=== PATIENT | female | born 1985 | race Caucasian/White ===

== ENCOUNTER 2019-10-02 11:47 | Emergency (ER) | payer OTHER, SELFPAY ==
--- NOTE | 2019-10-02 11:52 | ED.GENADULT ---
HPI - General Adult General Chief complaint: Urogenital-Female Stated complaint: bladder infection Time Seen by Provider: 10/02/19 11:53 Source: patient Mode of arrival: ambulatory Limitations: no limitations History of Present Illness HPI narrative: 33-year-old female patient presents to the [facility] with complaints of urinary symptoms that started yesterday. Patient states she tried to call her doctor's office but they were gone for the day already. Patient states she has had burning with urination, and increase in frequency. Patient states she did have a little bit of pelvic pain as well. Denies any low back pain, fevers, nausea, vomiting or diarrhea. Patient denies any due to a partial hysterectomy. Patient does admit that she has not been drinking much water and typically drinks sweet tea during the day. Related Data Home Medications Medication Instructions Recorded Confirmed Depakote 10/02/19 Zyprexa 10/02/19 10/02/19 atenolol 10/02/19 diazepam 10/02/19 methotrexate 10/02/19 olanzapine 10/02/19 oxcarbazepine 10/02/19 Allergies Allergy/AdvReac Type Severity Reaction Status Date / Time No Known Allergies Allergy Verified 10/02/19 12:03 Review of Systems Review of Systems: Narrative: CONSTITUTIONAL: Denies fever, chills, or sweats. EYES: Denies visual changes, redness, or discharge. ENT: Denies rhinorrhea, congestion, sore throat, or otalgia. CARDIOVASCULAR: Denies chest pain, palpitations, or edema. RESPIRATORY: Denies cough or dyspnea. GASTROINTESTINAL: Denies abdominal pain, nausea, vomiting, or diarrhea. GENITOURINARY: Denies dysuria or hematuria. Positive pain with urination and increase in frequency since yesterday SKIN: Denies rash or itching. MUSCULOSKELETAL: Denies back pain, joint pain, or myalgia. NEUROLOGIC: Denies headache, numbness, or weakness. PSYCHIATRIC: Denies anxiety or depression. [facility] Family History Family History Mother Family history of diabetes mellitus in first degree relative Grandparent Family history of malignant neoplasm of bone Social History Social History Alcohol intake: never Comments At the time of my signature I agree with nursing past medical history, surgical, social, and family history. There is no relevant family history pertinent to the presenting complaint. Exam Narrative: Exam Narrative: GENERAL: Well-appearing, well-nourished, and in no acute distress. HEAD: Normocephalic, atraumatic. EYES: PERRLA and EOMI. ENT: Nares clear, no rhinorrhea or epistaxis. Mucous membranes moist. NECK: Supple. No lymphadenopathy CHEST: Clear to auscultation. No respiratory distress. HEART: Regular rate and rhythm. No murmur heard. Normal peripheral pulses. ABDOMEN: Soft, nontender, nondistended, normal active bowel sounds. No CVA tenderness on percussion. EXTREMITIES: Normal range of motion. No edema. SKIN: Warm, dry, no rash. NEURO: No focal deficits. Alert and oriented x3. Course Vital Signs Vital signs: Vital Signs Temperature 36.1 C L 10/02/19 11:53 Pulse Rate 106 H 10/02/19 11:53 Respiratory Rate 18 10/02/19 11:53 Blood Pressure 125/65 10/02/19 11:53 Pulse Oximetry 100 10/02/19 11:53 Temperature 36.1 C L 10/02/19 11:53 Pulse Rate 106 H 10/02/19 11:53 Respiratory Rate 18 10/02/19 11:53 Blood Pressure 125/65 10/02/19 11:53 Pulse Oximetry 100 10/02/19 11:53 Vital signs reviewed. Medical Decision Making Differential Diagnosis Differential Diagnosis: Differential diagnosis: Uncomplicated lower UTI, uncomplicated UTI, pyelonephritis Discussed with patient that her urine dip did not show any nitrates or leukocytes however it is suggestive that she could be a little dehydrated. Discussed with her that since she is having symptoms we will go ahead and start her on some antibiotics today and send h
[2019-10-02 11:53] VITALS: BP 125/65; PULSE 106; RESP 18; TEMP 36.1; O2SAT 100
== END 2019-10-02 12:15 | disposition home or self-care (01) ==
PROVIDERS: Emergency Provider Nurse Practitioner Family
DX: N30.01 Acute cystitis with hematuria (principal)
CPT/HCPCS: 81003; 87086; 99213; G0463

== ENCOUNTER 2019-11-19 00:47 | Outpatient (CLI) | payer OTHER, SELFPAY ==
[2019-11-19 17:52] LABS: SARS-CoV-2 RNA PCR Negative
== END 2019-11-19 00:48 | disposition home or self-care (01) ==
LOC: ANHCOVIDDT 00:48
PROVIDERS: Visit Provider Obstetrics & Gynecology
DX: Z01.818 Encounter for other preprocedural examination (principal); Z11.59 Encounter for screening for other viral diseases
CPT/HCPCS: 87635; C9803; U0003

== ENCOUNTER 2019-11-19 13:53 | Outpatient (CLI) | payer OTHER, SELFPAY ==
[2019-11-19 15:14] LABS: Valproic Acid < 10.0 ug/mL (50-120)
== END 2019-11-19 13:54 | disposition home or self-care (01) ==
PROVIDERS: Anesthesiology; PCP Internal Medicine; Visit Provider Obstetrics & Gynecology
DX: Z01.818 Encounter for other preprocedural examination (principal); F31.9 Bipolar disorder, unspecified; R10.2 Pelvic and perineal pain
CPT/HCPCS: 36415; 80164; 86850; 86900; 86901

== ENCOUNTER 2019-11-22 02:42 | Day surgery (SDC) | payer OTHER, SELFPAY ==
--- NOTE | 2019-11-17 10:22 | P.HP_ITS ---
H&P: HPI History of Present Illness Chief complaint: Pain Narrative: Cherrie Delgado is a 33 year old female Status post this who is admitted for diagnostic laparoscopy. She has had several ER visits with severe pelvic pain. CT and ultrasound were helpful. She is finding the pain unrelenting fast for laparoscopy. risks and benefits reviewed including but not exclusive of , aspiration pneumonia, bleeding, transfusion, perforation injury to bowel, bladder, ureters or other internal organs with need for laparotomy. She voiced understanding. She had all questions answered. She asked to proceed Review of Systems Review of Systems: All systems reviewed & are unremarkable except as noted in HPI and below [facility] Social History Social History Alcohol intake: never Gender identity (if verbalized by the patient): Female Meds Home Medications and Allergies Home Medications Medication Instructions Recorded Confirmed Type nitrofurantoin monohyd/m-cryst 100 mg PO Q12H 5 Days #10 cap 10/02/19 Rx [Macrobid] ondansetron 4 mg PO Q6H PRN #10 tablet 10/02/19 Rx methotrexate sodium 15 mg PO WEEKLY 11/17/19 11/17/19 History Allergies Allergy/AdvReac Type Severity Reaction Status Date / Time No Known Allergies Allergy Verified 11/17/19 09:54 Exam Const: General: no acute distress Eyes: General: appearance normal, both eyes and all related structures Neck: Neck: supple and no JVD Thyroid: thyroid normal Resp: Effort & Inspection: normal respiratory effort Auscultation: clear to auscultation bilaterally Cardio: Rate: regular rate Rhythm: regular rhythm GI: Inspection: non-distended GI Palp: Yes Soft to palpation, No Tenderness to palpation present (GI) and No Guarding due to palpation present (GI) Auscultation: normal bowel sounds : General: Yes bladder normal to inspection External Female Exam: normal external appearance Speculum Exam - Vagina: normal appearance of the vagina and tenderness Speculum Exam - Cervix: Cervix absent Bimanual exam- vagina & uterus: uterus absent Bimanual Exam- Adnexa, other: tender bilaterally Skin: General skin exam: no rashes or lesions noted Extrem: General: normal to inspection and no edema Psych: Mental Status: mental status grossly normal Affect: normal affect Assessment and Plan Additional Plan impression: Severe pelvic pain Plan: Diagnostic laparoscopy
[2019-11-17 10:44] VITALS: BMI 20.7
[2019-11-22] VITALS (10 sets, daily range): BP systolic 93–129; BP diastolic 62–75; PULSE 77–113; RESP 10–16; TEMP 36.1–36.2; O2SAT 98–100
--- NOTE | 2019-11-22 06:39 | WPDHPUPDATE1 ---
History and Physical Update Update Date/Time: 11/22/19 06:39 History and Physical has been reviewed, including an updated exam of the patient. There are NO changes in the patient's condition. Risks, benefits, and alternatives have been discussed and questions answered. Patient agrees to proceed with procedure.
[2019-11-22] MEDS: LACTATED RINGERS 1,000 ML 30 ML IV CONT ×2 (08:30→10:32)
[2019-11-22] MEDS: MIDAZOLAM HCL 2 MG/2 ML VIAL IV PUSH (09:10)
--- NOTE | 2019-11-22 09:22 | WPDANESEPPF ---
Anes - Initial Pre Proc Eval Procedure: Operation Date: 11/22/19 10:00 Proposed Procedures p Diagnostic Laparoscopy - Addy Betancourt MD Date/Time: 11/22/19 09:22 Surgeon: Addy Betancourt MD Pre Op Diagnosis: Pain Patient Data Age: 33 Gender: F Height: 1.65 m Weight: 55.4 kg Last Vital Signs Temp 36.2 C L 11/22/19 09:14 Pulse 113 H 11/22/19 09:14 BP 129/75 11/22/19 09:14 Pulse Ox 100 11/22/19 09:14 Allergies Allergy/AdvReac Type Severity Reaction Status Date / Time No Known Allergies Allergy Verified 11/17/19 09:54 Home Medications Medication Instructions Recorded Confirmed Type atenolol 25 mg PO BID 11/17/19 11/22/19 History divalproex 500 mg PO HS 11/17/19 11/22/19 History lisdexamfetamine [Vyvanse] 30 mg PO DAILY 11/17/19 11/22/19 History methotrexate sodium 15 mg PO WEEKLY 11/17/19 11/22/19 History olanzapine 15 mg PO EVERY OTHER DAY 11/17/19 11/22/19 History zolpidem 10 mg PO HS 11/17/19 11/22/19 History Patient hx anesthesia problems: none Family hx anesthesia problems: none PMFSH Past Medical History Medical History (Updated 11/19/19 @ 13:21 by Alessandro Pinto DO) ADD (attention deficit disorder) Anxiety Bipolar disorder Depression Psoriasis Surgical History Surgical History (Updated 11/19/19 @ 13:21 by Alessandro Pinto DO) History of hysterectomy Social History Social History Alcohol intake: never Gender identity (if verbalized by the patient): Female Anes - Eval Final PreProcedure Day of Procedure 11/22/19 09:22 Patient weight: normal Heart: regular rate and rhythm Lungs: clear to auscultation and normal air movement Airway: Mallampati scale class II Neurological: alert and oriented Last oral intake: >/= 8 hours ASA classification: II Emergent: no Anesthetic plan: proceed Anesthesia type and monitoring: general ETT and standard monitoring Informed Consent: The patient's anesthetic plan and its attendant risks and benefits were discussed with the patient/family/POA. Questions were solicited and answers provided to the satisfaction of the patient/family/POA.
[2019-11-22] MEDS: KETOROLAC 30 MG/ML VIAL (*BKC) IV PUSH (10:03)
--- NOTE | 2019-11-22 10:10 | PM.PROC ---
Procedure Note - Detailed Date of procedure: 11/22/19 Pre-op diagnosis: Pain Surgeon: Addy Betancourt MD Postop diagnosis: Pelvic pain/endometriosis/adhesions Procedure: Laparoscopic destruction of endometriosis. Lysis of adhesions Anesthesia: General endotracheal EBL: 5cc Complications: None Findings: Absent uterus and tubes. Normal-appearing ovaries. Pelvic adhesions in the left lateral sidewall from the to the colon. Endometrial implants along the right uterus sacral ligaments Description of procedure: The patient was prepped and draped in the normal sterile fashion placed in dorsal lithotomy position. Under excellent general trach anesthesia weighted speculum placed in the posterior fornix of vagina. Sponge stick was placed in the bladder was drained of about 500cc of clear urine. Weighted speculum was removed and gloves were changed. A supraumbilical incision made patient passed in the abdomen. Abdomen was filled with CO2 gas [id number]. The 5mm trocar was placed in the abdomen under direct visualization assuring no injury. The patient placed in Trendelenburg and a suprapubic incision made. The 5mm trocar advanced in the abdomen under direct visualization assuring no injury. The above findings were seen the areas of endometriosis along the right uterosacral ligament were cauterized at 35 w per 2nd with monopolar cautery. The ovaries appeared within normal limits the adhesions on left were sharply dissected and cleared. The remainder of the pelvis a normal limits. The appendix and gallbladder appeared within normal limits. The patient patient was awakened after removal of the trocars and the gas. The incisions were closed with 4 Monocryl and glue patient went recovery in satisfactory condition. All sponge instrument counts were correct. There were no complications
[2019-11-22] MEDS: ONDANSETRON INJ 4 MG/2 ML VIAL IV PUSH (12:15)
--- NOTE | 2019-11-22 13:28 | SUR.PHASEII ---
1305 A WRITTEN PRESCRIPTION FOR NORCO 5/325MG SENT HOME WITH PT.
== END 2019-11-22 13:07 | disposition home or self-care (01) ==
PROVIDERS: PCP Internal Medicine; Visit Provider Obstetrics & Gynecology
PROC: (CPT 49320; principal; 2019-11-22 10:00)
DX: R10.2 Pelvic and perineal pain (principal); N80.3 Endometriosis of pelvic peritoneum; N73.6 Female pelvic peritoneal adhesions (postinfective); F98.8 Other specified behavioral and emotional disorders with onset usually occurring in childhood and adolescence; F31.9 Bipolar disorder, unspecified; F41.9 Anxiety disorder, unspecified
CPT/HCPCS: 58662; A9270; J0330; J1100; J1885; J2250; J2405; J2704; J3010; J7030; J7120

== ENCOUNTER 2020-12-13 11:47 | Outpatient (CLI) | payer OTHER, SELFPAY ==
--- NOTE | ~2020-12-13 | MMUS_ITS ---
EXAMINATION: MM diagnostic jhonathan BI w lucrecia, US breast RT limited HISTORY: Palpable lump in the upper outer quadrant of the right breast TECHNIQUE: Craniocaudal, mediolateral, and mediolateral oblique 3-D tomosynthesis images of the honorio ts were performed and synthetic 2-D images were generated. CAD analysis was submitted and interpreted . High resolution limited right breast ultrasound was performed. COMPARISON: None, baseline BREAST PARENCHYMAL COMPOSITION: The breasts are extremely dense, which lowers the sensitivity of mamm ography. FINDINGS: MAMMOGRAPHIC FINDINGS: There is a 1.7 x 1.2 cm oval, obscured, equal density mass in the anterior third of the upper outer q uadrant of the right breast at the 10:00 location 1.7 cm from the nipple corresponding to the palpabl e abnormality of concern. There is no evidence of suspicious mass, calcification, or architectural di stortion to suggest malignancy in the left breast. ULTRASOUND: There is a 1.7 x 1.1 cm oval, circumscribed, parallel, hypoechoic mass with posterior acoustic enhanc ement and internal vascularity at the 10:00 location 3 cm from the nipple responding to the palpable abnormality of concern. IMPRESSION: 1. Right breast mass corresponding to the palpable abnormality of concern which has imaging features suggestive of a fibroadenoma however, patient reports the mass is newly palpable and painful. 2. Ultrasound-guided biopsy is recommended. BI-RADS category 4, suspicious findings. Reviewed, dictated and finalized at location A. IMPRESSION: 1. Right breast mass corresponding to the palpable abnormality of concern which has imaging features suggestive of a fibroadenoma however, patient reports the mass is newly palpable and painful. 2. Ultrasound-guided biopsy is recommended. BI-RADS category 4, suspicious findings.
== END 2020-12-13 11:48 | disposition home or self-care (01) ==
PROVIDERS: PCP Internal Medicine; Visit Provider Obstetrics & Gynecology
DX: N63.10 Unspecified lump in the right breast, unspecified quadrant (principal); R92.8 Other abnormal and inconclusive findings on diagnostic imaging of breast
CPT/HCPCS: 76642; 77062; 77066; G0279

== ENCOUNTER 2021-01-04 11:48 | Emergency (ER) | payer OTHER, SELFPAY ==
[2021-01-04 12:01] VITALS: BP 105/66; PULSE 109; RESP 18; TEMP 36.7; O2SAT 99
[2021-01-04 12:13] VITALS: BP 105/66; PULSE 109; RESP 18; TEMP 36.7; O2SAT 99
--- NOTE | 2021-01-04 13:12 | ED.ABDPAIN ---
HPI - Abdominal Pain General Chief Complaint: Abdominal Pain Stated Complaint: Nausea and constipation Source: patient and RN notes reviewed Limitations: no limitations History of Present Illness HPI narrative: The patient, a smoker/nondrinker on several meds inc for bipolar, presents with epigastric discomfort. Patient states she has about 4-day worsening of ~14-day history of epigastric abdominal discomfort. She reports she has cramping lower epigastric/supraumbilical pain that is worsened in the last half week to involve vomiting x3 to 5/day, the most recent was yesterday. She has a prior history of ovarian cyst, endometriosis and abdominal hysterectomy . No fever, diarrhea, blood, cough, loss of taste/smell, CP, wheezing, S OB,nor frequency/urgency/dysuria like prior UTI. Last bowel movement was about a half a week ago, for which she takes MiraLAX as needed. Patient advised for further testing she needs go to hospital, which she declines. Related Data Home Medications Medication Instructions Recorded Confirmed aripiprazole [Abilify] 15 mg PO HS 01/04/21 01/04/21 lamotrigine [Lamictal] 100 mg PO BID 01/04/21 01/04/21 levetiracetam [Keppra] 500 mg PO BID 01/04/21 01/04/21 trazodone 150 mg PO HS 01/04/21 01/04/21 Allergies Allergy/AdvReac Type Severity Reaction Status Date / Time divalproex sodium AdvReac Other Verified 01/04/21 12:13 [From [facility]] Review of Systems Review of Systems: General/Constitutional: No weight loss,fever Eyes: N0: Redness,discharge Ears/Nose/Throat: No: Epistaxis,ear discharge Respiratory: Denies: Hemoptysis Gastrointestinal:, Bleeding-rectal, reports vomiting Skin: No Lumps, eruption Neurologic: No Focal Weakness,Sz Hematologic: Denies: Petechiae/Purpura Psychiatric: No: Suicida ideationl All Other Systems: Reviewed and Negative PMFSH Comments At time of signature, agree with nursing past medical, surgical, social and family history. There is no relevant family history pertinent to the presenting complaint Exam Narrative: General Appearance: Well appearance points to nausea at lower epigastrium/ supraumbilical EYE: PERRLA, Conjunctiva clear Ears: External ear normal Nose: Normal nose Mouth/Throat: Normal appearing, Normal lips Neck: Supple Respiratory: Airway patent, No respiratory distress Cardiovascular: RRR Abdomen: Soft, Non-tender, No massess, No organomegaly (no rebound/ surgical signs), Hyperactive bowel sounds Musculoskeletal: Full ROM Skin: Warm, Dry Neurological: A&O x3, CN II-X intact Psychiatric: Normal mood, Normal affect Course Vital Signs Vital signs: Vital Signs Temperature 98.1 F 01/04/21 12:01 Pulse Rate 109 H 01/04/21 12:01 Respiratory Rate 18 01/04/21 12:01 Blood Pressure 105/66 01/04/21 12:01 Pulse Oximetry 99 01/04/21 12:01 Temperature 98.1 F 01/04/21 12:13 Pulse Rate 109 H 01/04/21 12:13 Respiratory Rate 18 01/04/21 12:13 Blood Pressure 105/66 01/04/21 12:13 Pulse Oximetry 99 01/04/21 12:13 MDM - Abdominal Pain Lab Data Labs: Lab Results 01/04/21 Range/Units Unknown POC SARS CoV-2 Ag Negative (Negative) Discharge Plan Discharge Clinical Impression: Acute epigastric pain Patient Disposition: Home, Self-Care Condition: Stable Instructions: Epigastric Pain (ED) Additional Instructions: Advised to go to higher-level care facility to higher level testing if not improved , because for early diagnosis of serious problems [cholecystitis, pancreatitis, atypical appendicitis, etc], clear specific symptoms do not develope until later Prescriptions: New famotidine [Pepcid] 20 mg tablet 20 mg PO BID Qty: 30 RF: 3 promethazine 25 mg tablet 25 mg PO TID PRN (Reason: nausea and vomiting) Qty: 20 RF: 2 No Action levetiracetam [Keppra] 500 mg Tablet 500 mg PO BID RF: 0 trazodone 150 mg Tablet 150 mg PO HS RF: 0 lamotrigine [Lamictal] 1
== END 2021-01-04 13:21 | disposition home or self-care (01) ==
PROVIDERS: Emergency Provider Emergency Medicine; PCP Internal Medicine
DX: R10.13 Epigastric pain (principal); Z20.822 Contact with and (suspected) exposure to COVID-19; N80.9 Endometriosis, unspecified; F31.9 Bipolar disorder, unspecified
CPT/HCPCS: 87426; 99213; C9803; G0463

== ENCOUNTER → 2021-04-07 00:23 | Outpatient (CLI) | payer OTHER, SELFPAY ==
[2021-04-07 17:39] LABS: SARS-CoV-2 RNA PCR Negative
== END ==
PROVIDERS: PCP Internal Medicine; Visit Provider Internal Medicine Gastroenterology
DX: Z01.812 Encounter for preprocedural laboratory examination (principal); Z20.822 Contact with and (suspected) exposure to COVID-19
CPT/HCPCS: C9803; U0003; U0005

== ENCOUNTER 2021-04-10 02:42 | Day surgery (SDC) | payer OTHER, SELFPAY ==
[2021-03-22 12:56] VITALS: BMI 22.4
[2021-04-10 07:22] VITALS: BP 116/72; PULSE 89; RESP 18; TEMP 36.1; O2SAT 100
[2021-04-10] MEDS: LACTATED RINGERS 1,000 ML 150 ML IV CONT (07:39)
--- NOTE | 2021-04-10 07:56 | P.PNAN_ITS ---
Anes - Initial Pre Proc Eval Procedure: Operation Date: 04/10/21 08:30 Proposed Procedures p Esophagogastroduodenoscopy - Mehrdad Rosas MD Date/Time: 04/10/21 07:56 Surgeon: Mehrdad Rosas MD Pre Op Diagnosis: nausea, vomiting, GERD Patient Data Age: 35 Gender: F Height: 1.65 m Weight: 60 kg Last Vital Signs Temp 36.1 C L 04/10/21 07:22 Pulse 89 04/10/21 07:22 Resp 18 04/10/21 07:22 BP 116/72 04/10/21 07:22 Pulse Ox 100 04/10/21 07:22 Allergies Allergy/AdvReac Type Severity Reaction Status Date / Time sulfamethoxazole Allergy Itching Verified 04/10/21 07:21 [From Bactrim] trimethoprim [From Bactrim] Allergy Itching Verified 04/10/21 07:21 Home Medications Medication Instructions Recorded Confirmed Type aripiprazole [Abilify] 20 mg PO HS 01/04/21 03/22/21 History promethazine 25 mg PO TID PRN #20 tablet 01/04/21 03/22/21 Rx trazodone 150 mg PO HS 01/04/21 03/22/21 History lamotrigine 100 mg tablet 150 mg PO BID tablet 03/15/21 03/22/21 History Patient hx anesthesia problems: none Family hx anesthesia problems: none Results Review: All pre-operative results and documents have been reviewed as part of the pre-operative evaluation. [facility] Past Medical History Medical History (Updated 03/15/21 @ 15:01 by SHE Sharp) ADD (attention deficit disorder) Anxiety Bipolar disorder Depression Diarrhea Psoriasis Tobacco abuse Surgical History Surgical History History of hysterectomy Family History Family History Mother Family history of diabetes mellitus in first degree relative Grandparent Family history of malignant neoplasm of bone Social History Social History Smoking packs per day: 0.5 Smoking cigarettes per day: 10.0 Years smoked: 12 Smoking pack-years: 6.00 Tobacco type: cigarettes Alcohol intake: never Living arrangements: with family Gender identity (if verbalized by the patient): Female Spiritual care concerns: No Anes - Eval Final PreProcedure Day of Procedure 04/10/21 07:56 Patient weight: normal Heart: regular rate and rhythm Lungs: clear to auscultation and normal air movement Airway: Mallampati scale class II Neurological: alert and oriented Last oral intake: >/= 8 hours ASA classification: II Emergent: no Anesthetic plan: proceed Anesthesia type and monitoring: general GIVS Results Review: All pre-operative results and documents have been reviewed as part of the pre-operative evaluation. Informed Consent: The patient's anesthetic plan and its attendant risks and benefits were discussed with the patient/family/POA. Questions were solicited and answers provided to the satisfaction of the patient/family/POA.
--- NOTE | 2021-04-10 08:48 | WPDHPUPDATE1 ---
History and Physical Update Update Date/Time: 04/10/21 08:48 History and Physical has been reviewed, including an updated exam of the patient. There are NO changes in the patient's condition. Risks, benefits, and alternatives have been discussed and questions answered. Patient agrees to proceed with procedure.
[2021-04-10 09:07] VITALS: BP 95/59; PULSE 82; RESP 17; O2SAT 99
[2021-04-10 09:17] VITALS: BP 110/68; PULSE 98; RESP 22; O2SAT 100
[2021-04-10 09:27] VITALS: BP 113/58; PULSE 84; RESP 23; O2SAT 100
== END 2021-04-10 09:40 | disposition home or self-care (01) ==
PROVIDERS: PCP Internal Medicine; Visit Provider Internal Medicine Gastroenterology
PROC: 0DJ08ZZ Inspection of Upper Intestinal Tract, Via Natural or Artificial Opening Endoscopic (ICD-10-PCS; CPT 43235; principal; 2021-04-10 08:30)
DX: R11.2 Nausea with vomiting, unspecified (principal); R05.9 Cough, unspecified; R09.89 Other specified symptoms and signs involving the circulatory and respiratory systems; F98.8 Other specified behavioral and emotional disorders with onset usually occurring in childhood and adolescence; F31.9 Bipolar disorder, unspecified; L40.9 Psoriasis, unspecified; R19.7 Diarrhea, unspecified; Z87.891 Personal history of nicotine dependence
CPT/HCPCS: 43239; 88305; J2704; J7120

== ENCOUNTER 2021-12-20 15:28 | Emergency (ER) | payer OTHER, SELFPAY ==
[2021-12-20 15:38] VITALS: BP 109/74; PULSE 115; RESP 16; TEMP 37.1; O2SAT 100
--- NOTE | 2021-12-20 15:52 | ED.WOUNDLAC ---
HPI - Wound/Laceration General Chief Complaint: Wound/Laceration Stated Complaint: abscess on inner thigh Time Seen by Provider: 12/20/21 15:52 Source: patient Mode of arrival: ambulatory Limitations: no limitations History of Present Illness HPI narrative: 36-year-old female presented for complaint of 2 abscesses to right groin x3. 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 Endorses significant pain. States the 'bumps' are there all the time but when she shaves over them they increase in size. Has been taking ibuprofen and Tylenol and applying Prid. Related Data Home Medications Medication Instructions Recorded Confirmed aripiprazole 15 mg tablet (Abilify) 20 mg PO HS 01/04/21 11/15/21 lamotrigine 100 mg tablet 150 mg PO BID 03/15/21 11/15/21 (Lamictal) prazosin 5 mg capsule 5 mg PO QPM 07/20/21 11/15/21 Allergies Allergy/AdvReac Type Severity Reaction Status Date / Time sulfamethoxazole Allergy Itching Verified 12/20/21 15:56 [From Bactrim] trimethoprim [From Bactrim] Allergy Itching Verified 12/20/21 15:56 divalproex sodium AdvReac Other Verified 12/20/21 15:56 [From Depakote] Review of Systems Review of Systems: CONSTITUTIONAL: Denies body aches, fever, chills, or sweats. CARDIOVASCULAR: Denies chest pain, palpitations, or edema. RESPIRATORY: Denies dyspnea. GASTROINTESTINAL: Denies abdominal pain, nausea, vomiting, or diarrhea. GENITOURINARY: Denies dysuria or hematuria. SKIN: Reports abscess MUSCULOSKELETAL: Denies back pain, joint pain, or myalgia. NEUROLOGIC: Denies headache PMFSH Past Medical History Medical History ADD (attention deficit disorder) Anxiety Bipolar disorder Cough Depression Diarrhea Psoriasis Tobacco abuse Surgical History Surgical History History of hysterectomy Family History Family History Mother Family history of diabetes mellitus in first degree relative Diabetes mellitus Depression Grandparent Family history of malignant neoplasm of bone Father Alcoholism Depression Sibling Depression Social History Social History Smoking packs per day: 0.5 Smoking cigarettes per day: 10.0 Years smoked: 12 Smoking pack-years: 6.00 Smoking status: Current every day smoker Tobacco type: cigarettes Alcohol intake: never Substance use: never Substance use type: does not use Gender identity (if verbalized by the patient): Female Spiritual care concerns: No Comments At time of signature, I have reviewed and agree with nursing past medical, surgical, social and family history unless otherwise noted. Please see nursing chart for further information. There is no relevant family history pertinent to the presenting complaint Exam Narrative: GENERAL: Appears in pain; in no acute distress. EYES: conjunctivae clear, and EOMI. ENT: Mucous membranes moist. CHEST: Clear to auscultation. No respiratory distress. HEART: Regular rate and rhythm. SKIN: Right groin abscess 2cm diameter indurated with fluctuant center, tender to palpation no active drainage or streaking; plus proximal abscess 0.5cm diameter, tender NEURO: Alert and oriented x3. PSYCH: Normal mood and affect Course Course Emergency Course: Patient is aware of diagnosis, understands and agrees to treatment plan. Anticipatory guidance given. Patient agrees to follow-up as directed and is aware of reasons to seek care at the emergency department. Portions of this record may have been created with voice recognition software Level of Care: Express Care Visit Vital Signs Vital signs: Vital Signs Temperature 98.8 F
== END 2021-12-20 16:20 | disposition home or self-care (01) ==
PROVIDERS: Emergency Provider Nurse Practitioner Family; PCP Internal Medicine
DX: L02.214 Cutaneous abscess of groin (principal); F17.210 Nicotine dependence, cigarettes, uncomplicated; F31.9 Bipolar disorder, unspecified; Z86.14 Personal history of Methicillin resistant Staphylococcus aureus infection
CPT/HCPCS: 87070; 87077; 87205; 99212; G0463

== ENCOUNTER 2021-12-26 10:51 | Outpatient (CLI) | payer OTHER, SELFPAY ==
--- NOTE | ~2021-12-26 | NM_ITS ---
EXAM: NM gastric emptying study DATE: 12/27/2021 07:08 INDICATION: Nausea and vomiting TECHNIQUE: A gastric emptying study was performed using the methodology of Alicia AGUILAR, et al. J Nucl Med 2007; 48:568-572. The patient was given a meal consisting of 2 scrambled eggs labeled with 0.944 mCi Tc-99m sulfur colloid, 2 slices of toast, two packages of jam, and approximately 120 mL of water . Simultaneous anterior and posterior 1-min images of the abdomen were obtained with the patient supi ne at multiple time points over a total period of 4 hours. The geometric mean of anterior and posteri or views was determined, and the percentage retention was calculated for each time point. COMPARISON: None. FINDINGS: Gastric retention of the radiotracer-labeled meal was 42%, 20%, and 6% at the 1-hour, 2-hour, and 4-h our time points, respectively. With this technique, apparent rapid gastric emptying is suggested by < 30% gastric retention at 1 hour. Delayed gastric emptying is defined by gastric retention of >90% at 1 hour, >60% retention at 2 hours, or >10% retention at 4 hours. IMPRESSION: 1. Normal gastric emptying. Reviewed, dictated and finalized at location A. IMPRESSION: 1. Normal gastric emptying.
== END 2021-12-26 10:52 | disposition home or self-care (01) ==
PROVIDERS: PCP Internal Medicine; Visit Provider Nurse Practitioner
DX: R11.2 Nausea with vomiting, unspecified (principal)
CPT/HCPCS: 78264; A9541

== ENCOUNTER 2022-02-06 00:31 | Day surgery (SDC) | payer OTHER, SELFPAY ==
[2022-01-25 11:41] VITALS: BMI 19.8
[2022-02-06 09:28] VITALS: BP 105/59; PULSE 110; RESP 20; TEMP 36.5; O2SAT 98
--- NOTE | 2022-02-06 09:36 | WPDANESEPPF ---
Anes - Initial Pre Proc Eval Procedure: Operation Date: 02/06/22 10:45 Proposed Procedures p Colonoscopy - Mehrdad Rosas MD Date/Time: 02/06/22 09:36 Surgeon: Mehrdad Rosas MD Pre Op Diagnosis: weight loss, change in bowel habits Patient Data Age: 36 Gender: F Height: 1.65 m Weight: 53.1 kg Last Vital Signs Temp 97.7 F 02/06/22 09:28 Pulse 110 H 02/06/22 09:28 Resp 20 02/06/22 09:28 BP 105/59 L 02/06/22 09:28 Pulse Ox 98 02/06/22 09:28 O2 Del Method Room Air 02/06/22 09:28 Allergies Allergy/AdvReac Type Severity Reaction Status Date / Time sulfamethoxazole Allergy Itching Verified 02/06/22 09:27 [From Bactrim] trimethoprim [From Bactrim] Allergy Itching Verified 02/06/22 09:27 divalproex sodium AdvReac Other Verified 02/06/22 09:27 [From Depakote] Home Medications Medication Instructions Recorded Confirmed Type aripiprazole 15 mg tablet (Abilify) 20 mg PO HS 01/04/21 01/25/22 History lamotrigine 100 mg tablet 150 mg PO BID 03/15/21 01/25/22 History (Lamictal) ondansetron 4 mg disintegrating 4 mg PO Q8H PRN nausea and 11/15/21 01/25/22 Rx tablet vomiting #30 tabs amitriptyline 25 mg tablet 25 mg PO QHS #30 tabs 01/09/22 01/25/22 Rx lisdexamfetamine 40 mg capsule 40 mg PO DAILY 01/09/22 01/25/22 History (Vyvanse) valacyclovir 500 mg tablet 500 mg PO DAILY 01/25/22 01/25/22 History Patient hx anesthesia problems: none Family hx anesthesia problems: none Results Review: All pre-operative results and documents have been reviewed as part of the pre-operative evaluation. [facility] Past Medical History Medical History ADD (attention deficit disorder) Anxiety Bipolar disorder Cough Decreased appetite Depression Diarrhea Psoriasis Tobacco abuse Surgical History Surgical History History of hysterectomy Family History Family History Mother Family history of diabetes mellitus in first degree relative Diabetes mellitus Depression Grandparent Family history of malignant neoplasm of bone Father Alcoholism Depression Sibling Depression Social History Social History Smoking packs per day: 0.5 Smoking cigarettes per day: 10.0 Years smoked: 12 Smoking pack-years: 6.00 Smoking status: Current every day smoker Tobacco type: cigarettes Alcohol intake: never Substance use: current Substance use type: marijuana Other substance usage details: daily- uses to help with appetite at bedtime Living arrangements: with family Additional living arrangements comments: boyfriend and children Gender identity (if verbalized by the patient): Female Spiritual care concerns: No Anes - Eval Final PreProcedure Day of Procedure 02/06/22 09:36 Patient weight: normal Heart: regular rate and rhythm Lungs: clear to auscultation Airway: Mallampati scale class II Neurological: alert and oriented Last oral intake: >/= 8 hours ASA classification: II Emergent: no Anesthetic plan: proceed Anesthesia type and monitoring: general GIVS and standard monitoring Results Review: All pre-operative results and documents have been reviewed as part of the pre-operative evaluation. Informed Consent: The patient's anesthetic plan and its attendant risks and benefits were discussed with the patient/family/POA. Questions were solicited and answers provided to the satisfaction of the patient/family/POA.
[2022-02-06] MEDS: LACTATED RINGERS 1,000 ML 150 ML IV CONT (09:37)
--- NOTE | 2022-02-06 10:11 | WPDHPUPDATE1 ---
History and Physical Update Update Date/Time: 02/06/22 10:11 History and Physical has been reviewed, including an updated exam of the patient. There are NO changes in the patient's condition. Risks, benefits, and alternatives have been discussed and questions answered. Patient agrees to proceed with procedure.
[2022-02-06 10:35] VITALS: BP 98/65; PULSE 92; RESP 24; O2SAT 100
[2022-02-06 10:45] VITALS: BP 102/68; PULSE 96; RESP 21; O2SAT 100
[2022-02-06 10:55] VITALS: BP 124/62; PULSE 102; RESP 22; O2SAT 100
== END 2022-02-06 10:58 | disposition home or self-care (01) ==
PROVIDERS: PCP Internal Medicine; Visit Provider Internal Medicine Gastroenterology
PROC: 0DJD8ZZ Inspection of Lower Intestinal Tract, Via Natural or Artificial Opening Endoscopic (ICD-10-PCS; CPT 45378; principal; 2022-02-06 10:45)
DX: R63.4 Abnormal weight loss (principal); K59.00 Constipation, unspecified; R68.81 Early satiety; R63.0 Anorexia; L40.9 Psoriasis, unspecified; R05.3 Chronic cough; F98.8 Other specified behavioral and emotional disorders with onset usually occurring in childhood and adolescence; F41.9 Anxiety disorder, unspecified; F31.9 Bipolar disorder, unspecified; F12.90 Cannabis use, unspecified, uncomplicated; F17.210 Nicotine dependence, cigarettes, uncomplicated
CPT/HCPCS: 45378; J2704; J7120

== ENCOUNTER 2022-02-13 08:12 | Outpatient (CLI) | payer OTHER, SELFPAY ==
--- NOTE | ~2022-02-13 | US_ITS ---
EXAMINATION: US abdomen limited DATE: 02/13/2022 08:50 INDICATION: Anorexia. TECHNIQUE: Multiple grayscale and Doppler ultrasound images of the abdomen were obtained. COMPARISON: CT abdomen and pelvis 05/26/2013 FINDINGS: The visualized portions of the head, body, and tail of the pancreas are normal. The liver i s normal without focal lesion. There is normal flow in main portal vein. The gallbladder is normal in size. No gallstones or gallbladder wall thickening. There was no sonographic [place] sign. The common duct is normal and measures 3 mm. IMPRESSION: 1. Normal right upper quadrant ultrasound. Reviewed, dictated and finalized at location A.
[2022-02-13 09:10] LABS: Hematocrit 40.1 % (37.0-47.0); Hemoglobin 13.7 g/dL (12.0-15.0); Mean Corpuscular HGB Conc 34.2 g/dl (32-36); Mean Corpuscular Hemoglobin 32.3 pg (26-34); Mean Corpuscular Volume 94.6 fl (80-100); Mean Platelet Volume 8.9 fl (7.4-10.4); Platelet Count Result 253 k/mm3 (150-375); Red Blood Count 4.24 M/mm3 (4.2-5.4); Red Cell Distribution Width 12.6 % (11.5-14.5); White Blood Count 10.8 K/mm3 (4.5-10.0)
[2022-02-13 09:48] LABS: Alanine Aminotransferase 16 U/L (6-35); Albumin Level 4.6 g/dL (3.5-5.1); Alkaline Phosphatase 66 U/L (38-126); Anion Gap 10 mmol/L (8-16); Aspartate Amino Transferase 24 U/L (14-36); Bilirubin,Total 0.2 mg/dL (0.2-1.3); Blood Urea Nitrogen 19 mg/dL (7-17); Calcium 9.2 mg/dL (8.4-10.2); Carbon Dioxide 25 mmol/L (22-30); Chloride 103 mmol/L (98-107); Estimated Glomerular Filt Rate > 60; Glucose 54 mg/dL (65-110); Potassium 4.2 mmol/L (3.4-5.0); Sodium 138 mmol/L (137-145)
[2022-02-19 09:06] LABS: Gliadin AB, IgG <1.0; Tissue Transglutaminase IgG Ab <1.0
[2022-02-19 09:07] LABS: TTG IGA AB <1.0
== END 2022-02-13 08:13 | disposition home or self-care (01) ==
PROVIDERS: PCP Internal Medicine; Visit Provider Nurse Practitioner
DX: R63.4 Abnormal weight loss (principal); R11.2 Nausea with vomiting, unspecified; R63.0 Anorexia; R19.4 Change in bowel habit
CPT/HCPCS: 36415; 76705; 80053; 83516; 84443; 85027; 86255

== ENCOUNTER 2022-02-20 06:52 | Outpatient (CLI) | payer OTHER, SELFPAY ==
--- NOTE | ~2022-02-20 | NM_ITS ---
NM hepatobiliary wo pharm DATE: 02/20/2022 11:32 INDICATION: Nausea and vomiting, weight loss, decreased appetite TECHNIQUE: Serial images of the abdomen after intravenous injection of 4.6 mCi 99m technetium Cholete c COMPARISON: None FINDINGS: Normal hepatic extraction of the radiopharmaceutical. Activity is noted in the gallbladder and bile ducts and small bowel within 15 minutes. 60 minute gallbladder ejection fraction measures 28%. IMPRESSION: Negative examination Reviewed, dictated and finalized at Location A. Reviewed, dictated and finalized at location B. IMPRESSION: Negative examination
== END 2022-02-20 06:53 | disposition home or self-care (01) ==
LOC: ANHIMG 06:55
PROVIDERS: PCP Internal Medicine; Visit Provider Nurse Practitioner Family
DX: R11.2 Nausea with vomiting, unspecified (principal); R63.0 Anorexia; R63.4 Abnormal weight loss
CPT/HCPCS: 78226; A9537

== ENCOUNTER 2022-02-22 00:26 | Day surgery (SDC) | payer OTHER, SELFPAY ==
--- NOTE | 2022-02-20 09:16 | SUR.PREOP ---
Report to the Outpatient Waiting Room, entrance under the green pavilion located off [facility], at time 1130 on date 02/22/22. OR Time: 1330. Time changes happen often and if your time is changed the preop area will call you the afternoon before. - You and your visitor will be asked to self-screen and do not enter if you have any COVID symptoms. - Only one visitor and NO children visitors are allowed at this time. - The patient visitor is requested to leave or wait in car when not with patient due to restrictions. - A mask is required within the hospital. Patients may have clear liquids (water, carbonated beverages, clear teas, apple juice) until 3 hours prior to surgery with a maximum of 20 ounces. - No food from midnight until time of surgery - Infants may have breast milk until 4 hours before surgery, infant formula 6 hours prior to surgery. - Children will be allowed to drink immediately following surgery. If applicable, please bring a bottle or sippy cup to assist with drinking. Juice, water, soda, and popsicles are readily available. For infants on formula, please bring formula the day of surgery. Pacifiers are allowed. Take the following medications with a SIP of water the morning of surgery: LAMICTAL, ZOFRAN Please no make-up, nail lithuanian, hairspray, perfume, deodorant, or body powder the day of surgery. No jewelry (including any body piercings) or valuables the day of surgery, leave them at home. Please take a shower or bath the night before, or the morning of, surgery with an antibacterial soap. Wear comfortable, loose fitting clothing. Children are encouraged to wear pajamas. - Jewelry must be removed prior to entering the operating room. Rings and piercings that are not removed may be cut off. - The hospital will not accept responsibility for valuables. - Please leave all valuables, including medications, at home the day of surgery. If you are going home after surgery, a licensed gas truck driver must drive you home. - NO public transportation without another adult. - We recommend that an adult stay with you for 24 hours following discharge. - We also recommend that you do not drive, make important decision, drink alcoholic beverages, or take any drugs that were not prescribed by your health care provider for at least 24 hours after your discharge time. For Pediatric surgeries, we recommend two adults accompany the child home (only one inside the building at this time). Follow any additional instructions given to you from your surgeon. If you or anyone in your household have experienced Covid symptoms in the past week, please notify your surgeon or the nurse liaison at the phone number below for possible testing. Telephone instructions given to CÉSAR HECTOR and asked if any additional questions and then verbalized understanding. Patient advised to call surgeon office or pre surgery nurse liaison [phone] if any additional questions.
[2022-02-20 09:22] VITALS: BMI 19.2
--- NOTE | 2022-02-22 07:51 | WPDANESEPPF ---
Anes - Initial Pre Proc Eval Procedure: Operation Date: 02/22/22 13:30 Proposed Procedures p Excision Right Groin Hidradenitis - Henrique Rust DO Date/Time: 02/22/22 07:51 Surgeon: Henrique Rust DO Pre Op Diagnosis: hydradenitis Patient Data Age: 36 Gender: F Height: 1.65 m Weight: 52.4 kg Allergies Allergy/AdvReac Type Severity Reaction Status Date / Time sulfamethoxazole Allergy Severe Itching Verified 02/21/22 08:20 [From Bactrim] trimethoprim [From Bactrim] Allergy Severe Itching Verified 02/21/22 08:20 divalproex sodium Allergy Unknown Other Verified 02/21/22 08:20 [From Depakote] Home Medications Medication Instructions Recorded Confirmed Type aripiprazole 15 mg tablet (Abilify) 20 mg PO HS 01/04/21 02/20/22 History lamotrigine 100 mg tablet 150 mg PO BID 03/15/21 02/20/22 History (Lamictal) ondansetron 4 mg disintegrating 4 mg PO Q8H PRN nausea and 11/15/21 02/20/22 Rx tablet vomiting #30 tabs lisdexamfetamine 40 mg capsule 40 mg PO DAILY 01/09/22 02/20/22 History (Vyvanse) valacyclovir 500 mg tablet 500 mg PO DAILY 01/25/22 02/20/22 History amitriptyline 25 mg tablet 50 mg PO QHS 1 month #60 tabs 02/21/22 02/21/22 Rx megestrol 400 mg/10 mL (10 mL) 400 mg (10 mL) PO DAILY #1,000 mL 02/21/22 02/21/22 Rx oral suspension Patient hx anesthesia problems: none Family hx anesthesia problems: none Results Review: All pre-operative results and documents have been reviewed as part of the pre-operative evaluation. [facility] Past Medical History Medical History (Updated 02/21/22 @ 08:44 by Mehrdad Rosas MD) ADD (attention deficit disorder) Anxiety Bipolar disorder Cough Decreased appetite Depression Diarrhea Lack of appetite Psoriasis Tobacco abuse Surgical History Surgical History History of hysterectomy Family History Family History Mother Family history of diabetes mellitus in first degree relative Diabetes mellitus Depression Grandparent Family history of malignant neoplasm of bone Father Alcoholism Depression Sibling Depression Social History Social History Smoking packs per day: 0.5 Smoking cigarettes per day: 10.0 Years smoked: 12 Smoking pack-years: 6.00 Smoking status: Current every day smoker Tobacco type: cigarettes Substance use: current Substance use type: marijuana Other substance usage details: daily- uses to help with appetite at bedtime Additional living arrangements comments: boyfriend and children Gender identity (if verbalized by the patient): Female Spiritual care concerns: No Anes - Eval Final PreProcedure Day of Procedure 02/22/22 07:51 Patient weight: normal Heart: regular rate and rhythm Lungs: clear to auscultation Airway: Mallampati scale class II Neurological: alert and oriented Last oral intake: >/= 8 hours ASA classification: II Emergent: no Anesthetic plan: proceed Anesthesia type and monitoring: general GIVS and LMA and standard monitoring Results Review: All pre-operative results and documents have been reviewed as part of the pre-operative evaluation. Informed Consent: The patient's anesthetic plan and its attendant risks and benefits were discussed with the patient/family/POA. Questions were solicited and answers provided to the satisfaction of the patient/family/POA.
[2022-02-22] MEDS: LACTATED RINGERS 1,000 ML 30 ML IV CONT (12:00)
[2022-02-22 12:30] VITALS: BP 110/58; PULSE 99; RESP 16; TEMP 36.6; O2SAT 99
[2022-02-22] MEDS: MIDAZOLAM HCL (*CRX) 2 MG/2 ML VIAL IV PUSH (12:46)
--- NOTE | 2022-02-22 13:28 | PM.IMHP ---
H&P: HPI History of Present Illness Date/Time: 02/22/22 13:28 Chief Complaint: Right groin hidradenitis Narrative: This is a 36-year-old woman who presents for excision of right groin hidradenitis. She reports no significant changes since last seen in the office. Review of Systems Review of Systems: All systems reviewed & are unremarkable except as noted in HPI and below Constitutional: Constitutional: Denies chills, Denies fever(s), Denies headache(s) and Denies weight loss Eyes: Eyes: Denies change in vision ENT: Denies dizziness, Denies headache(s), Denies neck mass and Denies throat swelling Cardiovascular: Cardiovascular: Denies chest pain, Denies lightheadedness and Denies dyspnea Respiratory: Respiratory: Denies cough, Denies dyspnea and Denies wheezing Gastrointestinal: Gastrointestinal: Denies abdominal pain, Denies change in bowel habits, Denies nausea and Denies vomiting Genitourinary: Genitourinary: Denies hematuria and Denies dysuria Musculoskeletal: Musculoskeletal: Reports as per HPI Integumentary/Breasts: Skin/Breast: Reports as per HPI Neurologic: Denies dizziness and Denies headache(s) Allergic/Immunologic: Allergic/Immunologic: Denies throat swelling and Denies wheezing PMFSH Past Medical History Medical History (Updated 02/21/22 @ 08:44 by Mehrdad Rosas MD) ADD (attention deficit disorder) Anxiety Bipolar disorder Cough Decreased appetite Depression Diarrhea Lack of appetite Psoriasis Tobacco abuse Surgical History Surgical History History of hysterectomy Family History Family History Mother Family history of diabetes mellitus in first degree relative Diabetes mellitus Depression Grandparent Family history of malignant neoplasm of bone Father Alcoholism Depression Sibling Depression Social History Social History Smoking packs per day: 0.5 Smoking cigarettes per day: 10.0 Years smoked: 12 Smoking pack-years: 6.00 Smoking status: Current every day smoker Tobacco type: cigarettes Substance use: current Substance use type: marijuana Other substance usage details: daily- uses to help with appetite at bedtime Additional living arrangements comments: boyfriend and children Gender identity (if verbalized by the patient): Female Spiritual care concerns: No Meds Home Medications and Allergies Home Medications Medication Instructions Recorded Confirmed Type aripiprazole 15 mg tablet (Abilify) 20 mg PO HS 01/04/21 02/20/22 History lamotrigine 100 mg tablet 150 mg PO BID 03/15/21 02/20/22 History (Lamictal) ondansetron 4 mg disintegrating 4 mg PO Q8H PRN nausea and 11/15/21 02/20/22 Rx tablet vomiting #30 tabs lisdexamfetamine 40 mg capsule 40 mg PO DAILY 01/09/22 02/20/22 History (Vyvanse) valacyclovir 500 mg tablet 500 mg PO DAILY 01/25/22 02/20/22 History amitriptyline 25 mg tablet 50 mg PO QHS 1 month #60 tabs 02/21/22 02/21/22 Rx megestrol 400 mg/10 mL (10 mL) 400 mg (10 mL) PO DAILY #1,000 mL 02/21/22 02/21/22 Rx oral suspension Allergies Allergy/AdvReac Type Severity Reaction Status Date / Time sulfamethoxazole Allergy Severe Itching Verified 02/21/22 08:20 [From Bactrim] trimethoprim [From Bactrim] Allergy Severe Itching Verified 02/21/22 08:20 divalproex sodium Allergy Unknown Other Verified 02/21/22 08:20 [From Depakote] Exam Const: General: no acute distress and alert Orientation/consciousness: patient oriented x3 HENMT: Head: normocephalic and atraumatic Ears: hearing grossly normal bilaterally General nose exam: Normal nares present Mouth: Yes Normal oral and palatal mucosa present Eyes: Periorbital: periorbital findings normal Sclera: sclerae normal EOM: EOMs intact bilaterally Neck: Neck: no
--- NOTE | 2022-02-22 13:29 | WPDHPUPDATE1 ---
History and Physical Update Update Date/Time: 02/22/22 13:29 History and Physical has been reviewed, including an updated exam of the patient. There are NO changes in the patient's condition. Risks, benefits, and alternatives have been discussed and questions answered. Patient agrees to proceed with procedure.
[2022-02-22] MEDS: ceFAZolin 2 GM/D5W 50 ML 2 GM/50 ML BAG IVPB (14:11)
[2022-02-22] MEDS: KETOROLAC 30 MG/ML VIAL (*BKC) IV PUSH (14:16)
[2022-02-22] MEDS: LIDO 1%/EPINEPHRINE 1:100,000 50 ML VIAL INFILTRATE (14:27)
[2022-02-22 14:55] VITALS: BP 91/46; PULSE 104; RESP 12; O2SAT 100
--- NOTE | 2022-02-22 15:18 | W.PM.PROC2 ---
Procedure Note - Detailed Date of Procedure 02/22/22 Pre-op Diagnosis Right groin hidradenitis Post-op Diagnosis Same Procedure Performed Excision of right groin hidradenitis Surgeon Henrique Rust, DO Anesthesia MAC and Local (1% lidocaine with epi) Indications This is a 36-year-old woman who presents with intermittent infections in her right groin over the past 9 months. She has had 2 small areas that continued to swell and cause pain and intermittent drainage. She has been placed on antibiotics previously for this but continues to have flare-ups. She was found to have evidence of hidradenitis in the right groin. Discussed treatment options with the patient and decision was made to proceed with excision of right groin hidradenitis. Findings Excision of right groin hidradenitis was performed. The patient was found have 2 small wound openings with induration and tracking underneath the skin located about 4 cm apart. Elliptical incision was made to encompass both areas and this was completely excised and sent for pathology. No other surrounding abnormalities were noted. Description of Procedure Procedure as well as risks, benefits, and alternatives were discussed with the patient. Written consent was obtained and placed in chart prior to procedure. Patient was brought back to surgical suite. She was placed supine on operating table. Time-out was done to confirm patient and procedure. IV sedation was then administered by the anesthesia department. She was then placed in dorsal lithotomy position and her groin region was prepped and draped in sterile fashion using Betadine prep. 1% lidocaine with epinephrine was infiltrated locally around the area for excision. A 3 cm x 6 cm elliptical incision was then made around the involved skin using a 15 blade scalpel. Electrocautery was then used for hemostasis and for dissection through the subcutaneous tissue. The involved skin was completely excised and sent to the lab for pathology. The wound bed was then irrigated with sterile saline. Hemostasis appeared adequate and no other abnormalities were noted. The skin edges were then reapproximated using 3-0 nylon vertical mattress interrupted sutures. Bacitracin ointment was then applied followed by Xeroform gauze, 4 x 4 gauze, and tape. The patient was then awakened from anesthesia and transferred to recovery. Estimated Blood Loss -5.0 Pathology Yes ( Right groin hidradenitis) Complications No immediate complications Condition Stable Disposition Same day [facility] Billing Surgery - Charge Forward: Surgery Billing
[2022-02-22] MEDS: oxyCODONE HCL (*CRX) 5 MG TAB IR PO (15:28)
[2022-02-22 15:35] VITALS: BP 115/61; PULSE 91; RESP 20
[2022-02-22 15:45] VITALS: BP 109/67; PULSE 79; RESP 20
== END 2022-02-22 15:50 | disposition home or self-care (01) ==
PROVIDERS: PCP Internal Medicine; Visit Provider Surgery
PROC: (CPT 11462; principal; 2022-02-22 13:30)
DX: L73.2 Hidradenitis suppurativa (principal); Z79.52 Long term (current) use of systemic steroids; F98.8 Other specified behavioral and emotional disorders with onset usually occurring in childhood and adolescence; F31.9 Bipolar disorder, unspecified; F41.9 Anxiety disorder, unspecified; L40.9 Psoriasis, unspecified; F17.210 Nicotine dependence, cigarettes, uncomplicated; F12.90 Cannabis use, unspecified, uncomplicated
CPT/HCPCS: 11462; 88304; A9270; J0690; J1170; J1885; J2250; J2405; J2704; J3010; J7120

== ENCOUNTER 2022-12-19 13:37 | Observation (INO) | payer OTHER, SELFPAY ==
[2022-12-19] VITALS (107 sets, daily range): BP systolic 82–115; BP diastolic 36–76; PULSE 74–117; RESP 16–18; TEMP 37.1; O2SAT 95–100; BMI 21.2
--- NOTE | 2022-12-19 13:44 | OBADM ---
This patient, Cherrie Delgado, admitted to the OB room 112 by stretcher/ambulancefor observation. Patient/family oriented to hospital policies and general routines including ID bracelet, bed and alarms, visiting hours, pain management, procedures, bathroom and other care routines, personal items, smoking policy, room service/diet, and visiting hours. Patient/Family are encouraged to report perceived risks to care and to ask questions if they do not understand what they are told or what they should do.
[2022-12-19] MEDS: LACTATED RINGERS 1,000 ML 125 ML IV CONT ×2 (15:00→23:06)
[2022-12-19 15:23] LABS: Hematocrit 36.1 % (37.0-47.0)
--- NOTE | 2022-12-19 15:48 | PC.NURSE ---
Dr. Montero returned page and informed of H&H and pt's increased pain again. Orders received for pain management. MD will be in to see pt when she is done in the office.
[2022-12-19] MEDS: MORPHINE SULFATE (*CRX) 2 MG/ML INJ IV PUSH (16:13)
[2022-12-19] MEDS: NICOTINE (*PBKC) 7 MG PATCH 1 PATCH TRANSDERM (16:29)
[2022-12-19] MEDS: MORPHINE SULFATE PCA (*CRX) 30 MG/30 ML SYR IV CONT (16:32)
--- NOTE | 2022-12-19 17:03 | PC.NURSE ---
Dr. Montero in to see and assess pt. explained the hemorrhagic ovarian cyst to pt and significant other. Discussed options of diagnostic laparoscopy or continuing to observe pt overnight and repeat H&H in am. Pt states she is just really hungry. Orders received for pt to eat now and then NPO x ice chips sparingly after midnight. Repeat H&H in am. To notify Dr. Montero if pt should start having any shoulder pain.
--- NOTE | 2022-12-19 17:17 | PM.IMHP ---
H&P: HPI History of Present Illness Date/Time: 12/19/22 17:17 Chief Complaint: Pelvic pain- acute onset Narrative: The patient is a 37-year-old patient of Dr. Vipin Garcia with the sudden onset last evening of pelvic pain and pressure. Patient went to the emergency room at [facility] this morning at approximately 8:[address] scan and ultrasound consistent with ruptured ovarian cyst with no residual cyst seen. There are 2 areas of measurable fluid 1 around each ovary of approximately 5cm each. Patient's pain initially was quite high but after fentanyl at the [facility] hospital it reduced to a 1/10. Her pain on arrival at [place] was increasing again therefore a morphine ABLE BODIED TANKERMAN was started. Her current pain level is a 3/10. She denies other complaints. Initially, hemoglobin at 8 this morning was 14 and after 8hours and 2L of fluid, her hemoglobin is 12. Vital signs have remained stable since admission to the emergency room. Her blood pressures run 90-100/50-60 which is her baseline over many years per the computer charting. Patient has no dizziness or shortness of breath. She states she is hungry. Significant other present for interview and exam. 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 (normal spontaneous vaginal delivery) x2 Psoriasis Tobacco abuse smokes 1/2 pack per day plus vaping Surgical History Surgical History (Updated 12/19/22 @ 17:27 by Cherrie Montero MD) H/O laparoscopy at least x4 per patient report history of removal of cysts and endometriosis Hidradenitis R groin hidradenitis excised on 02/22/22 History of hysterectomy per patient total vaginal hysterectomy for fibroids approximately4+ years ago History of tonsillectomy Family History Family History Mother Family history of diabetes mellitus in first degree relative Diabetes mellitus Depression Grandparent Family history of malignant neoplasm of bone Father Alcoholism Depression Sibling Depression Social History Social History Smoking packs per day: 0.5 Smoking cigarettes per day: 10.0 Years smoked: 22 Smoking pack-years: 11.00 Smoking status: Current every day smoker Tobacco type: cigarettes and e-cigarettes/vaping Second hand tobacco smoke exposure: Yes Additional smoking assessment comments: Pt vapes when she doesn't want to smoke an entire cigarette Alcohol intake: current Substance use: current Substance use type: marijuana Other substance usage details: THC gummies from dispensary for sleep; 1 alcohol drink/month Last use: THC last use 12/18/22 pm Lack of Transportation: No Lack of Food: Never True Current Housing: I Have Housing Concerned About Future Housing: No Difficulty Paying Gas/Electric Bills: No Difficulty Paying for Meds: No Currently Unemployed: No Education: High School Diploma/GED Difficulty w/ Childcare or Family Care: No Living arrangements: with family Additional living arrangements comments: boyfriend and children Gender identity (if verbalized by the patient): Female Spiritual care concerns: No Meds Home Medications and Allergies Home Medications Medication Instructions Recorded Confirmed Type valacyclovir 500 mg tablet 500 mg PO DAILY 01/25/22 12/19/22 History amitriptyline 25 mg tablet 50 mg PO QHS 1 month #60 tabs 08/15/22 12/19/22 Rx dexmethylphenidate 20
--- NOTE | 2022-12-19 19:36 | PC.NURSE ---
Dr. Montero on unit and gave orders that if pt's pain remains well controlled and she would like to switch from IV pain meds to oral pain meds during the night she can switch to Traphill 5 mg po q 4 hr PRN pain >3. Pt informed of this.
[2022-12-19] MEDS: AMITRIPTYLINE HCL 25 MG TABLET 50 MG PO (20:42)
[2022-12-19] MEDS: ARIPiprazole 10 MG TABLET 20 MG PO (20:43)
[2022-12-19] MEDS: lamoTRIgine 50 MG TABLET 150 MG PO (20:44)
[2022-12-19] MEDS: traZODone HCL 50 MG TABLET 150 MG PO (20:47)
[2022-12-19] MEDS: metroNIDAZOLE 250 MG TABLET 500 MG PO (20:47)
[2022-12-20] VITALS (111 sets, daily range): BP systolic 87–100; BP diastolic 47–59; PULSE 65–102; RESP 14–17; TEMP 36.5; O2SAT 87–100
[2022-12-20] MEDS: HYDROcodone/acetaminophen (*CRX) 5-325 MG TABLET 1 TAB PO (07:20)
--- NOTE | 2022-12-20 07:46 | PM.GYNPNOP ---
DIRECTOR OF TRAINING - A/P Assessment and plan (1) Ruptured ovarian cyst: Code(s): N83.209 - Unspecified ovarian cyst, unspecified side Status: Acute Assessment and Plan: Clinically improved and stable. Requesting dc home. Due to prior xanax addiction, only wants [address]. Rec. no sexual activity for 1 week, no lifting or exercise. H/H pending due to downtime with computer system. Assuming not sig. lower, will dc home. Time Spent With Patient Time: Total time spent is greater than 50% in coordination of care (as documented) at patient's floor/unit and/or counseling patient: Time with patient: less than 15 minutes DIRECTOR OF TRAINING- PN:Subj Post-Op Subjective Date/time seen: 12/20/22 07:46 Subjective: patient reports feeling better, pain is well controlled (no PIPE BENDER dose since mn) and patient is tolerating oral intake Exam Const: General: other (moving in bed without apparent discomfort) GI: Inspection: normal to inspection GI Palp: Yes abdominal tenderness (very mild lower ) and No Rebound tenderness present DIRECTOR OF TRAINING - PN: Obj Data Vital Signs Vital Signs: Vital Signs - 24 hr 12/19/22 13:43 12/19/22 13:45 12/19/22 13:48 Temperature Pulse Rate 94 92 Respiratory Rate Blood Pressure 115/61 99/61 L Pulse Oximetry 98 99 Oxygen Delivery 12/19/22 16:16 12/19/22 16:17 12/19/22 16:21 Temperature Pulse Rate 102 H Respiratory Rate Blood Pressure 109/68 Pulse Oximetry 100 100 Oxygen Delivery 12/19/22 16:39 12/19/22 16:44 12/19/22 16:49 Temperature Pulse Rate Respiratory Rate Blood Pressure Pulse Oximetry 99 100 99 Oxygen Delivery 12/19/22 16:54 12/19/22 16:59 12/19/22 17:04 Temperature Pulse Rate Respiratory Rate Blood Pressure Pulse Oximetry 99 100 99 Oxygen Delivery 12/19/22 17:09 12/19/22 17:14 12/19/22 17:19 Temperature Pulse Rate Respiratory Rate Blood Pressure Pulse Oximetry 99 99 98 Oxygen Delivery 12/19/22 17:24 12/19/22 17:29 12/19/22 17:34 Temperature Pulse Rate Respiratory Rate Blood Pressure Pulse Oximetry 99 100 100 Oxygen Delivery 12/19/22 17:39 12/19/22 17:44 12/19/22 17:49 Temperature Pulse Rate Respiratory Rate Blood Pressure Pulse Oximetry 100 99 99 Oxygen Delivery 12/19/22 17:54 12/19/22 17:59 12/19/22 18:04 Temperature Pulse Rate Respiratory Rate Blood Pressure Pulse Oximetry 99 100 99 Oxygen Delivery 12/19/22 18:09 12/19/22 18:14 12/19/22 18:19 Temperature Pulse Rate Respiratory Rate Blood Pressure Pulse Oximetry 100 100 100 Oxygen Delivery 12/19/22 18:24 12/19/22 18:29 12/19/22 18:34 Temperature Pulse Rate Respiratory Rate Blood Pressure Pulse Oximetry 100 99 99 Oxygen Delivery 12/19/22 18:37 12/19/22 18:39 12/19/22 18:44 Temperature Pulse Rate 100 Respiratory Rate Blood Pressure 110/69 Pulse Oximetry 97 98 Oxygen Delivery 12/19/22 18:49 12/19/22 18:54 12/19/22 18:59 Temperature Pulse Rate Respiratory Rate Blood Pressure Pulse Oximetry 99 99 99 Oxygen Delivery 12/19/22 19:00 12/19/22 19:04 12/19/22 19:09 Temperature Pulse Rate 97 94 Respiratory Rate Blood Pressure 82/41 L 98/54 L Pulse Oximetry 98 100 Oxygen Delivery 12/19/22 19:14 12/19/22 19:19 12/19/22 19:24 Temperature Pulse Rate Respiratory Rate Blood Pressure Pulse Oximetry 100 100 100 Oxygen Delivery 12/19/22 19:29 12/19/22 19:34 12/19/22 19:39 Temperature Pulse Rate Respiratory Rate Blood Pressure Pulse Oximetry 100 100 100 Oxygen Delivery 12/19/22 19:44 12/19/22 19:49 12/19/22 19:54 Temperature Pulse Rate Respiratory Rate Blood Pressure Pulse Oximetry 100 100 99 Oxygen Delivery 12/19/22 19:59 12/19/22 20:00 12/19/22 20:04 Temperature Pulse Rate 96 Respiratory Rate Blood Pressure
--- NOTE | 2022-12-20 07:49 | PM.DS ---
DS: Admitting Diagnosis Discharge Date 12/20/22 Admitting Diagnosis ruptured ovarian cyst DS: Discharge Diagnosis Discharge Diagnosis (1) Ruptured ovarian cyst: Code(s): N83.209 - Unspecified ovarian cyst, unspecified side Status: Acute DS: Summary Hospital Course Reason for hospitalization: observation and pain control Hospital Course: The Patient admitted via transfer from [facility]. Patient with an apparent ruptured ovarian cyst with bleeding. Pain has improved significantly overnight. Vital signs remained stable and patient clinically is stable. Patient tolerating regular diet. Status at Discharge Functional status at discharge: independent ambulation Overall status at discharge: patient is progressing back to baseline Time Spent with Patient Time attestation: Total time spent providing and/or coordinating discharge services: DS: Data Data Completed and Pending Labs on day of discharge: Labs from last 24 hours 12/19/22 14:59 Hgb 12.0 Hct 36.1 L Discharge Plan Discharge Attending physician on discharge: Addy Ramon Discharging Clinician: Cherrie Montero Anticipated Discharge Date/Time: 12/20/22 07:51 Patient Disposition: Home, Self-Care Activity: pelvic rest and other - see discharge instructions Diet: as tolerated Discharge Instructions: OB ANTEPARTUM DISCHARGE INSTRUCTIONS This information is given to help you properly care for yourself at home after your discharge from the hospital. Follow these instructions until your doctor tells you otherwise. DIET: Eat Three Well Balanced Meals per Day Drink at Least Eight 8-Ounce Glasses of Caffeine-Free Beverages Daily ACTIVITY: As Tolerated . OTHER INSTRUCTIONS: Begin taking 325 mg of Iron (over the counter) daily. FOLLOW-UP CARE: Call Office and Make Appointment To see Dr. Vipin Garcia in one week Valuables released to patient or family? N/A Medications from home returned to patient? N/A I Acknowledge Receipt of and Understand the Above Instructions IF YOU HAVE ANY QUESTIONS REGARDING THESE INSTRUCTIONS, PLEASE CALL [phone]. IF PROBLEMS ARISE, CALL YOUR PROVIDER. IF EMERGENCY CARE IS NEEDED, [facility] IS AVAILABLE 24 HOURS A DAY. No heavy lifting or exercise Stand Alone Forms: General Discharge Information, Work/School Release IP Follow-up/Referrals: Addy Ramon MD [Physician] - Call for Appointment Discharge Medications: New hydrocodone-acetaminophen 5-325 mg tablet 1 tablet PO Q4H PRN (Reason: pain) Qty: 10 0RF Continued dexmethylphenidate [Focalin XR] 20 mg capsule,ER biphasic 50-50 20 mg PO BID amitriptyline 25 mg tablet 50 mg PO QHS 30 Days Qty: 60 11RF valacyclovir 500 mg tablet 500 mg PO DAILY lamotrigine 150 mg tablet 150 mg PO BID metronidazole 500 mg tablet 500 mg PO BID Rx Instructions: Take for 7 days- started 12/13/22 trazodone 150 mg tablet 150 mg PO HS aripiprazole 20 mg tablet 20 mg PO HS Humira(CF) Pen 40 mg/0.4 mL pen injector kit 40 mg SUBCUT Q14D ondansetron 4 mg tablet,disintegrating 4 mg PO Q8H PRN (Reason: Nausea And Vomiting) Date of admission: 12/19/22 13:37 Primary Care Provider: AbdiazizLois Admitting Provider: Cherrie Montero Attending physician on admission: Cherrie Montero Condition: Stable
[2022-12-20 08:46] LABS: Hematocrit 34.9 % (37.0-47.0); Hemoglobin 11.5 g/dL (12.0-15.0)
[2022-12-20] MEDS: lamoTRIgine 50 MG TABLET 150 MG PO (09:01)
[2022-12-20] MEDS: metroNIDAZOLE 250 MG TABLET 500 MG PO (09:01)
[2022-12-20] MEDS: valACYclovir HCL 500 MG TABLET PO (09:01)
--- NOTE | 2022-12-20 09:14 | PC.NURSE ---
MD notified of new H/H results. Verbal orders given for discharge.
== END 2022-12-20 09:32 | disposition home or self-care (01) ==
PROVIDERS: Admitting Provider Obstetrics & Gynecology Gynecology; PCP Internal Medicine; Visit Provider Obstetrics & Gynecology Gynecology
DX: N83.209 Unspecified ovarian cyst, unspecified side (principal); F41.9 Anxiety disorder, unspecified; F31.9 Bipolar disorder, unspecified; F13.21 Sedative, hypnotic or anxiolytic dependence, in remission; L40.9 Psoriasis, unspecified; F17.210 Nicotine dependence, cigarettes, uncomplicated; Z90.710 Acquired absence of both cervix and uterus; Z81.8 Family history of other mental and behavioral disorders; F10.90 Alcohol use, unspecified, uncomplicated; F12.90 Cannabis use, unspecified, uncomplicated; Z79.899 Other long term (current) drug therapy
CPT/HCPCS: 36415; 85014; 85018; 96361; 96365; 96366; A9270; G0378; G0379; J2270; J7120

== ENCOUNTER 2023-01-27 07:41 | Outpatient (CLI) | payer OTHER, SELFPAY | END 2023-01-27 07:42 | disposition home or self-care (01) | PROVIDERS: PCP Internal Medicine; Visit Provider Obstetrics & Gynecology | DX: R10.2 Pelvic and perineal pain (principal); Z01.818 Encounter for other preprocedural examination | CPT/HCPCS: 36415; 86850; 86900; 86901 ==

== ENCOUNTER 2023-01-29 00:26 | Day surgery (SDC) | payer OTHER, SELFPAY ==
--- NOTE | 2023-01-24 14:52 | PC.NURSE ---
Report to the Outpatient Waiting Room, entrance under the green pavilion located off [facility], at time _0600 on date __01/29/23 . Planned Procedure Time: _729 . Time changes happen often and if your time is changed the preop area will call you the afternoon before. - You and your visitor will be asked to self-screen and do not enter if you have any COVID symptoms. - A mask is optional within the hospital at this time. Patients may have clear liquids (water, carbonated beverages, clear teas, apple juice) until 3 hours prior to surgery with a maximum of 20 ounces. - No food from midnight until time of surgery - Infants may have breast milk until 4 hours before surgery, infant formula 6 hours prior to surgery. - Children will be allowed to drink immediately following surgery. If applicable, please bring a bottle or sippy cup to assist with drinking. Juice, water, soda, and popsicles are readily available. For infants on formula, please bring formula the day of surgery. Pacifiers are allowed. Take the following medications with a SIP of water the morning of surgery: ___NONE DO NOT STOP ANY OF YOUR OTHER PRESCRIPTION MEDICATIONS PRIOR TO SURGERY ?EXCEPT THE FOLLOWING Medications to discontinue per physician NONE Date to take last dose Please no make-up, nail danish, hairspray, perfume, deodorant, or body powder the day of surgery. No jewelry (including any body piercings) or valuables the day of surgery, leave them at home. Please take a shower or bath the night before, or the morning of, surgery with an antibacterial soap. Wear comfortable, loose fitting clothing. Children are encouraged to wear pajamas. - Jewelry must be removed prior to entering the operating room. Rings and piercings that are not removed may be cut off. - The hospital will not accept responsibility for valuables. - Please leave all valuables, including medications, at home the day of surgery. If you are going home after surgery, a licensed cattle driver must drive you home. - NO public transportation without another adult if you receive anesthesia. - We recommend that an adult stay with you for 24 hours following discharge. - We also recommend that you do not drive, make important decision, drink alcoholic beverages, or take any drugs that were not prescribed by your health care provider for at least 24 hours after your discharge time. For Pediatric surgeries, we recommend two adults accompany the child home. Follow any additional instructions given to you from your surgeon. If you or anyone in your household have experienced Covid symptoms in the past week, please notify your surgeon or the nurse liaison at the phone number below for possible testing. Telephone instructions given to __PATIENT and asked if any additional questions and then verbalized understanding. Patient advised to call surgeon office or pre surgery nurse liaison [phone] if any additional questions.
[2023-01-24 15:01] VITALS: BMI 20.7
--- NOTE | 2023-01-28 07:05 | PM.IMHP ---
H&P: HPI History of Present Illness Date/Time: 01/28/23 07:05 Chief Complaint: pelvic pain Narrative: 37-year-old female with chronic pelvic pain dyspareunia admitted for diagnostic laparoscopy risks and benefits [facility] Past Medical History Medical History ADD (attention deficit disorder) good control with current medication Anxiety good control with current medication Bipolar disorder good control with current medication Drug addiction in remission patient reports addiction to Xanax clean for 2 years (normal spontaneous vaginal delivery) x2 Psoriasis Tobacco abuse smokes 1/2 pack per day plus vaping Surgical History Surgical History H/O laparoscopy at least x4 per patient report history of removal of cysts and endometriosis Hidradenitis R groin hidradenitis excised on 02/22/22 History of hysterectomy per patient total vaginal hysterectomy for fibroids approximately4+ years ago History of tonsillectomy Family History Family History Mother Family history of diabetes mellitus in first degree relative Diabetes mellitus Depression Grandparent Family history of malignant neoplasm of bone Father Alcoholism Depression Sibling Depression Social History Social History Smoking packs per day: 0.5 Smoking cigarettes per day: 10.0 Years smoked: 22 Smoking pack-years: 11.00 Smoking status: Current every day smoker Tobacco type: cigarettes and e-cigarettes/vaping Second hand tobacco smoke exposure: Yes Additional smoking assessment comments: CURRENTLY SMOKES 5-6 CIGARETTES PER DAY Alcohol intake: current Alcohol use details: 2 DRINKS PER MONTH Substance use: current Substance use type: marijuana Other substance usage details: THC gummies from dispensary for sleep; 1 alcohol drink/month Last use: THC last use 12/18/22 pm Lack of Transportation: No Lack of Food: Never True Current Housing: I Have Housing Concerned About Future Housing: No Difficulty Paying Gas/Electric Bills: No Difficulty Paying for Meds: No Currently Unemployed: No Education: High School Diploma/GED Difficulty w/ Childcare or Family Care: No Living arrangements: with family Additional living arrangements comments: boyfriend and children Gender identity (if verbalized by the patient): Female Spiritual care concerns: No Meds Home Medications and Allergies Home Medications Medication Instructions Recorded Confirmed Type valacyclovir 500 mg tablet 500 mg PO HS 01/25/22 01/24/23 History dexmethylphenidate 20 mg 20 mg PO BID 08/15/22 01/24/23 History capsule,extended release [id number] (Focalin XR) adalimumab 40 mg/0.4 mL 40 mg subcut Q14D 12/19/22 01/24/23 History subcutaneous pen kit (Humira(CF) Pen) aripiprazole 20 mg tablet 20 mg PO HS 12/19/22 01/24/23 History lamotrigine 150 mg tablet 150 mg PO HS 12/19/22 01/24/23 History metronidazole 500 mg tablet 500 mg PO PRN PRN UTI 12/19/22 01/24/23 History ondansetron 4 mg disintegrating 4 mg PO Q8H PRN Nausea And Vomiting 12/19/22 01/24/23 History tablet trazodone 150 mg tablet 150 mg PO HS 12/19/22 01/24/23 History amitriptyline 25 mg tablet 50 mg PO QHS N/V 01/24/23 01/24/23 History Allergies Allergy/AdvReac Type Severity Reaction Status Date / Time sulfamethoxazole Allergy Severe Itching Verified 01/24/23 14:39 [From Bactrim] trimethoprim [From Bactrim] Allergy Severe Itching Verified 01/24/23 14:39 divalproex sodium Allergy Unknown HX OF Verified 01/24/23 14:40 [From Depakote] OVARIAN CYST Exam Const: General: cooperative, healthy appearing and comfortable Nutritional Appearance: average body habitus Orientation/consciousness: oriented to person, o
[2023-01-29] VITALS (8 sets, daily range): BP systolic 94–111; BP diastolic 53–71; PULSE 69–105; RESP 12–20; TEMP 36.3–36.7; O2SAT 96–100
[2023-01-29] MEDS: LACTATED RINGERS 1,000 ML 30 ML IV CONT ×2 (06:30→08:47)
--- NOTE | 2023-01-29 06:37 | WPDHPUPDATE1 ---
History and Physical Update Update Date/Time: 01/29/23 06:37 History and Physical has been reviewed, including an updated exam of the patient. There are NO changes in the patient's condition. Risks, benefits, and alternatives have been discussed and questions answered. Patient agrees to proceed with procedure.
[2023-01-29] MEDS: MIDAZOLAM HCL (*CRX) 2 MG/2 ML VIAL IV PUSH (06:45)
[2023-01-29] MEDS: SCOPOLAMINE 1.5 MG PATCH TRANSDERM (06:45)
[2023-01-29] MEDS: KETOROLAC 15 MG/ML VIAL (*BKC) IV PUSH (06:45)
[2023-01-29] MEDS: ACETAMINOPHEN 500 MG TABLET 1000 MG PO (06:45)
--- NOTE | 2023-01-29 06:46 | WPDANESEPPF ---
Anes - Initial Pre Proc Eval Procedure: Operation Date: 01/29/23 07:30 Proposed Procedures p Diagnostic Laparoscopy - Addy Garcia MD Date/Time: 01/29/23 06:46 Surgeon: Addy Garcia MD Pre Op Diagnosis: pelvic pain, dyspurenia Patient Data Age: 37 Gender: F Height: 1.65 m Weight: 56.7 kg Allergies Allergy/AdvReac Type Severity Reaction Status Date / Time sulfamethoxazole Allergy Severe Itching Verified 01/24/23 14:39 [From Bactrim] trimethoprim [From Bactrim] Allergy Severe Itching Verified 01/24/23 14:39 divalproex sodium Allergy Unknown HX OF Verified 01/24/23 14:40 [From Depakote] OVARIAN CYST Home Medications Medication Instructions Recorded Confirmed Type valacyclovir 500 mg tablet 500 mg PO HS 01/25/22 01/24/23 History dexmethylphenidate 20 mg 20 mg PO BID 08/15/22 01/24/23 History capsule,extended release [id number] (Focalin XR) adalimumab 40 mg/0.4 mL 40 mg subcut Q14D 12/19/22 01/24/23 History subcutaneous pen kit (Humira(CF) Pen) aripiprazole 20 mg tablet 20 mg PO HS 12/19/22 01/24/23 History lamotrigine 150 mg tablet 150 mg PO HS 12/19/22 01/24/23 History metronidazole 500 mg tablet 500 mg PO PRN PRN UTI 12/19/22 01/24/23 History ondansetron 4 mg disintegrating 4 mg PO Q8H PRN Nausea And Vomiting 12/19/22 01/24/23 History tablet trazodone 150 mg tablet 150 mg PO HS 12/19/22 01/24/23 History amitriptyline 25 mg tablet 50 mg PO QHS N/V 01/24/23 01/24/23 History hydrocodone 5 mg-acetaminophen 325 1 tablet PO Q4H PRN pain #20 tabs 01/29/23 Rx mg tablet Patient hx anesthesia problems: none Family hx anesthesia problems: none Results Review: All pre-operative results and documents have been reviewed as part of the pre-operative evaluation. [facility] Past Medical History Medical History ADD (attention deficit disorder) good control with current medication Anxiety good control with current medication Bipolar disorder good control with current medication Drug addiction in remission patient reports addiction to Xanax clean for 2 years (normal spontaneous vaginal delivery) x2 Psoriasis Tobacco abuse smokes 1/2 pack per day plus vaping Surgical History Surgical History H/O laparoscopy at least x4 per patient report history of removal of cysts and endometriosis Hidradenitis R groin hidradenitis excised on 02/22/22 History of hysterectomy per patient total vaginal hysterectomy for fibroids approximately4+ years ago History of tonsillectomy Family History Family History Mother Family history of diabetes mellitus in first degree relative Diabetes mellitus Depression Grandparent Family history of malignant neoplasm of bone Father Alcoholism Depression Sibling Depression Social History Social History Smoking packs per day: 0.5 Smoking cigarettes per day: 10.0 Years smoked: 22 Smoking pack-years: 11.00 Smoking status: Current every day smoker Tobacco type: cigarettes and e-cigarettes/vaping Second hand tobacco smoke exposure: Yes Additional smoking assessment comments: CURRENTLY SMOKES 5-6 CIGARETTES PER DAY Alcohol intake: current Alcohol use details: 2 DRINKS PER MONTH Substance use: current Substance use type: marijuana Other substance usage details: THC gummies from dispensary for sleep; 1 alcohol drink/month Last use: THC last use 12/18/22 pm Lack of Transportation: No Lack of Food: Never True Current Housing: I Have Housing Concerned About Future Housing: No Difficulty Paying Gas/Electric Bills: No Difficulty Paying for Meds: No Currently Unemployed: No Education: High School Diploma/GED Difficulty w/ Childcare or Family Care: No L
--- NOTE | 2023-01-29 07:54 | W.PM.PROC2 ---
Procedure Note - Detailed Date of Procedure 01/29/23 Pre-op Diagnosis pelvic pain, dyspurenia Post-op Diagnosis Other (Pelvic pain/dyspareunia/endometriosis/bilateral ovarian cysts) Procedure Performed Laparoscopic destruction bilateral ovarian cysts. Destruction of endometriosis Surgeon Addy Garcia MD Anesthesia General Indications This is a 37-year-old female post hysterectomy and salpingectomy with pelvic pain Findings Absent uterus tubes. Bilateral simple cysts small uterosacral. 10cc of serosanguineous fluid was seen cul-de-sac. Description of Procedure Patient was prepped and draped in the normal sterile fashion placed in dorsal lithotomy position. Under excellent general trach anesthesia weighted speculum placed in posterior fornix. Sponge stick was placed in. Bladder was emptied of clear urine weighted speculum was. Gloves were changed. A supraumbilical incision made the Veress needle passed. Abdomen filled with CO2 gas [id number]. The 5mm trocar advanced under direct visualization assuring no injury. Patient placed in Trendelenburg and a suprapubic incision made. 5mm trocar advanced in the suprapubic area under direct visualization assuring no injury. The 10cc of serosanguineous fluid this cul-de-sac was suction removed. Small areas of endometriosis were seen. The uterus was surgically absent there was basically no scar tissue seen whatsoever. Bilateral ovarian cysts were seen and these were cauterized 35 w per 2nd. The small areas of endometriosis along the uterosacral ligaments were cauterized at 35 w per 2nd as well. The appendix appeared and gallbladder and liver appeared within normal limits photo documentation undertaken. Lower site was removed. The gas removed upper site removed the incisions closed with 4 Monocryl glue. Sponge stick from the vagina the patient was awakened went to recovery in satisfactory condition. All sponge, needle instruments were correct. There were no immediate complications Estimated Blood Loss 5 Drains No Packing No Pathology None sent Complications No immediate complications Condition Stable Disposition PACU
[2023-01-29] MEDS: fentaNYL CITRATE INJ (*CRX) 100 MCG/2 ML VIAL 25 MCG IV PUSH ×8 (08:11→08:57)
[2023-01-29] MEDS: oxyCODONE HCL (*CRX) 5 MG TAB IR PO (09:22)
== END 2023-01-29 10:05 | disposition home or self-care (01) ==
PROVIDERS: PCP Internal Medicine; Visit Provider Obstetrics & Gynecology
PROC: (CPT 49320; principal; 2023-01-29 07:30)
DX: N83.202 Unspecified ovarian cyst, left side (principal); N83.201 Unspecified ovarian cyst, right side; N80.3C3 Endometriosis of bilateral uterosacral ligament(s), unspecified depth; R10.2 Pelvic and perineal pain; N94.10 Unspecified dyspareunia; F98.8 Other specified behavioral and emotional disorders with onset usually occurring in childhood and adolescence; F31.9 Bipolar disorder, unspecified; L40.9 Psoriasis, unspecified; F13.21 Sedative, hypnotic or anxiolytic dependence, in remission; F41.9 Anxiety disorder, unspecified; Z79.620 Long term (current) use of immunosuppressive biologic; F12.90 Cannabis use, unspecified, uncomplicated; F17.210 Nicotine dependence, cigarettes, uncomplicated
CPT/HCPCS: 58662; A9270; J1100; J1885; J2250; J2405; J2704; J3010; J7030; J7120

== ENCOUNTER 2024-11-26 15:50 | Outpatient (CLI) | payer OTHER, SELFPAY ==
--- NOTE | ~2024-11-26 | MR_ITS ---
MRI of the lumbar spine Clinical History: Loss of bowel control Technique: Axial T2-weighted images, and sagittal T1-weighted, T2-weighted, and T2 fat-sat images wer e acquired. Findings: There is no fracture or subluxation of the lumbar spine. Vertebral bodies maintain normal h eight and line. No suspicious bone marrow signal abnormality seen. There is no significant disc bulge or herniation and lumbar level. There is mild to moderate scattere d facet joint degenerative changes. No spinal canal stenosis or neural foraminal narrowing at any lum bar level. Paravertebral soft tissues are unremarkable. Impression: Minimal degenerative change overall, as above. Reviewed, dictated and finalized at location M. Impression: Minimal degenerative change overall, as above.
== END 2024-11-26 15:51 | disposition home or self-care (01) ==
LOC: GOSHIMG 15:51
PROVIDERS: PCP Nurse Practitioner Psychiatric/Mental Health
DX: M47.896 Other spondylosis, lumbar region (principal); R15.9 Full incontinence of feces
CPT/HCPCS: 72148

== ENCOUNTER 2025-03-01 12:35 | Outpatient (CLI) | payer OTHER, SELFPAY ==
--- NOTE | ~2025-03-01 | MM_ITS ---
EXAMINATION: MM screening jhonathan BI w lucrecia HISTORY: Screening TECHNIQUE: Craniocaudal and mediolateral oblique 3-D tomosynthesis images were obtained and synthetic 2-D images were generated. CAD analysis was submitted and interpreted. COMPARISON: 12/13/2020 BREAST PARENCHYMAL COMPOSITION: Dense: The breasts are extremely dense, which lowers the sensitivity of mammography. FINDINGS: There is no evidence of suspicious mass, calcification, or architectural distortion to suggest malignancy in either breast. There has been no suspicious interval change. IMPRESSION: 1. No mammographic evidence of malignancy. 2. Recommend routine screening mammography in one year. BI-RADS Category 1: Negative Reviewed, dictated and finalized at location B.
--- OUTSIDE RECORDS SUMMARY | 2025-03-01 12:42 | XMS_ITS | Clinical Summary ---
Author Organization [facility] Address [address] [place] [address] Phone Care Team Providers Care Chain Splitter Name Role Phone Unavailable Primary Care Provider Unavailabl e Social History Tobacco Use Types Packs/Day Years Used Date Smoking Tobacco: Never Assessed Comments Unknown Sex and Gender Information Value Date Recorded Sex Assigned at Not on file Legal Sex Female 5:01 PM CDT Gender Identity Not on file Sexual Orientation Not on file Plan of Treatment Health Maintenance Due Date Last Done Comments DTAP/TDAP/TD VACCINES (1 - Tdap) 12/13/2003 HEPATITIS B VACCINES (1 of 3 - 19+ 3-dose series) 11/30 HPV/Cotest (21-29) 2005 HPV VACCINES (1 - 3-dose SCDM series) 12/13/2011 CERVICAL CANCER SCREENING 2014 HPV/Cotest (30-65) 2014 PAP SMEAR 2014 BREAST CANCER SCREENING 2024 INFLUENZA VACCINE (#1) 2024
--- OUTSIDE RECORDS SUMMARY | 2025-03-01 12:42 | XMS_ITS | Patient Health Record ---
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 Role Phone Marie Main Primary Care Provider Unavaila Karmen Mckeon Unavailable [phone] Gopal Hager Unavailable [phone] Allergies Allergen (clinical drug ingredient) Drug/Non Drug Allergy documented on EMR Reaction Allergy Type Onset Date Status sulfamethoxazole / trimethoprim Bactrim Unknown Drug Allergy Active valproate Depakote Unknown Drug Allergy Active Results Component Value Reference Range Notes UDT Reviewed date:07/06/2024 12:50:55 PM Interpretation: Performing Lab: Notes/Report: THC Neg 0 - 50 ng/ml Cocaine Neg 0 - 300 ng/ml Amphetamine Neg 0 - 1000 ng/ml Buprenorphine (BUP) Neg 0 - 10 ng/ml Secobarbital (Bar) Neg 0 - 300 ng/ml Oxazepam (BZO) Neg 0 - 300 ng/ml 3-agqpppeziq-8,8-kwthgjyf-4,3-diphenylpyrrolidine (VALDEZ P) Neg 0 - 300 ng/ml Methamphetamine (MET) Neg 0 - 1000 ng/ml Methylenedioxymethamphetamine (MDMA) Neg 0 - 500 ng/ml Morphine (MOP 300/[id number]) Neg 0 - 300 ng/ml Methadone (MTD) Neg 0 - 300 ng/ml Phencyclidine (PCP) Neg 0 - 25 ng/ml Nortriptyline (TCA) Neg 0 - 1000 ng/ml Oxycodone Neg 0 - 300 ng/ml x Neg 0 - 300 ng/ml Reason For Referral No Information Medications Medication SIG (Take, Route, Frequency, Duration) Notes Start Date End Date Status Sertraline HCl 100 MG Tablet 1 tablet Oral Once a day; Duration: 90 days 01/25/2025 Active Cyproheptadine HCl 4 MG Tablet 2 tablet Oral once nightly; Duration: 90 days Active Fanapt 4 MG Tablet 1 tablet Oral Twice a day; Duration: 90 days 01/11/2025 Active Estradiol 0.5 MG Tablet 1 tablet Orally Once a day; Duration: 30 day(s) 02/18/2025 Active Methylphenidate HCl 10 MG Tablet 2 tablets in the morning and one tablet in the afternoons as needed Orally once a day; Duration: 30 days 02/22/2025 Active lamoTRIgine 150 MG Tablet 1 tablet at bedtime Oral Once a day; Duration: 90 days Please fill on 03/0101/25/2025 Active LORazepam 0.5 MG Tablet 1 tablet Orally Once a day; Duration: 4 days As needed following EMDR sessions 01/13/2025 Active Sertraline HCl 100 MG Tablet TAKE 1 TABLET BY MOUTH EVERY DAY FOR 90 DAYS; Duration: 90 Active cloNIDine HCl 0.1 MG Tablet 1 tablet Orally Once a day; Duration: 90 days As needed 02/22/2025 Active busPIRone HCl 7.5 MG Tablet 1 tablet Orally 3 times a day; Duration: 30 days 01/25/2025 03/06/2025 Active Sertraline HCl 25 MG Tablet TAKE 1 TABLET BY MOUTH EVERY DAY FOR TOTAL DAILY DOSE OF 125MG; Duration: 90 Active LORazepam 0.5 MG Tablet 1 tablet Oral twice a day; Duration: 30 days 11/09/2024 Active Ondansetron HCl 8 MG Tablet 1 tablet as needed Orally Once a day; Duration: 90 days 12/21/2024 Active Social History Tobacco Use: Social History Observation Description Date Details (start date - stop date) Current Smoker NA - NA Sex Assigned At : Social History Observation Description Sex Assigned At Female Social History Miscellaneous: Social Info Question Answer Notes Safety issues: Are there any firearms in the house? No Social History Social Info Question Answer Notes Household: Marital Status: Number of Adults in household: 2 Number of Children in Household: 2 Level of Education: Finished High School Tobacco Use: Social Info Question Answer Notes Tobacco Control (Standard) Tobacco use: Current smoker How often do you smoke cigarettes? Every day How many cigarettes a day do you smoke? 6-10 Problems Problem Type SNOMED Code ICD Code Onset Dates Problem Status W/U Status Risk Notes Problem Generalized anxiety disorder (32803970) Generalized anxiety disorder (F41.1) Active confirmed Problem Bipolar 2 disorder (20776741) Bipolar 2 disorder (F31.81) Active confirmed Problem Attention deficit hyperactivity disorder (887960039) ADHD (attention deficit hyperactivity disorder), combined type (F90.2) Active confirmed Problem Chronic insomnia (551024274) Chronic insomnia (F51.04) Active confirmed Problem Posttraumatic stress disorder (45115036) Chronic post-traumatic stress disorder (PTSD) (F43.12) Active confirmed Problem Mood disorder (77103111) Mood disorder (F39) Active confirmed Vital Signs Heart Rate 144 /min 11/09/2024 Height-cm 165.1 cm 11/09/2024 Blood pressure diastolic 89 mm Hg 11/09/2024 Weight-kg 57.61 kg 11/09/2024 Height 65 in 11/09/2024 Blood pressure systolic 127 mm Hg 11/09/2024 Weight 127 lbs 11/09/2024 BMI 21.13 kg/m2 11/09/2024 Procedures Procedure Date Ordered Date Performed Result Body Sit e ADHD Testing 07/06/2024 N/A Encounters Encounter Location Date Provider Diagnosis [facility] [address] [facility] [address] [place] [address] 07/06/2024 Karmen Chang Generalized anxiety disorder F41.1 ; Mood disorder F39 ; ADHD (attention deficit hyperactivity disorder), combined type F90.2 ; Chronic post-traumatic stress disorder (PTSD) F43.12 and Chronic insomnia F51.04 [facility] [address] [address] 07/08/2024 Gopal Hager Lack of concentratio n R41.840 and ADHD (attention deficit hyperactivity disorder), combined type F90.2 [facility] [address] [facility] [address] [place] [address] 08/02/2024 Karmenlarry Chang Generalized anxiety disorder F41.1 ; Bipolar 2 disorder F31.81 ; ADHD (attention deficit hyperactivity disorder), combined type F90.2 ; Chronic post-traumatic stress disorder (PTSD) F43.12 and Chronic insomnia F51.04 [facility] [place] [id number] [address] [place] [address] 08/26/2024 Karmenlarry Chang Generalized anxiety disorder F41.1 ; Bipolar 2 disorder F31.81 ; ADHD (attention deficit hyperactivity disorder), combined type F90.2 ; Chronic post-traumatic stress disorder (PTSD) F43.12 ; Chronic insomnia F51.04 ; Encounter for screening for cardiovascular disorders Z13.6 and Encounter for screening for depression Z13.[address] [facility] [address] [place] [address] 11/09/2024 Karmen Kurjose Generalized anxiety disorder F41.1 ; Bipolar 2 disorder F31.81 ; ADHD (attention deficit hyperactivity disorder), combined type F90.2 ; Chronic post-traumatic stress disorder (PTSD) F43.12 ; Chronic insomnia F51.04 ; Encounter for screening for cardiovascular disorders Z13.6 ; Encounter for screening for depression Z13.31 and Nicotine use Z72.0 [facility] [facility] [address] [place] [address] 12/24/2024 Karmen Chang Generalized anxiety disorder F41.1 ; Bipolar 2 disorder F31.81 ; ADHD (attention deficit hyperactivity disorder), combined type F90.2 ; Chronic post-traumatic stress disorder (PTSD) F43.12 ; Chronic insomnia F51.04 ; Encounter for screening for cardiovascular disorders Z13.6 ; Encounter for screening for depression Z13.31 and Nicotine use Z72.0 [facility] [facility] [address] [place] [address] 01/25/2025 Karmen Chang Generalized anxiety disorder F41.1 ; Bipolar 2 disorder F31.81 ; ADHD (attention deficit hyperactivity disorder), combined type F90.2 ; Chronic post-traumatic stress disorder (PTSD) F43.12 ; Chronic insomnia F51.04 and Nicotine use Z72.0 [facility] [facility] [address] [place] [address] 08/03/2024 Karmen Chang [facility], [address] [facility] [address] [place] [address] 08/04/2024 Karmen Chang [facility], [address] [facility] [address] [place] [address] 08/05/2024 Karmen Chang [facility], [address] [facility] [address] [place] [address] 10/20/2024 Karmen Kurilla ADHD (attention defi cit hyperactivity disorder), combined type F90.2 [facility], [facility] [address] [place] [address] 07/12/2024 Karmen Kurilla ADHD (attention defi cit hyperactivity disorder), combined type F90.2 [facility], [facility] [address] [place] [address] 07/21/2024 Karmen Kurilla [facility], [facility] [address] [place] [address] 07/21/2024 Karmen Kurilla [facility], [facility] [address] [place] [address] 08/04/2024 Karmen Kurilla [facility], [facility] [address] [place] [address] 08/09/2024 Karmen Kurilla [facility], [facility] [address] [place] [address] 08/10/2024 Karmen Kurilla ADHD (attention defi cit hyperactivity disorder), combined type F90.2 [facility], [facility] [address] [place] [address] 08/16/2024 Karmen Kurilla Bipolar 2 disorder F31.81 [facility], [facility] [address] [place] [address] 08/26/2024 Karmen Kurilla ADHD (attention defi cit hyperactivity disorder), combined type F90.2 [facility], [facility] [address] [place] [address] 08/30/2024 Karmen Kurilla [facility], [facility] [address] [place] [address] 08/30/2024 Karmen Kurilla [facility], [facility] [address] [place] [address] 08/31/2024 Karmen Kurilla [facility], [facility] [address] [place] [address] 08/31/2024 Karmen Kurilla ADHD (attention defi cit hyperactivity disorder), combined type F90.2 [facility], [facility] [address] [place] [address] 09/05/2024 Karmen Kurilla ADHD (attention defi cit hyperactivity disorder), combined type F90.2 [facility], [facility] [address] [place] [address] 09/21/2024 Karmen Chang Bipolar 2 disorder F31.81 [facility], [facility] [address] [place] [address] 09/26/2024 Karmen Chang ADHD (attention defi cit hyperactivity disorder), combined type F90.2 [facility], [facility] [address] [place] [address] 10/03/2024 Karmen Chang [facility], [facility] [address] [place] [address] 10/04/2024 Karmen Chang [facility], [facility] [address] [place] [address] 10/04/2024 Karmen Chang [facility], [facility] [address] [place] [address] 10/19/2024 Karmen Chang ADHD (attention defi cit hyperactivity disorder), combined type F90.2 [facility], [facility] [address] [place] [address] 10/20/2024 Karmen Chang [facility], [facility] [address] [place] [address] 10/20/2024 Karmen Chang [facility], [facility] [address] [place] [address] 11/01/2024 Karmen Chang [facility], [facility] [address] [place] [address] 11/04/2024 Karmen Chang [facility], [facility] [address] [place] [address] 12/15/2024 Karmen Chang [facility], [facility] [address] [place] [address] 12/20/2024 Karmen Chang [facility], [facility] [address] [place] [address] 12/21/2024 Karmen Chang [facility], [facility] [address] [place] [address] 12/28/2024 Karmen Chang [facility], [facility] [address] [place] [address] 12/29/2024 Karmen Chang [facility], [facility] [address] [place] [address] 01/03/2025 Karmen Chang [facility], [facility] [address] [place] [address] 01/03/2025 Karmen Chang [facility], [facility] [address] [place] [address] 01/03/2025 Karmen Chang [facility], [facility] [address] [place] [address] 01/06/2025 Karmen Chang Chronic post-traumat ic stress disorder (PTSD) F43.12 ; Bipolar 2 disorder F31.81 and Generalized anxiety disorder F41.1 [facility], [facility] [address] [place] [address] 01/06/2025 Karmen Chang [facility], [facility] [address] [place] [address] 01/06/2025 Karmen Chang [facility], [facility] [address] [place] [address] 01/06/2025 Karmen Chang [facility], [facility] [address] [place] [address] 01/07/2025 Karmen Chang [facility], [facility] [address] [place] [address] 01/07/2025 Karmen Chang [facility], [facility] [address] [place] [address] 01/11/2025 Karmen Chang [facility], [facility] [address] [place] [address] 01/11/2025 Karmen Chang [facility], [facility] [address] [place] [address] 01/11/2025 Karmen Chang Bipolar 2 disorder F31.81 [facility], [facility] [address] [place] [address] 01/12/2025 Karmen Chang [facility], [facility] [address] [place] [address] 01/12/2025 Karmen Chang [facility], [facility] [address] [place] [address] 01/12/2025 Karmen Chang [facility], [facility] [address] [place] [address] 01/12/2025 Karmen Chang [facility], [facility] [address] [place] [address] 01/13/2025 Karmen Chang [facility], [facility] [address] [place] [address] 01/13/2025 Karmen Chang [facility], [facility] [address] [place] [address] 01/13/2025 Karmen Chang [facility], [facility] [address] [place] [address] 01/13/2025 Karmen Chang [facility], [facility] [address] [place] [address] 01/13/2025 Karmen Chang [facility], [facility] [address] [place] [address] 01/17/2025 Karmen Chang [facility], [facility] [address] [place] [address] 01/17/2025 Karmen Chang [facility], [facility] [address] [place] [address] 01/17/2025 Karmen Chang [facility], [facility] [address] [place] [address] 01/18/2025 Karmen Chang [facility], [facility] [address] [place] [address] 01/19/2025 Karmen Chang [facility], [facility] [address] [place] [address] 01/19/2025 Karmen Chang [facility], [facility] [address] [place] [address] 02/04/2025 Karmen Chang Bipolar 2 disorder F31.81 [facility], [facility] [address] [place] [address] 02/04/2025 Karmen Chang [facility], [facility] [address] [place] [address] 02/04/2025 Karmen Chang [facility], [facility] [address] [place] [address] 02/04/2025 Karmen Kurilla [facility], [facility] [address] [place] [address] 02/04/2025 Karmen Kurilla [facility], [facility] [address] [place] [address] 02/04/2025 Karmenlarry Acostailla [facility], [facility] [address] [place] [address] 02/04/2025 Karmen Kurilla [facility], [facility] [address] [place] [address] 02/04/2025 Karmen Kurilla [facility], [facility] [address] [place] [address] 02/04/2025 Karmen Kurilla Generalized anxiety disorder F41.1 [facility], [facility] [address] [place] [address] 02/04/2025 Karmenlarry Chang [facility], [facility] [address] [place] [address] 02/04/2025 Karmen Kurilla [facility], [facility] [address] [place] [address] 02/04/2025 Karmen Kurilla [facility], [facility] [address] [place] [address] 02/04/2025 Karmenlarry Acostailla [facility], [facility] [address] [place] [address] 02/04/2025 Karmen Kurilla [facility], [facility] [address] [place] [address] 02/04/2025 Karmen Kurilla [facility], [facility] [address] [place] [address] 02/04/2025 Karmen Kurilla [facility], [facility] [address] [place] [address] 02/07/2025 Karmenlarry Chang [facility], [facility] [address] [place] [address] 02/08/2025 Karmenlarry Chang Bipolar 2 disorder F31.81 [facility], [facility] [address] [place] [address] 02/13/2025 Karmen Kurilla Generalized anxiety disorder F41.1 [place] [address] [facility] [address] [place] [address] 02/15/2025 Karmenlarry Chang [facility] [address] [facility] [address] [place] [address] 02/18/2025 Karmen Chang [place] [address] [facility] [address] [place] [address] 02/22/2025 Karmen Chang ADHD (attention defi cit hyperactivity disorder), combined type F90.2 [place] [address] [facility] [address] [place] [address] 02/22/2025 Karmen Chang Bipolar 2 disorder F31.[address] [facility] [address] [place] [address] 02/23/2025 Karmen Chang [place] [address] [facility] [address] [facility] [address] [place] [address] 02/25/2025 Karmenlarry Chang Bipolar 2 disorder F31.[address] [facility] [address] [place] [address] 02/25/2025 Karmenlarry Chang [place] [address] [facility] [address] [place] [address] 02/28/2025 Karmen Chang Assessments Encounter Date Diagnosis (ICD Code) Assessment Notes Treatment Notes Treatment Clinical Notes Section Notes 07/06/2024 Generalized anxiety disorder (ICD-10 - F41.1) 07/06/2024 Mood disorder (ICD-10 - F39) R/O bipolar disorder. MDQ positive today, however several symptoms overlapping with coinciding ADHD symptoms. 07/08/2024 Lack of concentration (ICD-10 - R41.840) Based on the provided cognitive assessment data, the individual (38 years old) exhibits the following engel findings: Cognitive Markers: Three cognitive markers were outside the typical range. Planning: Score of 11, which is within the typical range. Spatial Working Memory: Below the expected level (score of 4.25, typical range > 4.6), suggesting potential working memory difficulties. Reaction Time & Impulsivity: Reaction Time: 4305ms, significantly slower than the expected range, indicating possible cognitive processing delays. Impulsivity: Markers present for response inhibition deficits, meaning difficulty in controlling immediate reactions and delaying responses when needed. Slowing After Errors: 24ms, which suggests a minor adjustment post-error, potentially indicating difficulties in learning from mistakes. ASRS (Adult ADHD Self-Report Scale): Part A: Score of 6 (above threshold of 4), suggesting behaviors predictive of ADHD. Part B: Score of 12, supporting the presence of ADHD-related symptoms. Interpretation Attention & Executive Functioning: Slower reaction time and difficulty with response inhibition suggest challenges in cognitive flexibility and executive control. Impulsivity & Self-Regulation: Presence of impulsivity markers and response inhibition deficits could lead to difficulties in maintaining attention, waiting turns, or inhibiting responses in structured settings. Working Memory Issues: The below-average spatial working memory score may indicate struggles with holding and manipulating information in the mind, affecting task organization and follow-through. Recommendations Further clinical evaluation may be beneficial to confirm an ADHD diagnosis and explore potential interventions. Strategies to improve executive functioning, such as cognitive-behavi oral therapy (CBT), mindfulness, and structured task management, may help mitigate difficulties. If work performance is impacted, accommodations such as task breakdowns, reminders, and structured work environments may be beneficial. Monitoring cognitive function over time is recommended to track any progression or improvement in symptoms. 07/12/2024 ADHD (attention deficit hyperactivity disorder), combined type (ICD-10 - F90.2) 08/02/2024 Generalized anxiety disorder (ICD-10 - F41.1) 08/02/2024 Bipolar 2 disorder (ICD-10 - F31.81) [facility] 08/10/2024 ADHD (attention deficit hyperactivity disorder), combined type (ICD-10 - F90.2) 08/16/2024 Bipolar 2 disorder (ICD-10 - F31.81) 08/26/2024 Generalized anxiety disorder (ICD-10 - F41.1) 08/26/2024 ADHD (attention deficit hyperactivity disorder), combined type (ICD-10 - F90.2) 08/31/2024 ADHD (attention deficit hyperactivity disorder), combined type (ICD-10 - F90.2) 09/05/2024 ADHD (attention deficit hyperactivity disorder), combined type (ICD-10 - F90.2) 09/26/2024 ADHD (attention deficit hyperactivity disorder), combined type (ICD-10 - F90.2) 10/19/2024 ADHD (attention deficit hyperactivity disorder), combined type (ICD-10 - F90.2) 10/20/2024 ADHD (attention deficit hyperactivity disorder), combined type (ICD-10 - F90.2) 11/09/2024 Generalized anxiety disorder (ICD-10 - F41.1) 12/24/2024 Generalized anxiety disorder (ICD-10 - F41.1) 01/25/2025 Generalized anxiety disorder (ICD-10 - F41.1) 01/06/2025 Chronic post-traumatic stress disorder (PTSD) (ICD-10 - F43.12) 02/04/2025 Bipolar 2 disorder (ICD-10 - F31.81) 02/04/2025 Generalized anxiety disorder (ICD-10 - F41.1) 02/08/2025 Bipolar 2 disorder (ICD-10 - F31.81) 02/13/2025 Generalized anxiety disorder (ICD-10 - F41.1) 02/22/2025 ADHD (attention deficit hyperactivity disorder), combined type (ICD-10 - F90.2) 02/22/2025 Bipolar 2 disorder (ICD-10 - F31.81) 02/25/2025 Bipolar 2 disorder (ICD-10 - F31.81) 01/11/2025 Bipolar 2 disorder (ICD-10 - F31.81) Electronic Prior Authorization was requested for Fanapt 1 MG Tablet. Provider can order medication once approval received. 01/25/2025 Bipolar 2 disorder (ICD-10 - F31.81) 01/06/2025 Bipolar 2 disorder (ICD-10 - F31.81) 12/24/2024 Bipolar 2 disorder (ICD-10 - F31.81) 11/09/2024 Bipolar 2 disorder (ICD-10 - F31.81) [facility] 09/21/2024 Bipolar 2 disorder (ICD-10 - F31.81) Electronic Prior Authorization was requested for Caplyta 21 MG Capsule. Provider can order medication once approval received. 08/26/2024 Bipolar 2 disorder (ICD-10 - F31.81) [facility] 08/02/2024 ADHD (attention deficit hyperactivity disorder), combined type (ICD-10 - F90.2) 07/08/2024 ADHD (attention deficit hyperactivity disorder), combined type (ICD-10 - F90.2) 07/06/2024 ADHD (attention deficit hyperactivity disorder), combined type (ICD-10 - F90.2) Pre-treatment evaluation and contraindications Before initiating treatment with a stimulant in adults, we review their cardiovascular history, including chest pain, palpitations, syncope, myocardial infarction, arrhythmia, valvular disease, and family history. We measure blood pressure and pulse in all patients and obtain an electrocardiogram (ECG) in individuals with cardiac history or cardiac symptoms such as palpitations or chest pain. In individuals with a cardiac history, or when findings outside normal limits are seen, we consult a brick kiln worker to determine whether the results are sufficiently severe to avoid these medications. We also rule out SHARRON; if you are using cannabis, are heavy alcohol, or are using other street drugs and have a history of SHARRON, than we consider non-stimulant treatment. We also do routine and random UDT If you refuse or fail to give urine for urine, then we will not prescribe controlled substances. If your urine comes positive for medicine (which are not prescribed to you) and illicit drugs (including Cannabis) then we will not prescribe a controlled substance There is a charge for Stimulant refills 08/26/2024 ADHD (attention deficit hyperactivity disorder), combined type (ICD-10 - F90.2) 07/06/2024 Chronic post-traumatic stress disorder (PTSD) (ICD-10 - F43.12) 08/02/2024 Chronic post-traumatic stress disorder (PTSD) (ICD-10 - F43.12) 11/09/2024 ADHD (attention deficit hyperactivity disorder), combined type (ICD-10 - F90.2) 12/24/2024 ADHD (attention deficit hyperactivity disorder), combined type (ICD-10 - F90.2) 01/25/2025 ADHD (attention deficit hyperactivity disorder), combined type (ICD-10 - F90.2) 01/06/2025 Generalized anxiety disorder (ICD-10 - F41.1) 08/26/2024 Chronic post-traumatic stress disorder (PTSD) (ICD-10 - F43.12) 12/24/2024 Chronic post-traumatic stress disorder (PTSD) (ICD-10 - F43.12) 01/25/2025 Chronic post-traumatic stress disorder (PTSD) (ICD-10 - F43.12) Weekly EMDR 11/09/2024 Chronic post-traumatic stress disorder (PTSD) (ICD-10 - F43.12) 07/06/2024 Chronic insomnia (ICD-10 - F51.04) 08/02/2024 Chronic insomnia (ICD-10 - F51.04) 08/26/2024 Chronic insomnia (ICD-10 - F51.04) 11/09/2024 Chronic insomnia (ICD-10 - F51.04) 12/24/2024 Chronic insomnia (ICD-10 - F51.04) 01/25/2025 Chronic insomnia (ICD-10 - F51.04) 01/25/2025 Nicotine use (ICD-10 - Z72.0) 12/24/2024 Encounter for screening for cardiovascular disorders (ICD-10 - Z13.6) 11/09/2024 Encounter for screening for cardiovascular disorders (ICD-10 - Z13.6) 08/26/2024 Encounter for screening for cardiovascular disorders (ICD-10 - Z13.6) 08/26/2024 Encounter for screening for depression (ICD-10 - Z13.31) 11/09/2024 Encounter for screening for depression (ICD-10 - Z13.31) 12/24/2024 Encounter for screening for depression (ICD-10 - Z13.31) 11/09/2024 Nicotine use (ICD-10 - Z72.0) 12/24/2024 Nicotine use (ICD-10 - Z72.0) 07/06/2024 Other Discontinue trazodone due to ineffectiveness. Start mirtazapine 15mg nightly for insomnia. Increase lamictal to 350mg total daily for mood, irritability. Patient educated on all medications including potential benefits, side effects, risks. Educated on proper dosing schedule and importance of compliance. Cont counseling Schedule for ADHD diagnosis to further evaluate sxs; discussed overlapping of sxs related to BAD and ADHD. Obtain records from previous psychiatrist -Assessment and treatment plan reviewed with patient. -Compliance with treatment plan importance discussed. -Discussed the risks/benefits of this medication -Discussed medication side effects. -Contact office if symptoms worsen. -Discussed that it can take up to 6-8 weeks to see full therapeutic effects of psychotropic medications. -Crisis prevention hotline 988. 08/02/2024 Other Stop Abilify due to ineffectiveness. Start Caplyta 10.5mg daily for one week then 21mg daily for mood stabilization, also will likely benefit sleep. -stop mirtazapine Patient educated on all medications including potential benefits, side effects, risks. Educated on proper dosing schedule and importance of compliance. [place] report checked and consistent with prescription history, no controlled substance prescriptions from other providers. ADHD evaluation reviewed, sent in methylphenidate ER 40mg daily. -Assessment and treatment plan reviewed with patient. -Compliance with treatment plan importance discussed. -Discussed the risks/benefits of this medication -Discussed medication side effects. -Contact office if symptoms worsen. -Discussed that it can take up to 6-8 weeks to see full therapeutic effects of psychotropic medications. -Crisis prevention hotline 988. 08/26/2024 Other Discontinue methylphenidate CD; Start Concerta 36mg daily due to cost Patient educated on all medications including potential benefits, side effects, risks. Educated on proper dosing schedule and importance of compliance. [place] report checked and consistent with prescription history, no controlled substance prescriptions from other providers. -Assessment and treatment plan reviewed with patient. -Compliance with treatment plan importance discussed. -Discussed the risks/benefits of this medication -Discussed medication side effects. -Contact office if symptoms worsen. -Discussed that it can take up to 6-8 weeks to see full therapeutic effects of psychotropic medications. -Crisis prevention hotline 988. 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 or mom will have medication at all times, give to patient as needed. Patient educated on all medications including potential benefits, side effects, risks. Educated on proper dosing schedule and importance of compliance. [place] report checked and consistent with prescription history, no controlled substance prescriptions from other providers. -Assessment and treatment plan reviewed with patient. -Compliance with treatment plan importance discussed. -Discussed the risks/benefits of this medication -Discussed medication side effects. -Contact office if symptoms worsen. -Discussed that it can take up to 6-8 weeks to see full therapeutic effects of psychotropic medications. -Crisis prevention hotline 988. 12/24/2024 Other Start buspar 5mg BID for anxiety Decrease lamictal to 150mg once daily Patient educated on all medications including potential benefits, side effects, risks. Educated on proper dosing schedule and importance of compliance. Cont therapy -Assessment and treatment plan reviewed with patient. -Compliance with treatment plan importance discussed. -Discussed the risks/benefits of this medication -Discussed medication side effects. -Contact office if symptoms worsen. -Discussed that it can take up to 6-8 weeks to see full therapeutic effects of psychotropic medications. -Crisis prevention hotline 988. 01/25/2025 Other Increase fanapt to 2mg BID for mood stabilization Increase methylphenidate to 20mg qam, 10mg qpm Patient educated on all medications including potential benefits, side effects, risks. Educated on proper dosing schedule and importance of compliance. [place] report checked and consistent with prescription history, no controlled substance prescriptions from other providers. -Assessment and treatment plan reviewed with patient. -Compliance with treatment plan importance discussed. -Discussed the risks/benefits of this medication -Discussed medication side effects. -Contact office if symptoms worsen. -Discussed that it can take up to 6-8 weeks to see full therapeutic effects of psychotropic medications. -[facility] Plan Of Treatment Pending Test Test Name Order Date ADHD Testing 07/06/2024 Insurance Providers Payer Name Payer Address Payer Phone Subscriber Number Group Number Insured Name Patient Relationship to Insured Coverage Start Date Coverage End Date [employer] [address] [place] [phone] [id number] [phone] Cherrie Jones Self - patient is the insured Medical (General) History Medical History History ICD Code Past Psychiatric History: An xiety Disorder,Panic Disorder,PTSD,Major Depressive Episode abdominal aortic aneurysm: No atrial fibrillation: No chronic fatigue syndrome: No essential tremor: No hyperlipidemia: No hypertension: No Parkinson's disease: No restless leg syndrome: No stroke: No subdural hematoma: No type 1 diabetes mellitus: No type 2 diabetes mellitus: No vitamin B12 deficiency: No vitamin D deficiency: No Surgical History Surgery Date(Month/Year) tonsils endometriosis
--- OUTSIDE RECORDS SUMMARY | 2025-03-01 12:42 | XMS_ITS | Continuity of Care Document ---
Author Name Caitlin Wesley Address [address] [place] [address] Organization Unknown Address [address] [place], [place] [id number] [place] [address] Medications No known medications Problems No known problems
--- OUTSIDE RECORDS SUMMARY | 2025-03-01 12:42 | XMS_ITS | Data Portability ---
Author Organization [facility] [employer], Main Office Address [address] [place] [address] Assessment Encounter Date Assessment Date Assessment LastModified by Organization Details LastModified Time 04/07/2024 04/07/2024 Flu shot: recommended at pharmacy COVID vaccines: x1 Tdap: 10/2022 WWE: 11/2023 Mammogram: 11/2020, had a lump with biopsy, was normal Colonoscopy: 2021, was normal Dental exam: sees Dr. Knight regularly, has dentures Eye exam: UTD [email or web address] Not available 04/07/2024 12:52:27 Plan of Treatment Reminders Order Date Submit Date Provider Last Modified By Organization Details Last Modified Time Details Appointments None recorded. Lab rapid strep group A, throat 2023 [facility], [address] [place] [address], [id number], 13:39:01 lipid panel, serum 2023 024 [email or web address] [facility], [place], [address], 4 08:19:42 CMP, serum or plasma 2023 024 [email or web address] [facility], [place], [address], 4 08:19:42 TSH, serum or plasma 2023 024 [email or web address] [facility], [address], [place], [address], 4 08:19:42 CBC w/ auto diff 2023 024 [email or web address], [address], [place], [address], 4 08:19:42 HbA1c (hemoglobin A1c), blood 2023 024 [email or web address], [address], [place], [address], 4 08:19:42 Referral psychiatris t referral - Please call patient to schedule an appointment . Thank you. 2024 025 TATYANA Combs [facility], [address] [address], [place], [address], 5 12:03:33 Procedures None recorded. Surgeries None recorded. Imaging CT, neck, soft tissue, w/ contrast - Please call pt to schedule 2023 024 [email or web address], [address] [place] [address], [address] [address], [place], [address], 4 09:25:10 XR, chest 2023 024 [email or web address], [address] [place] [address], [address] [address], [place], [address], 4 09:25:27 Medication Orders Chantix Starting Month Box 0.5 mg (11)-1 mg (42) tablets in dose pack 2024 025 TATYANA FULLER [id number] [facility], [address] [place], [address], 5 16:23:15 Airsupra 90 mcg-80 mcg/actuati on HFA aerosol inhaler 2023 024 TATYANA [id number], [address] [place] [address], [id number], 12:23:17 Medrol (Trev) 4 mg tablets in a dose pack 2023 [facility][id number], [address] [place] [address], [id number], 09:29:11 benzonatate 200 mg capsule [address] [id number], [address] [place] [address], [id number], 5 09:28:05 azithromyci n 250 mg tablet 2023 [email or web address] 4 [facility] #[id number], [address] [place] [address], [id number], 09:16:55 Patient TargetsNo targets recorded. Patient Instructions Encounter Date Encounter Id Patient Instructions Last Modified By Organization Details Last Modified Time 10/08/2024 [id number] Thank you for your visit to our office today. We would like to request that you reach out to your referring or previous provider and request that they send us a Summary of Care in electronic form, so that we may have it on file in your medical record. At your visit, we had the medical records we needed to provide you with the best possible care; however, for insurance purposes, an electronic Summary of Care is beneficial. Thank you for your assistance in obtaining this information and we look forward to providing continued care to you. Please review your medication list from the Summary of Care for this visit. If there are any differences from what you are currently taking at home, please call us to discuss. [email or web address] Not available 10/08/2024 09:10:47 Homebound Status : Does not meet homebound status Required Home Health Services: none Durable Medical Equipment needed: Billing Guidelines CPT code 62759- Transitional Care Management services with moderate medical decision complexity ([id number] visit within 14 days of discharge). CPT code 84529- Transitional Care Management services with high medical decision complexity ([id number] visit within 7 days of discharge). [email or web address] Not available 10/08/2024 11:11:14 Reason for Referral Psychiatrist Referral for Bi polar disorder, most recent episode depression Please call patient to schedule an appointment. Thank you. Referring Physician: Marie Baez, Family Medicine, Encounter Date: 02/18/2025 Results Created Date Observation Date Name Description Value Unit Range Abnormal Flag Note LastModifiedBy Organization Detail LastModifiedTime 04/27/20 24 04/27/2024 rapid strep group A, throa t STREP A negati ve Not Available [facility] [address] [place], [address], 04/27/2024 12:23:22 11/30/19 25 11/26/2024 MRI, lumba r spine , w/o contr ast No observ ation record ed. [email or web address] [facility] [address] [place] [address] [address], [place], [address], 12/28/2024 17:07:26 Result Notes None recorded. Problems Name Problem SNOMED Code Status Onset Date Resolution Date Notes Provider Name and Address Organization Details Recorded Time Dysphagia 03573960 Active 2023 FERNANDA Leslie [address], [place], [address], [employer] 4 12:44:22 Chronic cough 02363736 Active 2023 FERNANDA Leslie [address], [address], [place], [address], [employer] [facility] 4 12:53:55 Smoker 03841969 Active 2023 FERNANDA Leslie [address], [address], [place], [address], [employer] 4 14:05:29 Cough 91279061 Active 2023 FERNANDA Leslie [address], [address], [place], [address], [employer] [facility] 4 12:21:09 Wheezing symptom 339119369 Active 2023 FERNANDA Leslie [address], [address], [place], [address], [employer] 4 12:21:31 Sore throat 661785859 Active 2023 FERNANDA Leslie [address], [address], [place], [address], [employer] [facility] 4 12:23:19 Gastrointestin al complication 42333728 Active 2024 FERNANDA Leslie [address], [address], [place], [address], [employer] [facility] 5 11:10:52 Incontinence of feces 35506155 Active 2024 FERNANDA Leslie [address], [address], [place], [address], [employer] 5 13:00:32 Incontinence 32697694 Active 2024 FERNANDA Leslie [address], [address], [place], [address], [employer] 5 14:55:37 Bipolar disorder, most recent episode depression 920891732 Active 2024 FERNANDA Leslie [address], [address], [place], [address], [employer] 5 15:58:55 Mixed anxiety and depressive disorder 541012086 Active 2024 FERNANDA Leslie [address], [address], [place], [address], [employer] 5 16:19:30 Antidepressant drug adverse reaction 765777862 Active 2024 FERNANDA Leslie [address], [address], [place], [address], [facility] [employer] [facility] 5 16:19:49 Cigarette smoker 57940611 Active 2024 FERNANDA Leslie [address], [address], [place], [address], [facility] [employer] [facility] 5 16:22:39 Problem Notes None recorded. Procedures Surgical History Date Name Laterality Status Provider Name and Address Organization Details Recorded Time 10/09/19 25 Transitional_Car e_Management completed FERNANDA Leslie [address] [address], [place], [address], [facility] [employer] [facility] 10/08/2024 10:22:40 11/01/19 24 Date of Last Pap Smear completed Adriana Verduzco RN [facility] [employer] [facility] 04/07/2024 12:38:13 06/02/19 19 Partial hysterectomy completed Adriana Verduzco RN [facility] [employer] [facility] 04/07/2024 12:33:11 laparotomy completed Adriana Verduzco RN [facility] [employer] [facility] 04/07/2024 12:33:30 Imaging Results None recorded. Procedure Notes None recorded. Medical Equipment None Reported. Allergies Allergen ID Allergen Name Allergen Category Reaction Reaction Severity Criticality Documentation Date Start Date Code Code System Note Provider Name and Address Organization Details Recorded Time 13250 Bactrim medicatio n Not available Not available Not available 04/07/2024 90617 9 RxNorm JAMES Whyte, [facility] [employer] [facility] 4 12:25:28 44205 Depakote medicatio n Not available Not available Not available 04/07/2024 55430 9 RxNorm JAMES Whyte, [facility] [employer] [facility] 4 12:25:34 77176 Caplyta medicatio n diarrhea Not available high 02/18/2025 50552 08 RxNorm FERNANDA Leslie [address], [address] [address], [place], [address], [facility] [employer] [facility] 5 16:20:05 Medications Name Sig Start Date Stop Date Status Note LastModified by Organization Details LastModified Time buspirone 5 mg tablet TAKE 1 TABLET BY MOUTH TWICE A DAY 02/18 completed Not Available Not Available Not Available lamotrigi ne 150 mg tablet TAKE 2 TABLETS BY MOUTH AT BEDTIME active Not Available Not Available No t Available clonidine HCl 0.1 mg tablet TAKE 1 TABLET BY MOUTH EVERY DAY NEEDED active Not Available Not Available No t Available trazodone 50 mg tablet 10/08 completed Not Available Not Available Not Available azithromy juana 250 mg tablet TK 2 TS PO ON DAY 1, THEN TK 1 T PO D FOR 4 DAYS 05/05 completed Not Available Not Available Not Available amitripty line 75 mg tablet TAKE 1 TABLET BY MOUTH EVERY DAY 02/18 completed Not Available Not Available Not Available benzonata te 200 mg capsule TAKE 1 CAPSULE BY MOUTH THREE TIMES DAILY FOR 14 DAYS NEEDED 10/08 completed Not Available Not Available Not Available doxepin 25 mg capsule TAKE 1 CAPSULE BY MOUTH DAILY AT BEDTIME FOR 7 DAYS 10/08 completed Not Available Not Available Not Available methylphe nidate 10 mg tablet TAKE 2 TABLETS BY MOUTH EVERY MORNING AND TAKE 1 TABLET IN THE AFTERNOO N NEEDED active Not Available Not Available No t Available hydrocodo ne 5 mg-acetam inophen 325 mg tablet TAKE ONE TABLET BY MOUTH EVERY 4 HOURS NEEDED FOR PAIN 02/18 completed Not Available Not Available Not Available metronida zole 0.75 % (37.5 mg/5 gram) vaginal gel APPLY 1 APPLICAT ORFUL VAGINALL Y EVERY NIGHT AT BEDTIME FOR 5 NIGHTS 10/08 completed Not Available Not Available Not Available methylphe nidate 5 mg tablet TAKE 1 TABLET BY MOUTH DAILY NEEDED 10/08 completed Not Available Not Available Not Available clonazepa m 0.5 mg tablet TAKE 1 TABLET BY MOUTH EVERY 8 HOURS NEEDED. 04/07 completed Not Available Not Available Not Available sertralin e 100 mg tablet TAKE 1 TABLET BY MOUTH EVERY DAY active Not Available Not Available No t Available metronida zole 500 mg tablet TAKE 1 TABLET BY MOUTH TWICE A DAY FOR 7 DAYS active Not Available Not Available No t Available hydroxyzi ne HCl 50 mg tablet TAKE 1/2 TO 1 TABLET BY MOUTH TWICE DAILY NEEDED 2024 active Not Available Not Available Not Avai lable valacyclo vir 500 mg tablet TAKE 1 TABLET BY MOUTH EVERY DAY active Not Available Not Available No t Available ciproflox acin 500 mg tablet TAKE 1 TABLET BY MOUTH TWICE DAILY FOR 5 DAYS 04/07 completed Not Available Not Available Not Available tramadol 50 mg tablet TAKE 1 TABLET BY MOUTH EVERY 12 HOURS 02/18 completed Not Available Not Available Not Available amitripty line 50 mg tablet TAKE 1 TABLET BY MOUTH EVERY DAY AT BEDTIME 04/07 completed Not Available Not Available Not Available ondansetr on 8 mg disintegr ating tablet DISSOLVE 1 TABLET ON THE TONGUE DAILY NEEDED FOR NAUSEA AND VOMITING active Not Available Not Available No t Available ketorolac 10 mg tablet TAKE 1 TABLET BY MOUTH EVERY 6 HOURS NEEDED 10/08 completed Not Available Not Available Not Available dexmethyl phenidate 10 mg tablet TAKE 2 TABLETS BY MOUTH TWICE DAILY FOR 7 DAYS 05/12 completed Not Available Not Available Not Available cyprohept adine 4 mg tablet TAKE 2 TABLETS ORAL ONCE NIGHTLY active Not Available Not Available No t Available prazosin 5 mg capsule TAKE 1 CAPSULE BY MOUTH DAILY AT BEDTIME FOR 7 DAYS 02/18 completed Not Available Not Available Not Available Zofran 4 mg tablet Take 2 tablets twice a day by oral route. 02/18 completed Not Available Not Available Not Available propranol ol 10 mg tablet TAKE 1 TABLET BY MOUTH THREE TIMES DAILY NEEDED FOR ANXIETY 2024 active Not Available Not Available Not Avai lable amitripty line 25 mg tablet TAKE 2 TABLETS BY MOUTH EVERY DAY AT BEDTIME 04/07 completed Not Available Not Available Not Available lorazepam 0.5 mg tablet TAKE 1 TABLET BY MOUTH ONCE A DAY NEEDED FOLLOWIN G EMDR SESSIONS 02/18 completed Not Available Not Available Not Available estradiol 1 mg tablet TAKE 1 TABLET BY MOUTH EVERY DAY active Not Available Not Available No t Available trazodone 100 mg tablet TAKE 1 TABLET BY MOUTH EVERY DAY NEEDED 02/18 completed Not Available Not Available Not Available trazodone 150 mg tablet TAKE 1 TABLET BY MOUTH EVERY NIGHT AT BEDTIME NEEDED 04/07 completed Not Available Not Available Not Available propranol ol ER 80 mg capsule,2 4 hr,extend ed release 10/08 completed Not Available Not Available Not Available sertralin e 25 mg tablet TAKE 1 TABLET BY MOUTH EVERY DAY FOR TOTAL DAILY DOSE OF 125MG active Not Available Not Available No t Available buspirone 7.5 mg tablet TAKE 1 TABLET BY MOUTH 3 TIMES A DAY active Not Available Not Available No t Available mirtazapi ne 15 mg tablet TAKE 1 TABLET BY MOUTH DAILY AT BEDTIME 02/18 completed Not Available Not Available Not Available methylpre dnisolone 4 mg tablets in a dose pack FOLLOW PACKAGE DIRECTIO NS 10/08 completed Not Available Not Available Not Available ondansetr on 4 mg disintegr ating tablet DISSOLVE 1 TABLET ON THE TONGUE EVERY 8 HOURS NEEDED FOR NAUSEA OR VOMITING 04/07 completed Not Available Not Available Not Available sertralin e 50 mg tablet 10/08 completed Not Available Not Available Not Available doxycycli ne hyclate 100 mg tablet TAKE 1 TABLET BY MOUTH TWICE DAILY active Not Available Not Available No t Available lamotrigi ne 100 mg tablet TAKE 1/2 TABLET BY MOUTH ONCE A DAY *TOTAL DAILY DOSE = 350 MG* 02/18 completed Not Available Not Available Not Available prazosin 2 mg capsule TAKE 3 CAPSULES BY MOUTH AT BEDTIME 02/18 completed Not Available Not Available Not Available naproxen 500 mg tablet TAKE 1 TABLET BY MOUTH TWICE DAILY 10/08 completed Not Available Not Available Not Available methylphe nidate ER 36 mg tablet,ex tended release 24 hr TAKE 1 TABLET BY MOUTH EVERY DAY IN THE MORNING FOR 7 DAYS 10/08 completed Not Available Not Available Not Available diazepam 5 mg tablet as needed- loss of cousin 10/08 completed Not Available Not Available Not Available escitalop garth 10 mg tablet TAKE 1 TABLET BY MOUTH EVERY DAY AT BEDTIME 10/08 completed Not Available Not Available Not Available aripipraz ole 20 mg tablet TAKE 1 TABLET BY MOUTH EVERY DAY 08/02 completed Psych changed Not Available Not Available Not Available methylphe nidate CD 10 mg biphasic 30-70 capsule,e xtended release TAKE 1 CAPSULE BY MOUTH ONCE A DAY EVERY MORNING 02/18 completed Not Available Not Available Not Available nitrofura ntoin monohydra te/macroc rystals 100 mg capsule TAKE 1 CAPSULE BY MOUTH TWICE DAILY FOR 5 DAYS 10/08 completed Not Available Not Available Not Available dexmethyl phenidate ER 20 mg capsule,e xtended release biphasic5 0-50 10/08 completed Not Available Not Available Not Available estradiol 1mg daily active Not Available Not Available No t Available methylphe nidate CD 40 mg biphasic 30-70 capsule,e xtended release TAKE 1 CAPSULE BY MOUTH EVERY DAY IN THE MORNING BEFORE BREAKFAS T FOR 30 DAYS 02/18 completed Not Available Not Available Not Available varenicli ne tartrate 1 mg tablet TAKE 1 TABLET BY MOUTH TWICE DAILY DIRECTED 10/08 completed Not Available Not Available Not Available varenicli ne tartrate 0.5 mg tablet TAKE 1 TABLET BY MOUTH FOR 3 DAYS THEN TAKE 2 TABLETS BY MOUTH FOR 4 DAYS active Not Available Not Available No t Available varenicli ne tartrate 0.5 mg (11)-1 mg (42) tablets in a dose pack TAKE DIRECTED ON PACK active Not Available Not Available No t Available Fanapt 4 mg tablet TAKE 1 TABLET BY MOUTH TWICE A DAY active Not Available Not Available No t Available Fanapt 1 mg tablet TAKE 1 TABLET BY MOUTH TWICE A DAY 02/18 completed Not Available Not Available Not Available dexmethyl phenidate ER 30 mg capsule,e xtended release biphasic5 0-50 10/08 completed Not Available Not Available Not Available Fanapt 2 mg tablet TAKE 1 TABLET BY MOUTH TWICE A DAY 02/18 completed Not Available Not Available Not Available dexmethyl phenidate ER 40 mg capsule,e xtended release biphasic5 0-50 TAKE 1 CAPSULE BY MOUTH DAILY IN THE MORNING 10/08 completed Not Available Not Available Not Available lurasidon e 40 mg tablet 10/08 completed Not Available Not Available Not Available Vraylar 3 mg capsule 04/07 completed Not Available Not Available Not Available Humira(CF ) Pen 40 mg/0.4 mL subcutane ous kit 10/08 completed Not Available Not Available Not Available Caplyta 42 mg capsule TAKE 1 CAPSULE BY MOUTH EVERY DAY FOR 30 DAYS 02/18 completed Not Available Not Available Not Available Skyrizi 150 mg/mL subcutane ous syringe Inject 150 mg by subcutan eous route. active Every 12 weeks Not Available Not Available Not Available Vtama 1 % topical cream 02/18 completed Not Available Not Available Not Available Caplyta 21 mg capsule TAKE 1 CAPSULE BY MOUTH EVERY DAY 02/18 completed Not Available Not Available Not Available Airsupra 90 mcg-80 mcg/actua tion HFA aerosol inhaler INHALE 2 PUFFS BY MOUTH TWICE DAILY NEEDED active Not Available Not Available No t Available Vitals Date Recorded Body height Body mass index (BMI) Body weight Body temperature Oxygen saturation Oxygen saturation in Arterial blood by Pulse oximetry Heart rate Systolic And Diastolic Provider Name and Address Organization Details Last Updated DateTime 5 165.1 cm 21.9 kg/m2 94976.3 5 g 98.2 [degF] 96 % 96 % 98 /min 120/82 mm[Hg] Samantha Reyes RN [facility] [employer] [facility] 5 09:15:04 Date Recorded Body height Body mass index (BMI) Body weight Body temperature Heart rate Respiratory rate Oxygen saturation Oxygen saturation in Arterial blood by Pulse oximetry Systolic And Diastolic Provider Name and Address Organization Details Last Updated DateTime 5 165.1 cm 24.5 kg/m2 80569.4 3 g 97.4 [degF] 78 /min 20 /min 95 % 95 % 100/60 mm[Hg] Adriana Verduzco RN [facility] [employer] 5 15:41:50 Date Recorded Body height Body mass index (BMI) Body weight Body temperature Heart rate Respiratory rate Oxygen saturation Oxygen saturation in Arterial blood by Pulse oximetry Pain severity - 0-10 verbal numeric rating [Score] - Reported Systolic And Diastolic Provider Name and Address Organization Details Last Updated DateTime 4 165.1 cm 21.4 kg/m2 50971.2 7 g 97.5 [degF] 104 /min 20 /min 98 % 98 % 0 140/94 mm[Hg] Adriana Verduzco RN [facility] [employer] [facility] 4 12:31:45 Date Recorded Body height Body mass index (BMI) Body weight Body temperature Heart rate Respiratory rate Oxygen saturation Oxygen saturation in Arterial blood by Pulse oximetry Pain severity - 0-10 verbal numeric rating [Score] - Reported Systolic And Diastolic Provider Name and Address Organization Details Last Updated DateTime 4 165.1 cm 21.5 kg/m2 64154.2 2 g 97.3 [degF] 125 /min 20 /min 98 % 98 % 4 140/80 mm[Hg] Adriana Verduzco RN [facility] [employer] [facility] 12:03:35 Social History Question Answer Notes LastModified by Organizat ion Details LastModified Time Tobacco Smoking Status Former Smoker Adriana Verduzco RN [facility], [facility] [employer] [facility] 04/07/2024 12:35:37 Do You Have An Advance Directive? No Information not available 04/07/2024 What Is Your Level Of Caffeine Consumption? None Information not available 04/07/2024 In The 14 Days Before Symptom Onset, Have You Had Close Contact With A Laboratory-confi rmed COVID-19 While That Case Was Ill? No Information not available 04/07/2024 In The 14 Days Before Symptom Onset, Have You Had Close Contact With A Person Who Is Under Investigation For COVID-19 While That Person Was Ill? No Information not available 04/07/2024 What Type Of Diet Are You Following? REGULAR Information not available 04/07/2024 Which Illicit Or Recreational Drugs Have You Used? THC For Sleep Information not available 04/07/2024 Have There Been Any Changes To Your Family Or Social Situation? No Information not available 04/07/2024 Do You Use Insect Repellent Routinely? No Information not available 04/07/2024 Where Do You Live? SingleLevelHouse Information not available 04/07/2024 Do You Have A Medical Power Of Brick Paver? No Information not available 04/07/2024 How Many Children Do You Have? 2 Information not available 04/07/2024 Do You Have Any Pets? Yes Information not available 04/07/2024 What Is Your Relationship Status? Information not available 04/07/2024 Do You Use Your Seat Belt Or Car Seat Routinely? Yes Information not available 04/07/2024 Do You Have Smoke And Carbon Monoxide Detectors In Your Home? Yes Information not available 04/07/2024 At What Age Did You Start Smoking Tobacco? 15 Information not available 04/07/2024 Are You Passively Exposed To Smoke? No Information not available 04/07/2024 Are There Any Smokers In Your House? No Information not available 04/07/2024 Do You Participate In Social Media? Yes Information not available 04/07/2024 Do You Use Sunscreen Routinely? No Information not available 04/07/2024 How Many Years Have You Smoked Tobacco? 13 On And Off Information not available 04/07/2024 Have You Recently Traveled Abroad? No Information not available 04/07/2024 Sex: Unknown Functional Status Question Answer Note LastModified by [employer] ion Details LastModified Time Do you use any illicit or recreational drugs? Yes Information not available 04/07/2024 What is your level of alcohol consumption? None Information not available 04/07/2024 Are you currently employed? Yes Information not available 04/07/2024 What is your occupation? [employer] Information not available 04/07/2024 What is your exercise level? None Information not available 04/07/2024 Mental Status Question Answer Note LastModified by Organization D etails LastModified Time Do you feel stressed (tense, restless, nervous, or anxious, or unable to sleep at night)? [id number] Information not available 02/18/2025 Family History Relationship Description Onset Age of this Age Resolved Age Notes LastModified by Organization Details LastModified Time Maternal Grandmother Malignant neoplasm of bone Not available 2023 12:32:06 Mother Diabetes mellitus Not available 2023 12:32:15 Mother Depressive disorder Not available 2023 12:32:38 Father Depressive disorder Not available 2023 12:32:38 Medical History Condition Response ADD/ADHD Y ANXIETY DISORDER Y DEPRESSION (INCLUDING POST ) Y Do you have Advance directive? N Gynecological History Statement/Question Response Abnormal Pap N Date of Last Colonoscopy Date of LMP Most Recent Bone Density Date of Last Pap Smear 11/01/2023 Most Recent Mammogram Obstetrics History GPAL:G 0 P 0 0 0 0 Past Encounters Encounter ID Performer Location Encounter Start Date Encounter Closed Date Diagnosis/Indication Diagnosis SNOMED-CT Code Diagnosis ICD10 Code Diagnosis IMO Codes Diagnosis Note [id number] Ike Stovall MD [address] [address] 04/07/2024 12:01:41 04/07/2024 13:58:18 Adult health examination [id number] Z00.00 Health maintenanc e reviewedDi scussed low carb, fat, greasy dietDiscus sed 150 minutes moderate exercise weekly Dysphagia 73547734 R13.1 0 Has had EGD and sinus scope, negative. Persistent difficulty swallowing and episodes of choking. States has had to have assistance with choking multiple times. Diabetes m ellitus screening [id number] Z13.1 Chronic cough 11145462 R 05.3 Persistent cough, worse after eating Hyperlipid emia screening 562263844 Z13.220 Thyroid di sorder screening 483534771 Z13.29 [id number] Ike Stovall MD [address] [address] 04/27/2024 11:55:38 04/27/2024 12:37:05 Cough 19738500 R05.9 Wheezing symptom 8814354 08 R06.2 Sore throat 714617483 J0 2.9 [id number] FERNANDA Leslie [address] [address] 10/08/2024 09:05:49 10/11/2024 08:09:51 Transition of care [id number] 105 Z75.8 Headaches and loss of bowel and bladder have resolved. Recommende d MRI and neuro FU and patient declinesMo st likely secondary to discontinu ing amitriptyl ine as symptoms resolved after resuming this medication Gastrointe stinal complication 74790295 K92.9 70376 loss of bowel and bladder have resolved. Recommende d MRI and neuro FU and patient declinesMo st likely secondary to discontinu ing amitriptyl ine as symptoms resolved after resuming this medication Abdomen exam benign.No saddle numbness or ambulatory difficulti es [id number] Ike Stovall MD [facility] [address] [address] 02/18/2025 15:15:47 02/18/2025 16:31:11 Bipolar disorder, most recent episode depression 917180006 F31.9 116305 Not well controlled , currently in a depressive state Mixed anxi ety and depressive disorder 356595397 F41.9 F32.A 882415 Not well controlled . Recent medication changes and EDMR therapy. 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 Cigarette smoker 4023263 7 F17.210 254201 Currently smoking 1 cigarette per day Health Concerns Section Related Observation LastModified by Organization Detai ls LastModified Time None Recorded Concern Status LastModified by Organization Details LastModified Time None Recorded Advance Directives Directive N: Payers Insurance Date Sequence Insurance Name Policy Number Policy Ledesma Covered Member ID Ledesma Member ID Guarantor Name 10/08/2024 1 [facility] [id number] Cherrie Jones [id number] Cherrie Jones 02/21/2025 1 [employer] ([employer]) [id number] Rebecca a Karen [id number] Cherrie Jones Notes Date Note Type Note Provider Name and Address Organization Details Recorded Time 04/07/2024 text/html Rose Jones is a 38 year old female patient here today to establish care and annual wellness visit. She has not seen a primary care in 4 years. She has concerns with a chronic cough and gagging x2 years, she has had a nasal scope and was told it was clear. She had an EGD 2 years ago and was told this is also clear. Notices this is worse after she eats. Has issues with recurrent nausea, takes amitriptyline at bedtime and Zofran History of HS, takes doxycycline as needed. Significant psych history, sees Jonathan Haynes. BPD, PTSD, OCD, impulsive thoughts, anxiety, ADHD Flu shot: recommended at pharmacyCOVID vaccines: x1Tdap: 10/2022WWE: 11/2023Mammogram: 11/2020, had a lump with biopsy, was normalColonoscopy: 2022, was normalDental exam: sees Dr. Knight regularly, has denturesEye exam: UTD FERNANDA Leslie [address], [place], [address], [facility] [employer] [facility] [employer] [facility] 04/07/2024 13:00:28 04/27/2024 text/html Rose Jones is a 38 year old female patient here today for a sick visit This began last Friday with fever and body achesSunday sore throat, cough (minimal production). Concerns she may have pneumonia or strep throat. Has been taking chantix for smoking cessation. States she has only smoked 1/2 pack in the last 2 weeks. FERNANDA Leslie [address], [facility] [address], [place], [address], [facility] [employer] 04/27/2024 12:36:37 10/08/2024 text/html Rose Jones is a 38 year old female patient here today for an ER FU She went to [facility] ER on 09/23/24 for headaches and shooting pains along her neck. She took gabapentin, muscle relaxers, toradol, ibuprofen, and tylenol at home before she went. She was given Valium and fluids and sent home. The following Friday, she woke up and had lost control of bowel and bladder in her sleep. This occurred 4 nights in a row. She then went to [facility] ER and was given a CT of the head which was normal. She was advised to FU outpatient. She does note that 2 weeks prior to this she stopped taking amitriptyline. Her psychiatrist mentioned that her loss of bowel and bladder could be related to the discontinuation of this med and she has restarted this. She no longer has these symptoms. No headaches, no loss of bowel or bladder. Feels much better today. FERNANDA Leslie [address], [facility] [address], [place], [address], [facility] [employer] 10/08/2024 11:11:50 02/18/2025 text/html Rose Jones is a 39 year old female patient here today for a 4 month FU. She has had persistent issues with loss of control with bowel, mostly overnight.She has been seen in the ER numerous times since her last visit.She has had an MRI of the brain which was unremarkable as well as a lumbar MRI which resulted mild degenerative changes. She believes this is related to caplyta. She has stopped taking this and her bowel issue has resolved.She is now taking Fanapt 4 mg BID. She is still seeing psychiatry (at [facility]) and counseling ([facility]) with EDMR therapy. She is currently doing EDMR twice weekly.She notes that following EDMR therapy, she has panic attacks.She feels she is severely depressed now and struggles to get out of bed.For panic, she takes 1-2 7.5 mg buspirone or clonidine 0.1 mg daily. She does have hydroxyzine 50 mg and propranolol 10 mg on hand PRN. She recently lost her job. She has applied for unemployment. Marie Baez, KNOT PICKER CLOTH [address] [facility], [facility] [address], [place], [address], [facility] 02/18/2025 16:23:36 OBGyn Episode No OBEpisode recorded.
--- OUTSIDE RECORDS SUMMARY | 2025-03-01 12:42 | XMS_ITS | Encounter Summary ---
Author Organization [facility] Address [address] [place] [address] Care Team Providers Care Fountain Attendant Name Role Phone Unknown, Provider Primary Care Provider Paulie Taylor MD Primary Care Provider [phone] None, Physician Primary Care Provider UnavailMarie Perez Primary Care Provider [phone] Reason for Visit * Reason Onset Date Comments General 04/08/2018 Encounter Details Date Type Department Care Team (Late st Contact Info) Description 04/08/2018 Telephone [facility] [address] [place] [address] Dick Barnett MD [address] [facility] [address] [place] [address] General Social History Tobacco Use Types Packs/Day Years Used Date Smoking Tobacco: Every Day Cigarettes Smokeless Tobacco: Never Alcohol Use Standard Drinks/Week Comments No 0 (1 standard drink = 0.6 oz pur e alcohol) Comments Unknown Sex and Gender Information Value Date Recorded Sex Assigned at Female 10/23/2022 5:56 PM CDT Legal Sex Female 6:28 PM LOT PORTER Gender Identity Female 10/23/2022 5:56 PM CDT Sexual Orientation Straight 10/23/2022 5: 56 PM CDT documented as of this encounter Miscellaneous Notes * Telephone Encounter - Elizabeth Razo MA - 04/08/2018 5:04 PM CST PEARL was 04/06/2018 Was advised that she needed to see Neuro. Was referral sent? Please advise Elizabeth Razo MA PORTER * Telephone Encounter - Aimee Villatoro - 04/08/2018 3:22 PM CST Pt called stating she has been in contact with neuro and they do not have the referral that we sentfor her to be seen I their office. Pt state she received a voicemail from Dipti I let her know theonly dipti we have in office is Dr. Barnett. Please check the status of this referral. PORTER documented in this encounter Plan of Treatment Not on file documented as of this encounter Visit Diagnoses Not on filedocumented in this encounter Care Teams Fountain Attendant Relationship Specialty Start Date End Date Unknown, Provider PCP - General 11/03/17 10/18/18 Paulie Mtz MD PCP - General 10/19/18 06/06/20 None, Physician [address] [place] [address] PCP - General 04/13/24 12/07/24 Marie Baez [address] [place] [address] PCP - General 12/08/24 documented as of this encounter
--- OUTSIDE RECORDS SUMMARY | 2025-03-01 12:43 | XMS_ITS | Clinical Summary ---
Author Organization [facility] Address [address] [place] [address] Care Team Providers Care Automatic Pilot Mechanic Name Role Phone Joelle Williamson DNP Unavailable [phone] Marie Baez TOP CASE ASSEMBLER Primary Care Provider Allergies Active Allergy Reactions Criticality Noted Date Comments Sulfamethoxazole-Trimethoprim Itching Low 2024 Medications amitriptyline (ELAVIL) 75 mg tablet Take 1 tablet (75 mg total) by mouth nightly Active cloNIDine (CATAPRES) 0.1 mg tablet Take 1 tablet (0.1 mg total) by mouth daily as needed (anxiety/ADD) Active cyproheptadine (PERIACTIN) 4 mg tablet Take 1-2 tablets (4-8 mg total) by mouth nightly as needed for allergies 4 Active hydrOXYzine (ATARAX) 50 mg tablet Take 0.5-1 tablets (25-50 mg total) by mouth 2 (two) times a day as needed for anxiety 4 Active lumateperone (Caplyta) 21 mg capsule Take 1 capsule by mouth nightly Active methylphenidate HCl (RITALIN) 10 mg tablet Take 1 tablet (10 mg total) by mouth daily with lunch 0 5 Active prazosin (MINIPRESS) 2 mg capsule Take 3 capsules (6 mg total) by mouth nightly 3 Active valACYclovir (VALTREX) 500 mg tablet Take 1 tablet (500 mg total) by mouth nightly 2 Active methylphenidate CD (METADATE CD) 40 mg CR capsule Take 1 capsule (40 mg total) by mouth every morning Active lamoTRIgine (LaMICtal) 100 mg tablet Take 3.5 tablets (350 mg total) by mouth nightly Active sertraline (ZOLOFT) 50 mg tablet Take 2.5 tablets (125 mg total) by mouth nightly Active propranoloL (INDERAL) 10 mg tablet Take 1 tablet (10 mg total) by mouth 3 (three) times a day as needed (anxiety) Active Active Problems Problem Noted Date Diagnosed Date Abnormal mammography 12/25/2020 Sudden hearing loss of both ears 06/27/2020 Assessment & Plan (06/28/2020 6:19 PM YARN MERCERIZER OPERATOR): Hearing test due to Sudden hearing test Call if hearing loss returns Other seborrheic dermatitis 06/07/2020 Overview (11/19/2020): Last Assessment & Plan: - severe involving glabella, eyebrows, and NLF - Rarely washes face, infrequent showering, scalp scale - Keto cream, shampoo, and elidel Sepsis 06/03/2020 Assessment & Plan (06/03/2020 9:41 PM YARN MERCERIZER OPERATOR): Suspected secondary to possible UTI/pyelo. She also has bilateral CVA tenderness although patient was attributing this pain to her chronic back pain. Patient has a white count of 30.7 with 13% bands. Will check a lactate. Urine and blood cultures are in process. Continue empiric antibiotics. Will continue to monitor. May need ultrasound of the kidneys if patient does not improve with empiric antibiotic treatment. Patient does have an acute kidney injury and cannot have contrast right now. Chronic back pain 06/03/2020 Assessment & Plan (06/03/2020 9:35 PM YARN MERCERIZER OPERATOR): Patient states this was from an accident. She was requesting Tylenol threes or tramadol. Tramadol is not a good medication for patient as she has seizures. Will order p.r.n. Tylenol. Tylenol threes are non formulary. Patient does have a history of opiate dependence. If patient is afebrile, will try heating pad as well. Elevated LFTs 06/03/2020 Assessment & Plan (06/03/2020 9:44 PM YARN MERCERIZER OPERATOR): Could be due to infection and sepsis. Patient states she she did use IV drug once and was told she has hepatitis-C. Will check a hepatitis C antibody. Patient was hep B and hep C negative in 2019. Dependence on nicotine from cigarettes Assessment & Plan (06/03/2020 9:47 PM YARN MERCERIZER OPERATOR): Patient stated she wanted to go out to smoke. She was advised she cannot smoke in the hospital. Will order nicotine patch Hearing loss 06/03/2020 Assessment & Plan (06/03/2020 9:56 PM YARN MERCERIZER OPERATOR): Apparently occurred in the ER. Communication with patient is by writing. Neurology was consulted. May need ENT evaluation. Seizures, generalized convulsive 04/26/2020 Assessment & Plan (06/03/2020 9:45 PM YARN MERCERIZER OPERATOR): With possible breakthrough seizure. Patient states she has an appointment with Neurology this Friday. Neurology has been consulted. Seizure precautions. ADHD (attention deficit hyperactivity disorder) 04/25/2020 Anxiety 04/25/2020 Dystonia 06/24/2019 Bipolar I disorder, most recent episode depresse d 01/31/2019 Assessment & Plan (02/12/2020 11:36 AM CDT): Most recently taking Prozac 30mg daily & zyprexa --Patient may resume these medications at discharge Assessment & Plan (02/11/2020 6:13 PM CDT): Most recently taking Prozac 30mg daily & zyprexa --Hold meds for now, restart when awake Tardive dyskinesia 12/14/2018 Overview (02/11/2020): Note: from abrupt discontinuation of Abilify Restless legs syndrome 12/14/2018 Psychophysiological insomnia 12/14/2018 Panic disorder 12/14/2018 Adult attention deficit hyperactivity disorder 0 12/14/2018 Assessment & Plan (02/12/2020 11:29 AM CDT): Holding Vyvanse & Ritalin -resume previous home medications at discharge Assessment & Plan (02/11/2020 6:10 PM CDT): Holding Vyvanse & Ritalin Paresthesia 09/14/2018 Opioid dependence 08/24/2014 Assessment & Plan (06/03/2020 9:42 PM YARN MERCERIZER OPERATOR): Patient's urine was positive for fentanyl although patient attributes this to her being in the ER and she was to been given it there. She denied using. Other psoriasis 09/10/2013 Overview (11/19/2020): Last Assessment & Plan: - previously on Stelara 2013 - Off and on MTX stopped most recently 11/2019, cumulative dose 1550 - controlled on exam today - dovonex PRN Non-neoplastic nevus 05/19/2013 Vitamin D deficiency 09/23/2012 Overview (02/11/2020): Note: Vitamin D def - 26 on 02/12/19 Neck pain on left side 07/08/2012 Major depressive disorder, single episode, mild 07/01/2012 Bipolar affective disorder, currently active Assessment & Plan (06/03/2020 9:44 PM YARN MERCERIZER OPERATOR): Continue fluoxetine, Zyprexa Accidental fentanyl overdose Resolved Problems Problem Noted Date Diagnosed Date Resolved Date Altered mental status 06/03/20202020 Assessment & Plan (06/03/2020 9:37 PM YARN MERCERIZER OPERATOR): With seizure-like activity. Patient has a history of seizures. She is on Keppra which has been resumed. Keppra level is in process. Neurology was consulted. Patient may also have sepsis from UTI. Currently patient is awake and alert. Urine drug screen was positive for fentanyl and when patient was asked she stated must to been when she was in the ER recently, either here or at [place] she cannot remember. Patient was last here in our ER on 05/21 and she received Toradol for pain. Acute kidney injury 06/03/2020 06/04/19 21 Assessment & Plan (06/03/2020 9:40 PM YARN MERCERIZER OPERATOR): Creatinine was 0.95 2 weeks ago. Suspecting prerenal versus infection although patient also had contrast 2 weeks ago in the ED. will continue with fluids and continue to monitor. Hold all nephrotoxins. Hyperglycemia 06/03/2020 06/04/2020 Assessment & Plan (06/03/2020 9:53 PM YARN MERCERIZER OPERATOR): Present on admission but no history of diabetes. Patient received 10 of regular insulin and became hypoglycemic. She is currently on IV dextrose. Will check A1c. Altered mental status associ ated with intoxication 02/11/2020 02/12/2020 Assessment & Plan (02/12/2020 11:31 AM CDT): Patient reports taking meds that she got from a friend. Mother noted a xanax bottle near her at home when she was found unresponsive. Patient has multiple similar prescriptions from multiple prescribers and hospital systems. Positive UDS for opiates and benzos. Denies SI. - Mental status improved. Discussed case with neurology. No further need for imaging or observation at this time. -discussed with patient unsafe use of medication and encouraged the patient to stick to only her prescribed medications and follow-up with her PCP or psychiatrist for dose adjustment. -patient reports chronic benzo use. Will resume low dose xanax to avoid withdrawal. -Told patient that no controlled medications will be prescribed at discharge. Assessment & Plan (02/11/2020 6:14 PM CDT): Patient reports taking meds that she got from a friend. Mother noted a xanax bottle near her at home when she was found unresponsive. Patient has multiple similar prescriptions from multiple prescribers and hospital systems. Positive UDS for opiates and benzos. Denies SI. Says she was taking xanax because her heart was too fast --Monitor mental status. Repeat Head CT if changes to neuro exam --Check UDS with reflex confirmation --Monitor on tele with pulse ox --Monitor on telemetry with pulse oxy --Narcan PRN --Reports TID use of xanax or diazepam but unclear if that is accurate since she has no active prescription. May be getting meds from a friend Acute bilateral low back yadi n without sciatica 07/10/2018 02/12/2020 Assessment & Plan (02/12/2020 11:28 AM CDT): Holding all sedating meds, including gabapentin, Vicodin, and benzos. -restart home meds as needed. Assessment & Plan (02/11/2020 6:10 PM CDT): Holding all sedating meds, including gabapentin, Vicodin, and benzos Encounters Date Type Department Care Team Description 12/25/2024 2:26 PM CDT - 12/25/2024 3:51 PM CDT Emergency [facility] Emergency Department [address] [place] [address] Leonard Keane MD Incontinence of feces, unspecified fecal incontinence type (Primary Dx); Urinary incontinence, unspecified type; Anxiety Discharge Disposition: Discharge to home or self care from Last 3 Months Immunizations Immunization Administration Dates Next Due Hep A, Adult 05/11/2004 Influenza, Quadrivalent, Spl it, Preservative Free, Intramuscular 03/31/2019 Influenza, Trivalent, Preservative Free, Intramu scular 06/16/2018,03/06/2018 Influenza, Unspecified 05/10/2019 Surgical History Surgery Date Site/Laterality Comments HYSTERECTOMY TONSILLECTOMY BREAST BIOPSY 12/25/2020 Right Medical History Medical History Date Comments Bipolar 1 disorder (HCC) Depression Rheumatoid arthritis (HCC) ADHD (attention deficit hyperactivity disorder) Seizures (HCC) Psoriasis Family History Medical History Relation Name Comments Breast cancer Maternal Grandmother Cancer -breast; Arthritis Other Cancer Other Diabetes Other Mental illness Other Relation Name Status Comments Maternal Grandmother Other Social History Tobacco Use Types Packs/Day Years Used Date Smoking Tobacco: Every Day Cigarettes Smokeless Tobacco: Never Alcohol Use Standard Drinks/Week Comments No 0 (1 standard drink = 0.6 oz pur e alcohol) PHQ-2 Answer Date Recorded PHQ-2 Total Score (If total score is 3 or more points, staff should administer the PHQ-9) 0 06/04/2020 Personal Safety Answer Date Recorded Have you ever been in or are you currently in a harmful physical or emotional relationship or is someone making you feel afraid or unsafe? Denies 12/25/2024 Comments No Sex and Gender Information Value Date Recorded Sex Assigned at Not on file Legal Sex Female 11:51 PM YARN MERCERIZER OPERATOR Gender Identity Not on file Sexual Orientation Not on file Obstetrics History Last Filed Vital Signs Vital Sign Reading Time Taken Comments Blood Pressure 104/70 12/25/2024 12:53 PM CDT Pulse 98 12/25/2024 12:53 PM CDT Temperature 37.2 C (98.9 F) 12/25/2024 12:53 PM CDT Respiratory Rate 14 12/25/2024 12:53 PM CDT Oxygen Saturation 98% 12/25/2024 12:53 PM CDT Inhaled Oxygen Concentration - - Weight 59.4 kg (131 lb) 12/25/2024 12:53 PM CDT Height 165.1 cm (5' 5) 12/25/2024 12:53 PM CDT Body Mass Index 21.8 12/25/2024 12:53 PM CDT Plan of Treatment Health Maintenance Due Date Last Done Comments Breast Cancer Screening-Mammogram 1984 DTaP/Tdap/Td Vaccine (1 - Tdap) 12/13/1995 Varicella Vaccines (1 of 2 - 13+ 2-dose series) 1997 Hepatitis B Screening 2002 Regular Well Visit/Exam 18-64 2002 Pneumococcal vaccine <65 (1 of 2 - PCV) 12/13/2003 HPV Vaccines (1 - 3-dose SCD M series) 12/13/2011 Depression Screening 06/03/2021 06/03/2020 Influenza Vaccine (#1) 2025 , 05/10/2019, 03/31/2019, Additional history exists Hepatitis C Screening Completed 06/04/2020, 021 Procedures Procedure Name Priority Date/Time Associated Diagnosis Comments HEPATITIS C ANTIBODY Routine 06/04/2020 3:26 AM YARN MERCERIZER OPERATOR from Last 3 Months or Most Recently Relevant to Health Maintenance Results * Hepatitis C antibody (06/04/2020 3:26 AM YARN MERCERIZER OPERATOR) Hep C Ab Nonreactive Nonreactive ANNIE LUQUE (ROBBINS) Comment: Interpretive Data Nonreactive: Antibodies to HCV not detected. Does NOT exclude the possibility of recent exposure to HCV. Equivocal: Equivocal for HCV antibodies. Supplemental molecular testing will be automatically performed to determine infection status in accordance with current CDC screening recommendations. Reactive: Positive for HCV antibodies. This may represent current or past HCV infection. Supplemental molecular testing will be automatically performed to determine current infection status in accordance with current CDC screening recommendations. Interpretive data was last revised on 2019. Testing performed by: [facility], [address] [place] [address]., [address] Blood specimen (specimen) 06/04/2020 3:26 AM YARN MERCERIZER OPERATOR 06/04/2020 7:01 PM YARN MERCERIZER OPERATOR us Marcelle Sanchez MD LAB MICROBIOLOGY - GENERAL ORDER FLORENT[place] Final Result ANNIE LUQUE (SOTO) [address] [facility] Department [place] [address] from Last 3 Months or Most Recently Relevant to Health Maintenance Insurance [facility] [employer] [facility] Advance Directives For more information, please contact: [phone] * Full Code (Latest Code Status on File) Date Activated Date Inactivated Comments 06/03/2020 2:30 PM 06/04/2020 4:20 PM * Full Code Date Activated Date Inactivated Comments 02/11/2020 4:21 PM 02/12/2020 5:57 PM Care Teams Automatic Pilot Mechanic Relationship Specialty Start Date End Date Marie Baez NP [address] [place] [id number] PCP - General Nurse Practitioner 09/30/24 Joelle Williamson DNP Nurse Practitioner Neurology 06/04/20
--- OUTSIDE RECORDS SUMMARY | 2025-03-01 12:43 | XMS_ITS | Clinical Summary ---
Author Organization [facility] [employer] Address [address] [place] [address] Care Team Providers Care Graphic Art Technician Name Role Phone Marie Baez Primary Care Provider [phone] Source Comments [facility] [employer],non-owned Affiliates and Associated Physician Practices is amultiple site organization consisting of ambulatory clinics and hospital sitesin [place], [place], [place] and [place]. This disclosure is being madepursuant to the Care Everywhere program and may not contain all information available regarding this patient. Last updated 18.[facility] Allergies Active Allergy Reactions Criticality Noted Date Comments Sulfamethoxazole W-Trimethoprim Urticaria Medium 06/02 Medications * This document contains information received from the source organization and may not represent a complete record from that organization. * Be aware that medications may not be up to date on this document. Alwaysverify current medications with the patient. valACYclovir (VALTREX) 500 MG tablet Take 1 (one) tablet by mouth once daily 08/07/2021 Active doxycycline hyclate 100 MG tablet Take 1 (one) tablet by mouth 2 times daily 12/20/2021 Active lamoTRIgine (LaMICtal) 150 MG tablet Take 1 (one) tablet by mouth 2 times daily 01/23/2023 Active clobetasol (Temovate) 0.05 % ointmentIndicat ions:Other psoriasis Apply to affected area twice daily. 30 days supply. 60 g 3 02/18/2023 Active ketoconazole (Nizoral) 2 % creamIndication s:Other seborrheic dermatitis Apply to affected areas on face twice daily. 30 days supply. 30 g 3 02/18/2023 Active cyproheptadine (Periactin) 4 MG tablet 02/04/2024 Active prazosin (Minipress) 2 MG capsule TAKE 1 CAPSULE BY MOUTH EVERY DAY AT BEDTIME 01/08/2023 Active amitriptyline (Elavil) 10 MG tablet Take 7.5 (seven and one-half) tablets by mouth at bedtime 12/09/2024 Active Active Problems Problem Noted Date Diagnosed Date Incontinence of feces, unspecified fecal inconti nence type 12/08/2024 Assessment & Plan (12/09/2024 3:05 PM CDT): 38 year old female with PMHx of anxiety and unspecified mood disorder presents with 5 months of intermittent fecal incontinence while sleeping, slow speech, confusion, and running into obstacles. The incontinence began 5 months ago, resolved after restarting amitriptyline for 2 months, recurred two months ago for a short period, resolved for another 2 months, then has been ongoing for the last 2 weeks with one episode of daytime fecal incontinence while standing. Patient presented for further workup of recurrent fecal incontinence for the last 2 weeks and worsening speech difficulties for the last week. Labs WNL, per ED no saddle anesthesia and normal rectal tone. Neurological examination is reassuring. Brain, cervical, and thoracic MRI did not show an acute neurological process to explain her symptoms. KUB was not concerning for constipation that could contribute to overflow incontinence. As physical examination and diagnostics are reassuring from a neurological standpoint, a GI or psychiatric component may be contributing to her symptoms. - Recommend outpatient follow up with GI to evaluate other possible causes - Recommend continued follow up with psychiatry for anxiety control Accidental fentanyl overdose 02/11/202305/2023 High risk medications (not anticoagulants) long- term use 02/11/2023 Other psoriasis 06/07/2020 Assessment & Plan (06/07/2020 11:29 AM ACCOUNTS MANAGER): - previously on Stelara 2013 - Off and on MTX stopped most recently 11/2019, cumulative dose 1550 - controlled on exam today - dovonex PRN Other seborrheic dermatitis 06/07/2020 Assessment & Plan (06/07/2020 11:29 AM ACCOUNTS MANAGER): - severe involving glabella, eyebrows, and NLF - Rarely washes face, infrequent showering, scalp scale - Keto cream, shampoo, and elidel Elevated liver function tests 06/03/2020 Overview (02/11/2023): Last Assessment & Plan: Could be due to infection and sepsis. Patient states she she did use IV drug once and was told she has hepatitis-C. Will check a hepatitis C antibody. Patient was hep B and hep C negative in 2019. Seizures, generalized convulsive 04/26/2020 02/11/2023 Overview (02/11/2023): Last Assessment & Plan: With possible breakthrough seizure. Patient states she has an appointment with Neurology this Friday. Neurology has been consulted. Seizure precautions. Anxiety 04/25/2020 02/11/2023 Dystonia 06/24/2019 02/11/2023 ADHD (attention deficit hyperactivity disorder) 12/14/2018 02/11/2023 Overview (02/11/2023): Last Assessment & Plan: Holding Vyvanse & Ritalin -resume previous home medications at discharge Tardive dyskinesia 12/14/2018 02/11/2023 Overview (02/11/2023): Note: from abrupt discontinuation of Abilify Note: from abrupt discontinuation of Abilify Paresthesia 09/14/2018 Bipolar affective disorder, currently active 08/2017 Depression 11/03/2017 Vitamin D deficiency 09/23/2012 02/11/2023 Overview (02/11/2023): Note: Vitamin D def - 26 on 02/12/19 Note: Vitamin D def - 26 on 02/12/19 Encounters Date Type Department Care Team Description 12/08/2024 4:17 PM CDT - 12/09/2024 3:36 PM CDT Hospital Encounter [facility] AC[facility] [address] [place] [address] Alfonzo Alexander MD Jones, Ronald L, MD Neurology Discharge Disposition: Home or Self Care 12/08/2024 Travel from Last 3 Months Immunizations Immunization Administration Dates Next Due INFLUENZA VACCINE 03/26/2022,05/10/2019 Family History Medical History Relation Name Comments None Known Brother None Known Father None Known Maternal Aunt None Known Maternal Grandfather Cancer - Breast Maternal Grandmother None Known Maternal Uncle None Known Mother None Known Other None Known Paternal Aunt None Known Paternal Grandfather Eczema Paternal Grandmother None Known Paternal Uncle None Known Sister Asthma Neg Hx CVA Neg Hx Cancer - Other Neg Hx Cancer - Skin, Melanoma Neg Hx Cancer - Skin, Non Melanoma Neg Hx Hemophilia Neg Hx Psoriasis Neg Hx Relation Name Status Comments Brother Father Maternal Aunt Maternal Grandfather Maternal Grandmother Maternal Uncle Mother Other Paternal Aunt Paternal Grandfather Paternal Grandmother Paternal Uncle Sister Social History Tobacco Use Types Packs/Day Years Used Date Smoking Tobacco: Every Day Cigarettes Smokeless Tobacco: Never Tobacco Cessation:Ready to Q uit: Not Asked; Counseling Given: Not Answered Alcohol Use Standard Drinks/Week Comments No 0 (1 standard drink = 0.6 oz pur e alcohol) AUDIT-C Answer Date Recorded Q1: How often do you have a drink containing alc ohol? Monthly or less 12/08/2024 Q2: How many drinks containi ng alcohol do you have on a typical day when you are drinking? 1 or 2 12/08/2024 Q3: How often do you have si x or more drinks on one occasion? Never 12/08/2024 Overall Financial Resource Strain (CARDIA) Answe r Date Recorded How hard is it for you to pa y for the very basics like food, housing, medical care, and heating? Very hard 12/08/2024 PHQ-2 Answer Date Recorded PHQ2 TOTAL SCORE 1 09/28/2020 [facility] - Occupational Stress Questionnaire Answer Date Recorded Do you feel stress - tense, restless, nervous, or anxious, or unable to sleep at night because your mind is troubled all the time - these days? Very much 12/08/2024 Hunger Vital Sign Answer Date Recorded Within the past 12 months, y ou worried that your food would run out before you got the money to buy more. Never true Within the past 12 months, t he food you bought just didn't last and you didn't have money to get more. Sometimes true 01/2025 PRAPARE - Transportation Answer Date Re corded In the past 12 months, has l ack of transportation kept you from medical appointments or from getting medications? No 01/2025 In the past 12 months, has l ack of transportation kept you from meetings, work, or from getting things needed for daily living? No 12/08/2024 Housing Stability Vital Sign Answer Nam e Recorded In the last 12 months, was t here a time when you were not able to pay the mortgage or rent on time? Yes 12/08/2024 In the past 12 months, how m any times have you moved where you were living? 0 12/08/2024 At any time in the past [address] [facility], were you homeless or living in a correction (including now)? No 12/08/2024 Comments No Sex and Gender Information Value Date Recorded Sex Assigned at Female 10/23/2022 5:56 PM CDT Legal Sex Female 6:28 PM ACCOUNTS MANAGER Gender Identity Female 10/23/2022 5:56 PM CDT Sexual Orientation Straight 10/23/2022 5: 56 PM CDT Last Filed Vital Signs Vital Sign Reading Time Taken Comments Blood Pressure 121/87 12/09/2024 11:43 AM CDT Pulse 112 12/09/2024 11:43 AM CDT Temperature 36.9 C (98.4 F) 12/09/2024 11:43 AM CDT Respiratory Rate 20 12/09/2024 11:43 AM CDT Oxygen Saturation 96% 12/09/2024 11:43 AM CDT Inhaled Oxygen Concentration - - Weight 61 kg (134 lb 6.4 oz) 12/08/2024 11:30 PM CDT Height 165.1 cm (5' 5) 12/08/2024 11:30 PM CDT Body Mass Index 22.37 12/08/2024 11:30 PM CDT Plan of Treatment Health Maintenance Due Date Last Done Comments MAMMOGRAM 1984 DTAP/TDAP/TD VACCINES (1 - Tdap) 12/13/2003 HEPATITIS B VACCINE (1 of 3 - 19+ 3-dose series) 12/13/2003 PNEUMOCOCCAL VACCINE (1 of 2 - PCV) 12/13/2003 PAP SMEAR 2005 HPV VACCINE (1 - 3-dose SCDM series) 12/13/2011 LIPID TESTING 06/22/2023 06/22/2018 COVID-19 VACCINE (1 - 2023- season) 2025 INFLUENZA VACCINE (#1) 2025 2, 05/10/2019, 03/31/2019, Additional history exists ZOSTER VACCINE (1 of 2) 2034 HIV SCREENING Completed 11/11/2017 HEPATITIS C SCREENING Completed 07/19/2021 , 08/28/2018, 06/22/2018 HIB VACCINE Aged Out No longer eligi ble based on patient's age to complete this topic MENINGOCOCCAL (Group B) VACCINE SHARED DECISION-MAKING Aged Out No longer eligible based on patient's age to complete this topic MENINGOCOCCAL GROUPS A/C/Y/W VACCINE Aged Out No longer eligible based on patient's age to complete this topic Procedures Procedure Name Priority Date/Time Associated Diagnosis Comments XR ABDOMEN KUB PORTABLE STAT 12/09/2024 1:10 PM CDT Incontinence of feces, unspecified fecal incontinence type Confusion CARDIAC EKG ORDER 12/09/2024 10: 54 AM CDT FOLATE Routine 12/09/2024 9:41 AM CDT VITAMIN B12 Routine 12/09/2024 9:41 AM CDT VITAMIN D 25-HYDROXY Routine 12/09/2024 9:41 AM CDT URINE DRUG SCREEN IMMUNOASSAY STAT 12/09/2024 2:54 AM CDT MRI BRAIN WWO CONTRAST STAT 12/09/2024 2:50 AM CDT Incontinence of feces, unspecified fecal incontinence type MRI THORACIC SPINE WWO CONT STAT 12/09/2024 2:50 AM CDT Incontinence of feces, unspecified fecal incontinence type MRI CERVICAL SPINE WWO CONT STAT 12/09/2024 2:50 AM CDT Incontinence of feces, unspecified fecal incontinence type TROPONIN-I HIGH SENSITIVE REFLEX 1HOUR Timed 12/08/2024 6:[address] HEAD WO CONTRAST STAT 12/08/2024 2 :11 PM CDT Acute nonintractable headache, unspecified headache type URINALYSIS REFLEX MICROSCOPIC REFLEX CULTURE STAT 12/08/2024 12:56 PM CDT HCG BETA BLOOD QUANTITATIVE STAT 12/08/2024 12:51 PM CDT TSH REFLEX FREE T4 STAT 12/08/2024 12 :51 PM CDT TROPONIN-I HIGH SENSITIVE BASELINE + 1HR STAT 12/08/2024 12:51 PM CDT MAGNESIUM BLOOD STAT 12/08/2024 12:51 PM CDT COMPREHENSIVE METABOLIC PANEL STAT 12/08/2024 12:51 PM CDT CBC W AUTO DIFFERENTIAL STAT 12/08/2024 12:51 PM CDT EKG 12-LEAD STAT 12/08/2024 12:50 PM CDT Tachycardia HEPATITIS C AB W/RFLX TO HCV RNA QN PCR Routine 07/19/2021 10:59 AM ACCOUNTS MANAGER High risk medications (not anticoagulants) long-term use HIV-1 HIV-2 ANTIGEN/ANTIBODY W RFLX Routine 11/11/2017 10:56 AM CDT Medication management from Last 3 Months or Most Recently Relevant to Health Maintenance Results * XR Abdomen Kub Portable (12/09/2024 1:10 PM CDT) Anatomical Region Laterality Modality Abdomen Digital Radiogra phy 12/09/2024 2:52 PM CDT Impressions 12/09/2024 4:29 PM CDT IMPRESSION: Nonobstructive bowel gas pattern. Moderate colonic stool burden. Report dictated by Ede Hamm MD (resident hall director). Kenji Felix MD have personally reviewed and interpreted this examination/study. > Interpreting Provider: Kneji Salmon MD on 12/09/2024 4:29 PM Narrative 12/09/2024 4:29 PM CDT EXAMINATION: XR ABDOMEN KUB PORTABLE DATE/TIME OF EXAM: 12/09/2024 1:10 PM, LOCATION [facility] HISTORY: R15.9: Incontinence of feces, unspecified fecal incontinence type R41.0: Confusion Constipation COMPARISON: No prior study is available for comparison. FINDINGS: There are no abnormally dilated bowel loops. Moderate colonic stool burden throughout the entire colon. Free intraperitoneal air is not adequately assessed on supine radiographs. The visible osseous structures are intact. The lung bases are normal. Procedure Note Kenji Salmon MD - 12/09/2024 EXAMINATION: XR ABDOMEN KUB PORTABLE DATE/TIME OF EXAM: 12/09/2024 1:10 PM, LOCATION [facility] HISTORY: R15.9: Incontinence of feces, unspecified fecal incontinencetype R41.0: Confusion Constipation COMPARISON: No prior study is available for comparison. FINDINGS: There are no abnormally dilated bowel loops. Moderate colonic stoolburden throughout the entire colon. Free intraperitoneal air is not adequately assessed on supine radiographs. The visible osseous structures areintact. The lung bases are normal. IMPRESSION: Nonobstructive bowel gas pattern. Moderate colonic stool burden. Report dictated by Ede Hamm MD (resident hall director). Kenji Felix MD have personally reviewed and interpreted this examination/study. > Interpreting Provider: Kenji Salmon MD on 12/09/2024 4:29 PM us Enrique Salas MD DIAGNOSTIC IMAGING ORDERABLES Final Result * CARDIAC EKG ORDER (12/09/2024 10:54 AM CDT) Narrative 12/09/2024 10:54 AM CDT Ordered by an unspecified provider. us Scanned Document CARDIAC SERVICES ORDERABLES Fin al Result * VITAMIN D 25-HYDROXY (12/09/2024 9:41 AM CDT) Vitamin D, 25 Hydroxy 31.2 30.0 - 80.0 ng/mL 12/09/2024 10:59 AM CDT [facility] Comment: The recommendations for 25-Hydroxy Vitamin D clinical decision points are as follows: Deficient: <20.0 ng/mL Insufficient: 20.0 - 29.9 ng/mL Sufficient: 30.0 - 100.0 ng/mL Potential Toxicity: >100 ng/mL Reference: The Endocrine Society Clinical Practice Guidelines. 2011 If the 25-Hydroxy Vitamin D results are inconsitent with clinical evidence, it is recommended that follow-up testing using a method such as LC/MS/MS be performed to confirm the result. Blood BLOOD SPECIMEN / Unknown Lab Venipuncture / Unknown 12/09/2024 9:41 AM CDT 12/09/2024 9:52 AM CDT us Enrique Salas MD LAB - CHEMISTRY ORDERABLES Fin al Result [facility] [address] [place] [id number], [facility] [phone] * FOLATE (12/09/2024 9:41 AM CDT) Folate 8.9 7.0 - 31.4 ng/mL 12/09/2024 10:59 AM CDT [facility] Blood BLOOD SPECIMEN / Unknown Lab Venipuncture / Unknown 12/09/2024 9:41 AM CDT 12/09/2024 9:52 AM CDT Enrique Salas MD LAB - CHEMISTRY ORDERABLES Fin al Result [address] [address], [place] [phone] * VITAMIN B12 (12/09/2024 9:41 AM CDT) [facility] Vitamin B12 788 213 - 816 pg/mL 12/09/2024 10:59 AM [facility] Blood BLOOD SPECIMEN / Unknown Lab Venipuncture / Unknown 12/09/2024 9:41 AM CDT 12/09/2024 9:52 AM CDT us Enrique Salas MD LAB - CHEMISTRY ORDERABLES Fin al Result Performing Organization Address [facility] Co de Phone Number [address] [address], [place] [phone] * (ABNORMAL) URINE DRUG SCREEN IMMUNOASSAY (12/09/2024 2:54 AM CDT) [facility] Amphetamines Screen Urine Negative Negative : < 1000 ng/mL 12/09/2024 3:29 AM [facility] Barbiturates Screen Urine Negative Negative : < 200 ng/mL 12/09/2024 3:29 AM [facility] Benzodiazepine Screen Urine Positive(A) Negative : < 200 ng/mL 12/09/2024 3:29 AM [facility] Comment: Positive urine benzodiazepine screening results should be confirmed by another generally accepted non-immunological method such as gas chromatography or mass spectrometry. Opiates Urine Negative Negative : < 300 ng/mL 12/09/2024 3:29 AM [facility] Cocaine Metabolites Urine Negative Negative : < 300 ng/mL 12/09/2024 3:29 AM [facility] Phencyclidine Screen Urine Negative Negative : < 25 ng/ml 12/09/2024 3:29 AM [facility] Cannabinoids Screen Urine Negative Negative : <50 ng/mL 12/09/2024 3:29 AM [facility] Methadone Screen Urine Negative Negative : < 300 ng/mL 12/09/2024 3:29 AM [facility] Fentanyl Screen Urine Negative Negative : <1.5 ng/mL 12/09/2024 3:29 AM CDT [facility] Urine URINE / Unknown Collection / Unknown 12/09/2024 2:54 AM CDT 12/09/2024 3:04 AM CDT Narrative [facility] - 12/09/2024 3:29 AM CDT The Urine Toxicology Screening Panel does not screen for Propoxyphene, Meprobamate, Carisoprodol, Trazodone, ejqt-wgm-lmoprgj medications and/or volatiles (Acetone, Isopropanol, Methanol or Ethylene Glycol). Ethanol, Salicylate, Acetaminophen, Tricyclic Antidepressants and several therapeutic drugs may be individually assayed in serum or plasma specimen. Toxicology testing by the [facility] is an aid to medical diagnosis and treatment of patients. No documented chain of custody was maintained. Results are intended to be used for clinical purposes only. Alfonzo Alexander MD LAB - URINE CHEMISTRY ORDERABLES Final Result Performing Organization Address City/State/[facility] Co de Phone Number [facility] [address] [place] [address], [facility] [phone] * MRI Thoracic Spine Wwo Cont (12/09/2024 2:50 AM CDT) Anatomical Region Laterality Modality Spine Magnetic Resonan ce 12/09/2024 8:23 AM CDT Impressions 12/09/2024 11:54 AM CDT IMPRESSION: MRI Brain: 1.Normal MRI of the brain without evidence of demyelinating disease. 2.No enhancing lesions. MRI Cervical spine: 1.Degenerative changes most significant at C5-C6 resulting in akwx-vb-[id number] central canal stenosis with ventral cord abutment. There is mild neural foraminal stenosis at C4-C5 and C5-C6 as described above. 2.No evidence of demyelinating disease in the cervical spine. 3.No enhancing lesions identified. MRI Thoracic spine: 1. No evidence of demyelinating disease in the thoracic spine. 2. No significant degenerative change in the thoracic spine. > Dictated by Alfonzo Domingo MD (resident hall director). > Dictated by Alfnozo Domingo (Diet Consultant) 12/09/2024 8:23 AM Jet Felix MD have personally reviewed and interpreted this examination/study. > Interpreting Provider: Jet Camacho MD on 12/09/2024 11:54 AM Narrative 12/09/2024 11:54 AM CDT PROCEDURE: MRI BRAIN WWO CONTRAST, MRI THORACIC SPINE WWO CONT, MRI CERVICAL SPINE WWO CONT, DATE/TIME OF EXAM: 12/09/2024 3:47 AM, LOCATION [facility] INDICATION: R15.9: Incontinence of feces, unspecified fecal incontinence type ADDITIONAL CLINICAL INFORMATION: Ordering Provider Reason For Exam: MS (accession [id number]), demyelinating disease (accession [id number]), demyelinating disease (accession [id number]) Technologist Note: Does the patient have a pacemaker or defibrillator?->No Does the patient have metal implants or stents?->No Additional: None. CONTRAST: GADOBUTROL 1 MMOL/ML IV SSM SO:6 mL EXAMINATION: Magnetic resonance imaging (MRI) of the brain, cervical, and thoracic spine without and with contrast TECHNIQUE: MRI of the brain was performed prior to and following the uneventful administration of 6ml Gadavist intravenous contrast according to a demyelination protocol. MRI of the cervical and thoracic spines were performed with and without contrast according to standard protocol. COMPARISON: CT head from 12/08/2024 FINDINGS: MRI brain: No evidence of acute or chronic hemorrhage is identified. No evidence of acute cerebral infarction is seen. The ventricles are of normal size, shape, and morphology. No mass lesion, edema, mass effect, or midline shift is seen. No enhancing lesions are identified. The corpus callosum and sella appear normal. The posterior fossa, brainstem, and craniocervical junction appear normal. The orbits appear normal. There is paranasal sinus disease involving the maxillary sinuses. The mastoid air cells are clear. Normal flow voids are demonstrated in the carotid arteries and basilar artery. The calvarium and visualized cervical spine appear gross unremarkable. Cervical spine: There is straightening of the cervical spine with mild kyphosis at C5-C6. Vertebral bodies are normal in height without evidence of compression fractures. Decreased T1 bone marrow signal is a nonspecific finding but can be seen in the setting of anemia. The craniocervical junction and visualized portions of the posterior fossa appear normal. The spinal cord appears normal. No abnormal enhancement is identified. Moderate disc space height loss at C5-C6. No soft tissue abnormality is identified. Normal flow voids are identified in the vertebral arteries. Small right posterior disc protrusion at C4-C5 resulting in mild right neural foraminal stenosis. There is disc bulge at C5-C6 with mild thickening of the posterior longitudinal ligament which results in mild to moderate central canal stenosis with ventral cord abutment. There is mild right neural foraminal stenosis at C5-C6. No significant degenerative change at the other levels. Multilevel minimal facet arthropathy. Multilevel mild uncovertebral joint osteoarthritis most significant at C4-C5 and C5-C6 Thoracic spine: Mild limitations secondary to motion artifact. The alignment is normal. Vertebral bodies are normal in height without evidence of compression fractures. Small T1 and T2 hyperintensities in the left side of the T2 and T3 vertebral bodies which do not enhance and may represent focal fatty deposits. Small T2 bright enhancing focus in the left posterior T9 vertebral body favored to be benign and may represent a hemangioma. Decreased T1 bone marrow signal is a nonspecific finding but can be seen in the setting, in the appropriate clinical setting. The spinal cord appears normal. No abnormal enhancement is identified. The intervertebral discs appear normal. No high-grade central canal stenosis is seen. The facets appear normal. No significant neural foraminal stenosis is seen. No soft tissue abnormality is identified. Procedure Note Jet Camacho MD - 12/09/2024 PROCEDURE: MRI BRAIN WWO CONTRAST, MRI THORACIC SPINE WWO CONT, MRI CERVICAL SPINE WWO CONT, DATE/TIME OF EXAM: 12/09/2024 3:47 AM, LOCATION [facility] INDICATION: R15.9: Incontinence of feces, unspecified fecal incontinence type ADDITIONAL CLINICAL INFORMATION: Ordering Provider Reason For Exam: MS (accession [id number]),demyelinating disease (accession [id number]), demyelinating disease ([id number]) Technologist Note: Does the patient have a pacemaker ordefibrillator?->No Does the patient have metal implants or stents?->No Additional: None. CONTRAST: GADOBUTROL 1 MMOL/ML IV SSM SO:6 mL EXAMINATION: Magnetic resonance imaging (MRI) of the brain, cervical,and thoracic spine without and with contrast TECHNIQUE: MRI of the brain was performed prior to and following the uneventful administration of 6ml Gadavist intravenous contrast accordingto a demyelination protocol. MRI of the cervical and thoracic spines were performed with and without contrast according to standard protocol. COMPARISON: CT head from 12/08/2024 FINDINGS: MRI brain: No evidence of acute or chronic hemorrhage is identified. No evidence of acute cerebral infarction is seen. The ventricles are of normal size, shape, and morphology. No mass lesion, edema, mass effect, or midlineshift is seen. No enhancing lesions are identified. The corpus callosum andsella appear normal. The posterior fossa, brainstem, and craniocervicaljunction appear normal. The orbits appear normal. There is paranasal sinus disease involving the maxillary sinuses. The mastoid air cells are clear. Normal flow voidsare demonstrated in the carotid arteries and basilar artery. The calvariumand visualized cervical spine appear gross unremarkable. Cervical spine: There is straightening of the cervical spine with mild kyphosis atC5-C6. Vertebral bodies are normal in height without evidence of compression fractures. Decreased T1 bone marrow signal is a nonspecific finding butcan be seen in the setting of anemia. The craniocervical junction and visualized portions of the posterior fossa appear normal. The spinalcord appears normal. No abnormal enhancement is identified. Moderate discspace height loss at C5-C6. No soft tissue abnormality is identified. Normalflow voids are identified in the vertebral arteries. Small right posterior disc protrusion at C4-C5 resulting in mild right neural foraminal stenosis. There is disc bulge at C5-C6 with mild thickening of the posterior longitudinal ligament which results in mildto moderate central canal stenosis with ventral cord abutment. There ismild right neural foraminal stenosis at C5-C6. No significant degenerative change at the other levels. Multilevel minimal facet arthropathy. Multilevel mild uncovertebral joint osteoarthritis most significant at C4-C5 and C5-C6 Thoracic spine: Mild limitations secondary to motion artifact. The alignment is normal. Vertebral bodies are normal in height without evidence of compression fractures. Small T1 and T2 hyperintensities inthe left side of the T2 and T3 vertebral bodies which do not enhance and may represent focal fatty deposits. Small T2 bright enhancing focus in theleft posterior T9 vertebral body favored to be benign and may represent a hemangioma. Decreased T1 bone marrow signal is a nonspecific finding but can be seen in the setting, in the appropriate clinical setting. Thespinal cord appears normal. No abnormal enhancement is identified. The intervertebral discs appear normal. No high-grade central canal stenosis is seen. The facets appear normal. No significant neuralforaminal stenosis is seen. No soft tissue abnormality is identified. IMPRESSION: MRI Brain: 1.Normal MRI of the brain without evidence of demyelinating disease. 2.No enhancing lesions. MRI Cervical spine: 1.Degenerative changes most significant at C5-C6 resulting in bazg-pf-tulwsdgm central canal stenosis with ventral cord abutment.There is mild neural foraminal stenosis at C4-C5 and C5-C6 as described above. 2.No evidence of demyelinating disease in the cervical spine. 3.No enhancing lesions identified. MRI Thoracic spine: 1. No evidence of demyelinating disease in the thoracic spine. 2. No significant degenerative change in the thoracic spine. > Dictated by Alfonzo Domingo MD (resident hall director). > Dictated by Alfonzo Domingo (Diet Consultant) 12/09/2024 8:23 AM Jet Felix MD have personally reviewed and interpretedthis examination/study. > Interpreting Provider: Jet Camacho MD on 12/09/2024 11:54 AM Alfonzo Alexander MD MR ORDERABLES Final Result * MRI Cervical Spine Wwo Cont (12/09/2024 2:50 AM CDT) Anatomical Region Laterality Modality Spine Magnetic Resonan ce 12/09/2024 8:23 AM CDT Impressions 12/09/2024 11:54 AM CDT IMPRESSION: MRI Brain: 1.Normal MRI of the brain without evidence of demyelinating disease. 2.No enhancing lesions. MRI Cervical spine: 1.Degenerative changes most significant at C5-C6 resulting in kpgs-jm-oicinagf central canal stenosis with ventral cord abutment. There is mild neural foraminal stenosis at C4-C5 and C5-C6 as described above. 2.No evidence of demyelinating disease in the cervical spine. 3.No enhancing lesions identified. MRI Thoracic spine: 1. No evidence of demyelinating disease in the thoracic spine. 2. No significant degenerative change in the thoracic spine. > Dictated by Alfonzo Domingo MD (resident hall director). > Dictated by Alfonzo Domingo (Diet Consultant) 12/09/2024 8:23 AM Jet Felix MD have personally reviewed and interpreted this examination/study. > Interpreting Provider: Jet Camacho MD on 12/09/2024 11:54 AM Narrative 12/09/2024 11:54 AM CDT PROCEDURE: MRI BRAIN WWO CONTRAST, MRI THORACIC SPINE WWO CONT, MRI CERVICAL SPINE WWO CONT, DATE/TIME OF EXAM: 12/09/2024 3:47 AM, LOCATION [facility] INDICATION: R15.9: Incontinence of feces, unspecified fecal incontinence type ADDITIONAL CLINICAL INFORMATION: Ordering Provider Reason For Exam: MS (accession [id number]), demyelinating disease (accession [id number]), demyelinating disease (accession [id number]) Technologist Note: Does the patient have a pacemaker or defibrillator?->No Does the patient have metal implants or stents?->No Additional: None. CONTRAST: GADOBUTROL 1 MMOL/ML IV SSM SO:6 mL EXAMINATION: Magnetic resonance imaging (MRI) of the brain, cervical, and thoracic spine without and with contrast TECHNIQUE: MRI of the brain was performed prior to and following the uneventful administration of 6ml Gadavist intravenous contrast according to a demyelination protocol. MRI of the cervical and thoracic spines were performed with and without contrast according to standard protocol. COMPARISON: CT head from 12/08/2024 FINDINGS: MRI brain: No evidence of acute or chronic hemorrhage is identified. No evidence of acute cerebral infarction is seen. The ventricles are of normal size, shape, and morphology. No mass lesion, edema, mass effect, or midline shift is seen. No enhancing lesions are identified. The corpus callosum and sella appear normal. The posterior fossa, brainstem, and craniocervical junction appear normal. The orbits appear normal. There is paranasal sinus disease involving the maxillary sinuses. The mastoid air cells are clear. Normal flow voids are demonstrated in the carotid arteries and basilar artery. The calvarium and visualized cervical spine appear gross unremarkable. Cervical spine: There is straightening of the cervical spine with mild kyphosis at C5-C6. Vertebral bodies are normal in height without evidence of compression fractures. Decreased T1 bone marrow signal is a nonspecific finding but can be seen in the setting of anemia. The craniocervical junction and visualized portions of the posterior fossa appear normal. The spinal cord appears normal. No abnormal enhancement is identified. Moderate disc space height loss at C5-C6. No soft tissue abnormality is identified. Normal flow voids are identified in the vertebral arteries. Small right posterior disc protrusion at C4-C5 resulting in mild right neural foraminal stenosis. There is disc bulge at C5-C6 with mild thickening of the posterior longitudinal ligament which results in mild to moderate central canal stenosis with ventral cord abutment. There is mild right neural foraminal stenosis at C5-C6. No significant degenerative change at the other levels. Multilevel minimal facet arthropathy. Multilevel mild uncovertebral joint osteoarthritis most significant at C4-C5 and C5-C6 Thoracic spine: Mild limitations secondary to motion artifact. The alignment is normal. Vertebral bodies are normal in height without evidence of compression fractures. Small T1 and T2 hyperintensities in the left side of the T2 and T3 vertebral bodies which do not enhance and may represent focal fatty deposits. Small T2 bright enhancing focus in the left posterior T9 vertebral body favored to be benign and may represent a hemangioma. Decreased T1 bone marrow signal is a nonspecific finding but can be seen in the setting, in the appropriate clinical setting. The spinal cord appears normal. No abnormal enhancement is identified. The intervertebral discs appear normal. No high-grade central canal stenosis is seen. The facets appear normal. No significant neural foraminal stenosis is seen. No soft tissue abnormality is identified. Procedure Note Jet Camacho MD - 12/09/2024 PROCEDURE: MRI BRAIN WWO CONTRAST, MRI THORACIC SPINE WWO CONT, MRI CERVICAL SPINE WWO CONT, DATE/TIME OF EXAM: 12/09/2024 3:47 AM, LOCATION [facility] INDICATION: R15.9: Incontinence of feces, unspecified fecal incontinence type ADDITIONAL CLINICAL INFORMATION: Ordering Provider Reason For Exam: MS (accession [id number]),demyelinating disease (accession [id number]), demyelinating disease ([id number]) Technologist Note: Does the patient have a pacemaker ordefibrillator?->No Does the patient have metal implants or stents?->No Additional: None. CONTRAST: GADOBUTROL 1 MMOL/ML IV SSM SO:6 mL EXAMINATION: Magnetic resonance imaging (MRI) of the brain, cervical,and thoracic spine without and with contrast TECHNIQUE: MRI of the brain was performed prior to and following the uneventful administration of 6ml Gadavist intravenous contrast accordingto a demyelination protocol. MRI of the cervical and thoracic spines were performed with and without contrast according to standard protocol. COMPARISON: CT head from 12/08/2024 FINDINGS: MRI brain: No evidence of acute or chronic hemorrhage is identified. No evidence of acute cerebral infarction is seen. The ventricles are of normal size, shape, and morphology. No mass lesion, edema, mass effect, or midlineshift is seen. No enhancing lesions are identified. The corpus callosum andsella appear normal. The posterior fossa, brainstem, and craniocervicaljunction appear normal. The orbits appear normal. There is paranasal sinus disease involving the maxillary sinuses. The mastoid air cells are clear. Normal flow voidsare demonstrated in the carotid arteries and basilar artery. The calvariumand visualized cervical spine appear gross unremarkable. Cervical spine: There is straightening of the cervical spine with mild kyphosis atC5-C6. Vertebral bodies are normal in height without evidence of compression fractures. Decreased T1 bone marrow signal is a nonspecific finding butcan be seen in the setting of anemia. The craniocervical junction and visualized portions of the posterior fossa appear normal. The spinalcord appears normal. No abnormal enhancement is identified. Moderate discspace height loss at C5-C6. No soft tissue abnormality is identified. Normalflow voids are identified in the vertebral arteries. Small right posterior disc protrusion at C4-C5 resulting in mild right neural foraminal stenosis. There is disc bulge at C5-C6 with mild thickening of the posterior longitudinal ligament which results in mildto moderate central canal stenosis with ventral cord abutment. There ismild right neural foraminal stenosis at C5-C6. No significant degenerative change at the other levels. Multilevel minimal facet arthropathy. Multilevel mild uncovertebral joint osteoarthritis most significant at C4-C5 and C5-C6 Thoracic spine: Mild limitations secondary to motion artifact. The alignment is normal. Vertebral bodies are normal in height without evidence of compression fractures. Small T1 and T2 hyperintensities inthe left side of the T2 and T3 vertebral bodies which do not enhance and may represent focal fatty deposits. Small T2 bright enhancing focus in theleft posterior T9 vertebral body favored to be benign and may represent a hemangioma. Decreased T1 bone marrow signal is a nonspecific finding but can be seen in the setting, in the appropriate clinical setting. Thespinal cord appears normal. No abnormal enhancement is identified. The intervertebral discs appear normal. No high-grade central canal stenosis is seen. The facets appear normal. No significant neuralforaminal stenosis is seen. No soft tissue abnormality is identified. IMPRESSION: MRI Brain: 1.Normal MRI of the brain without evidence of demyelinating disease. 2.No enhancing lesions. MRI Cervical spine: 1.Degenerative changes most significant at C5-C6 resulting in mchu-pt-qgqukduv central canal stenosis with ventral cord abutment.There is mild neural foraminal stenosis at C4-C5 and C5-C6 as described above. 2.No evidence of demyelinating disease in the cervical spine. 3.No enhancing lesions identified. MRI Thoracic spine: 1. No evidence of demyelinating disease in the thoracic spine. 2. No significant degenerative change in the thoracic spine. > Dictated by Alfonzo Domingo MD (resident hall director). > Dictated by Alofnzo Domingo (Diet Consultant) 12/09/2024 8:23 AM Jet Felix MD have personally reviewed and interpretedthis examination/study. > Interpreting Provider: Jet Camacho MD on 12/09/2024 11:54 AM Alfonzo Alexander MD MR ORDERABLES Final Result * MRI Brain Wwo Contrast (12/09/2024 2:50 AM CDT) Anatomical Region Laterality Modality Head Magnetic Resonan ce 12/09/2024 8:2 3 AM CDT Impressions 12/09/2024 11:54 AM CDT IMPRESSION: MRI Brain: 1.Normal MRI of the brain without evidence of demyelinating disease. 2.No enhancing lesions. MRI Cervical spine: 1.Degenerative changes most significant at C5-C6 resulting in xjhb-zy-nguxkiyi central canal stenosis with ventral cord abutment. There is mild neural foraminal stenosis at C4-C5 and C5-C6 as described above. 2.No evidence of demyelinating disease in the cervical spine. 3.No enhancing lesions identified. MRI Thoracic spine: 1. No evidence of demyelinating disease in the thoracic spine. 2. No significant degenerative change in the thoracic spine. > Dictated by Alfonzo Domingo MD (resident hall director). > Dictated by Alfonzo Domingo (Diet Consultant) 12/09/2024 8:23 AM Jet Felix MD have personally reviewed and interpreted this examination/study. > Interpreting Provider: Jet Camacho MD on 12/09/2024 11:54 AM Narrative 12/09/2024 11:54 AM CDT PROCEDURE: MRI BRAIN WWO CONTRAST, MRI THORACIC SPINE WWO CONT, MRI CERVICAL SPINE WWO CONT, DATE/TIME OF EXAM: 12/09/2024 3:47 AM, LOCATION [facility] INDICATION: R15.9: Incontinence of feces, unspecified fecal incontinence type ADDITIONAL CLINICAL INFORMATION: Ordering Provider Reason For Exam: MS (accession [id number]), demyelinating disease (accession [id number]), demyelinating disease (accession [id number]) Technologist Note: Does the patient have a pacemaker or defibrillator?->No Does the patient have metal implants or stents?->No Additional: None. CONTRAST: GADOBUTROL 1 MMOL/ML IV SSM SO:6 mL EXAMINATION: Magnetic resonance imaging (MRI) of the brain, cervical, and thoracic spine without and with contrast TECHNIQUE: MRI of the brain was performed prior to and following the uneventful administration of 6ml Gadavist intravenous contrast according to a demyelination protocol. MRI of the cervical and thoracic spines were performed with and without contrast according to standard protocol. COMPARISON: CT head from 12/08/2024 FINDINGS: MRI brain: No evidence of acute or chronic hemorrhage is identified. No evidence of acute cerebral infarction is seen. The ventricles are of normal size, shape, and morphology. No mass lesion, edema, mass effect, or midline shift is seen. No enhancing lesions are identified. The corpus callosum and sella appear normal. The posterior fossa, brainstem, and craniocervical junction appear normal. The orbits appear normal. There is paranasal sinus disease involving the maxillary sinuses. The mastoid air cells are clear. Normal flow voids are demonstrated in the carotid arteries and basilar artery. The calvarium and visualized cervical spine appear gross unremarkable. Cervical spine: There is straightening of the cervical spine with mild kyphosis at C5-C6. Vertebral bodies are normal in height without evidence of compression fractures. Decreased T1 bone marrow signal is a nonspecific finding but can be seen in the setting of anemia. The craniocervical junction and visualized portions of the posterior fossa appear normal. The spinal cord appears normal. No abnormal enhancement is identified. Moderate disc space height loss at C5-C6. No soft tissue abnormality is identified. Normal flow voids are identified in the vertebral arteries. Small right posterior disc protrusion at C4-C5 resulting in mild right neural foraminal stenosis. There is disc bulge at C5-C6 with mild thickening of the posterior longitudinal ligament which results in mild to moderate central canal stenosis with ventral cord abutment. There is mild right neural foraminal stenosis at C5-C6. No significant degenerative change at the other levels. Multilevel minimal facet arthropathy. Multilevel mild uncovertebral joint osteoarthritis most significant at C4-C5 and C5-C6 Thoracic spine: Mild limitations secondary to motion artifact. The alignment is normal. Vertebral bodies are normal in height without evidence of compression fractures. Small T1 and T2 hyperintensities in the left side of the T2 and T3 vertebral bodies which do not enhance and may represent focal fatty deposits. Small T2 bright enhancing focus in the left posterior T9 vertebral body favored to be benign and may represent a hemangioma. Decreased T1 bone marrow signal is a nonspecific finding but can be seen in the setting, in the appropriate clinical setting. The spinal cord appears normal. No abnormal enhancement is identified. The intervertebral discs appear normal. No high-grade central canal stenosis is seen. The facets appear normal. No significant neural foraminal stenosis is seen. No soft tissue abnormality is identified. Procedure Note Jet Camacho MD - 12/09/2024 PROCEDURE: MRI BRAIN WWO CONTRAST, MRI THORACIC SPINE WWO CONT, MRI CERVICAL SPINE WWO CONT, DATE/TIME OF EXAM: 12/09/2024 3:47 AM, LOCATION [facility] INDICATION: R15.9: Incontinence of feces, unspecified fecal incontinence type ADDITIONAL CLINICAL INFORMATION: Ordering Provider Reason For Exam: MS (accession [id number]),demyelinating disease (accession [id number]), demyelinating disease ([id number]) Technologist Note: Does the patient have a pacemaker ordefibrillator?->No Does the patient have metal implants or stents?->No Additional: None. CONTRAST: GADOBUTROL 1 MMOL/ML IV SSM SO:6 mL EXAMINATION: Magnetic resonance imaging (MRI) of the brain, cervical,and thoracic spine without and with contrast TECHNIQUE: MRI of the brain was performed prior to and following the uneventful administration of 6ml Gadavist intravenous contrast accordingto a demyelination protocol. MRI of the cervical and thoracic spines were performed with and without contrast according to standard protocol. COMPARISON: CT head from 12/08/2024 FINDINGS: MRI brain: No evidence of acute or chronic hemorrhage is identified. No evidence of acute cerebral infarction is seen. The ventricles are of normal size, shape, and morphology. No mass lesion, edema, mass effect, or midlineshift is seen. No enhancing lesions are identified. The corpus callosum andsella appear normal. The posterior fossa, brainstem, and craniocervicaljunction appear normal. The orbits appear normal. There is paranasal sinus disease involving the maxillary sinuses. The mastoid air cells are clear. Normal flow voidsare demonstrated in the carotid arteries and basilar artery. The calvariumand visualized cervical spine appear gross unremarkable. Cervical spine: There is straightening of the cervical spine with mild kyphosis atC5-C6. Vertebral bodies are normal in height without evidence of compression fractures. Decreased T1 bone marrow signal is a nonspecific finding butcan be seen in the setting of anemia. The craniocervical junction and visualized portions of the posterior fossa appear normal. The spinalcord appears normal. No abnormal enhancement is identified. Moderate discspace height loss at C5-C6. No soft tissue abnormality is identified. Normalflow voids are identified in the vertebral arteries. Small right posterior disc protrusion at C4-C5 resulting in mild right neural foraminal stenosis. There is disc bulge at C5-C6 with mild thickening of the posterior longitudinal ligament which results in mildto moderate central canal stenosis with ventral cord abutment. There ismild right neural foraminal stenosis at C5-C6. No significant degenerative change at the other levels. Multilevel minimal facet arthropathy. Multilevel mild uncovertebral joint osteoarthritis most significant at C4-C5 and C5-C6 Thoracic spine: Mild limitations secondary to motion artifact. The alignment is normal. Vertebral bodies are normal in height without evidence of compression fractures. Small T1 and T2 hyperintensities inthe left side of the T2 and T3 vertebral bodies which do not enhance and may represent focal fatty deposits. Small T2 bright enhancing focus in theleft posterior T9 vertebral body favored to be benign and may represent a hemangioma. Decreased T1 bone marrow signal is a nonspecific finding but can be seen in the setting, in the appropriate clinical setting. Thespinal cord appears normal. No abnormal enhancement is identified. The intervertebral discs appear normal. No high-grade central canal stenosis is seen. The facets appear normal. No significant neuralforaminal stenosis is seen. No soft tissue abnormality is identified. IMPRESSION: MRI Brain: 1.Normal MRI of the brain without evidence of demyelinating disease. 2.No enhancing lesions. MRI Cervical spine: 1.Degenerative changes most significant at C5-C6 resulting in pnxc-xa-rooowhdi central canal stenosis with ventral cord abutment.There is mild neural foraminal stenosis at C4-C5 and C5-C6 as described above. 2.No evidence of demyelinating disease in the cervical spine. 3.No enhancing lesions identified. MRI Thoracic spine: 1. No evidence of demyelinating disease in the thoracic spine. 2. No significant degenerative change in the thoracic spine. > Dictated by Alfonzo Domingo MD (resident hall director). > Dictated by Alfonzo Domingo (Diet Consultant) 12/09/2024 8:23 AM IJet MD have personally reviewed and interpretedthis examination/study. > Interpreting Provider: Jet Camacho MD on 12/09/2024 11:54 AM Alfonzo Alexander MD MR ORDERABLES Final Result * TROPONIN-I HIGH SENSITIVE REFLEX 1HOUR (12/08/2024 6:30 PM CDT) Troponin I High Sensitive <3 <=14 ng/L 12/08/2024 7:18 PM CDT [facility] Delta Troponin I HS 12/08/2024 7:18 PM CDT [facility] Comment:Delta value intentio nic not calculated. Baseline to 1 hour specimen collection interval exceeded. Blood BLOOD SPECIMEN / Unknown Venipuncture / Unknown 12/08/2024 6:30 PM CDT 12/08/2024 6:39 PM CDT Slime Ace PA-C LAB - CHEMISTRY ORDER FLORENTIN Final Result [facility] [address] [id number], [facility] [phone] * CT Head Wo Contrast (12/08/2024 2:11 PM CDT) Anatomical Region Laterality Modality Head Computed Tomogra phy 12/08/2024 2:14 PM CDT Impressions 12/08/2024 2:32 PM CDT IMPRESSION: 1.No acute intracranial hemorrhage, territorial infarct or herniation. The report is dictated by Julisa Dave Dr, MD (resident hall director) Fco Felix MD have personally reviewed and interpreted this examination/study. > Interpreting Provider: Fco Dixon MD on 12/08/2024 2:32 PM Narrative 12/08/2024 2:32 PM CDT PROCEDURE: CT HEAD WO CONTRAST, DATE/TIME OF EXAM: 12/08/2024 2:12 PM, LOCATION [facility] INDICATION: R51.9: Acute nonintractable headache, unspecified headache type ADDITIONAL CLINICAL INFORMATION: Ordering Provider Reason For Exam: headache Technologist Note: Additional: EXAMINATION: Computed tomography (CT) of the head without contrast TECHNIQUE: CT of the head was performed without contrast according to standard protocol. CT dose reduction technique was used, including Automated Exposure Control. COMPARISON: No prior study is available for comparison at the time of this dictation. FINDINGS: No acute intracranial hemorrhage or intra- or extra-axial fluid collections are identified. The ventricles are of normal size, shape, and morphology. The basal cisterns are patent. No mass effect or midline shift is seen. The osborn-white matter differentiation is normal. The orbits appear normal. The paranasal sinuses are clear. The mastoid air cells are clear. No soft tissue abnormality is identified. No acute calvarial fracture is identified. Procedure Note Fco Dixon MD - 12/08/2024 PROCEDURE: CT HEAD WO CONTRAST, DATE/TIME OF EXAM: 12/08/2024 2:12 PM, LOCATION [facility] INDICATION: R51.9: Acute nonintractable headache, unspecified headache type ADDITIONAL CLINICAL INFORMATION: Ordering Provider Reason For Exam: headache Technologist Note: Additional: EXAMINATION: Computed tomography (CT) of the head without contrast TECHNIQUE: CT of the head was performed without contrast according to standard protocol. CT dose reduction technique was used, including Automated Exposure Control. COMPARISON: No prior study is available for comparison at the time ofthis dictation. FINDINGS: No acute intracranial hemorrhage or intra- or extra-axial fluidcollections are identified. The ventricles are of normal size, shape, andmorphology. The basal cisterns are patent. No mass effect or midline shift is seen.The osborn-white matter differentiation is normal. The orbits appear normal. The paranasal sinuses are clear. The mastoidair cells are clear. No soft tissue abnormality is identified. No acute calvarial fracture is identified. IMPRESSION: 1.No acute intracranial hemorrhage, territorial infarct or herniation. The report is dictated by Julisa Dave Dr, MD (resident hall director) I, Fco Dixon MD have personally reviewed and interpreted this examination/study. > Interpreting Provider: Fco Dixon MD on 12/08/2024 2:32 PM Slime Ace PA-C CT ORDERABLES Final Result * URINALYSIS REFLEX MICROSCOPIC REFLEX CULTURE (12/08/2024 12:56 PM CDT) Color UA Yellow Yellow, Straw 12/08/2024 1:12 PM [facility] Clarity UA Clear Clear 12/08/2024 1:12 PM [facility] Glucose UA Normal Normal 12/08/2024 1:12 PM [facility] Bilirubin UA Negative Negative 12/08/2024 1:12 PM [facility] Ketone UA Negative Negative 12/08/2024 1:12 PM [facility] Specific [place] UA 1.012 1.005 - 1.030 12/08/2024 1:12 PM [facility] Blood UA Negative Negative 12/08/2024 1:12 PM [facility] pH UA 6.5 5.0 - 8.0 12/08/2024 1:12 PM [facility] Protein UA Negative Negative 12/08/2024 1:12 PM [facility] Urobilinogen UA Normal Normal mg/dL 12/08/2024 1:12 PM [facility] Nitrite UA Negative Negative 12/08/2024 1:12 PM [facility] Leukocyte Esterase UA Negative Negative 12/08/2024 1:12 PM [facility] Reflex Status Culture not indicated 12/08/2024 1:12 PM [facility] Urine Microscopy Urine microscopy not indicated 12/08/2024 1:12 PM [facility] Urine URINE SPECIMEN OBTAINED BY CLEAN CATCH PROCEDURE / Unknown Collection / Unknown 12/08/2024 12:56 PM CDT 12/08/2024 12:58 PM CDT Narrative [facility] - 12/08/2024 1:12 PM CDT Slime Ace PA-C LAB - URINALYSIS ORDE RABLES Final Result Performing Organization Address City/[facility]/ZIP Co de Phone Number [address] [address], [place] [phone] * TROPONIN-I HIGH SENSITIVE BASELINE + 1HR (12/08/2024 12:51 PM CDT) Pathologist [facility] [place] Troponin I High Sensitive <3 <=14 ng/L 12/08/2024 1:58 PM CDT [facility] Blood BLOOD SPECIMEN / Unknown Venipuncture / Unknown 12/08/2024 12:51 PM CDT 12/08/2024 1:21 PM CDT Slime Ace PA-C LAB - CHEMISTRY ORDER FLORENTIN Final Result Performing Organization Address [facility]/ZIP Co de Phone Number [address] [address], [place] [phone] * TSH REFLEX FREE T4 (12/08/2024 12:51 PM CDT) [facility] TSH 1.198 0.350 - 4.940 uIU/mL 12/08/2024 1:58 PM CDT [facility] Blood BLOOD SPECIMEN / Unknown Venipuncture / Unknown 12/08/2024 12:51 PM CDT 12/08/2024 1:21 PM CDT Slime Ace PA-C LAB - CHEMISTRY ORDER FLORENTIN Final Result [address] [address], [place] [phone] * (ABNORMAL) CBC W AUTO DIFFERENTIAL (12/08/2024 12:51 PM CDT) [facility] WBC 12.6(H) 4.0 - 10.7 x10E9/L 12/08/2024 1:30 PM [facility] RBC Count 4.36 3.90 - 5.20 x10E12/L 12/08/2024 1:30 PM [facility] Hemoglobin 13.6 11.9 - 15.8 g/dL 12/08/2024 1:30 PM [facility] Hematocrit 38.8 34.8 - 46.1 % 12/08/2024 1:30 PM [facility] MCV 89.0 80.0 - 98.0 fL 12/08/2024 1:30 PM [facility] MCH 31.2 26.7 - 33.6 pg 12/08/2024 1:30 PM [facility] MCHC 35.1 31.7 - 36.3 g/dL 12/08/2024 1:30 PM [facility] RDW-CV 12.9 11.3 - 14.8 % 12/08/2024 1:30 PM [facility] Platelet Count 301 150 - 420 x10E9/L 12/08/2024 1:30 PM [facility] MPV 8.4 7.8 - 11.4 fL 12/08/2024 1:30 PM [facility] Neutrophil % 81.0(H) 41.0 - 74.0 % 12/08/2024 1:30 PM [facility] Lymphocyte % 15.0(L) 17.0 - 47.0 % 12/08/2024 1:30 PM [facility] Monocyte % 2.5(L) 3.0 - 11.0 % 12/08/2024 1:30 PM [facility] Eosinophil % 0.3 0.0 - 7.0 % 12/08/2024 1:30 PM [facility] Basophil % 0.5 0.0 - 1.6 % 12/08/2024 1:30 PM [facility] Immature Granulocytes % 0.7 0.0 - 1.0 % 12/08/2024 1:30 PM [facility] Neutrophil Absolute 10.17(H) 1.60 - 7.50 x10E9/L 12/08/2024 1:30 PM [facility] Lymphocyte Absolute 1.89 1.00 - 4.40 x10E9/L 12/08/2024 1:30 PM [facility] Monocyte Absolute 0.31 0.15 - 1.00 x10E9/L 12/08/2024 1:30 PM [facility] Eosinophil Absolute 0.04 0.00 - 0.60 x10E9/L 12/08/2024 1:30 PM [facility] Basophil Absolute 0.06 0.00 - 0.13 x10E9/L 12/08/2024 1:30 PM [facility] Blood BLOOD SPECIMEN / Unknown Venipuncture / Unknown 12/08/2024 12:51 PM CDT 12/08/2024 1:05 PM CDT Slime Ace PA-C LAB - HEMATOLOGY ROWAN LANTIGUA Final Result Performing Organization Address [facility]/State/ZIP Co de Phone Number [facility] [address] [place] [address] [[email or web address]] [phone] * (ABNORMAL) COMPREHENSIVE METABOLIC PANEL (12/08/2024 12:51 PM CDT) BUN 9 7 - 26 mg/dL 12/08/2024 1:36 PM [facility] Creatinine 0.73 0.56 - 0.96 mg/dL 12/08/2024 1:36 PM [facility] Sodium 136 136 - 145 mmol/L 12/08/2024 1:36 PM [facility] Potassium 4.3 3.5 - 4.5 mmol/L 12/08/2024 1:36 PM [facility] Chloride 109(H) 98 - 107 mmol/L 12/08/2024 1:36 PM [facility] CO2 24 22 - 29 mmol/L 12/08/2024 1:36 PM [facility] Glucose 107(H) 70 - 99 mg/dL 12/08/2024 1:36 PM [facility] Calcium 8.6 8.4 - 10.2 mg/dL 12/08/2024 1:36 PM [facility] Protein Total 7.7 6.0 - 8.3 g/dL 12/08/2024 1:36 PM [facility] Albumin 4.3 3.4 - 5.0 g/dL 12/08/2024 1:36 PM [facility] Bilirubin Total 0.3 0.2 - 1.2 mg/dL 12/08/2024 1:36 PM [facility] Alkaline Phosphatase 104 40 - 150 U/L 12/08/2024 1:36 PM [facility] ALT 18 5 - 55 U/L 12/08/2024 1:36 PM [facility] AST 21 5 - 34 U/L 12/08/2024 1:36 PM [facility] Anion Gap 3(L) 6 - 16 12/08/2024 1:36 PM [facility] BUN/Creatinine Ratio 12 7 - 23 12/08/2024 1:36 PM [facility] Osmolality Calculated 281 275 - 295 mOsm/kg 12/08/2024 1:36 PM [facility] Albumin/Globulin Ratio 1.3 1.1 - 2.3 12/08/2024 1:36 PM [facility] eGFR by CKD-EPI >90 >=90 mL/min/1.7 3 m2 12/08/2024 1:36 PM [facility] Comment:Estimated Glomerular Filtration Rate (eGFR) calculated using the CKD-EPI Creatinine Equation (2020), per the National Kidney Foundation and [place] Society [employer] Nephrology recommendations. Blood BLOOD SPECIMEN / Unknown Venipuncture / Unknown 12/08/2024 12:51 PM CDT 12/08/2024 1:21 PM CDT us Slime Ace PA-C LAB - CHEMISTRY ORDER FLORENTIN Final Result [facility] [address] [place] [address], [facility] [phone] * HCG BETA BLOOD QUANTITATIVE (12/08/2024 12:51 PM CDT) Beta-hCG Total Quantitative <3 mIU/mL 12/08/2024 2:43 PM CDT [facility] Comment: HCG Numeric Result Interpretation: Non- Females: < 5 mIU/mL Post-Menopausal Females: < 7 mIU/mL This assay is cleared for use in the early detection of only. It is not approved for any other uses such as tumor marker screening, tumor marker monitoring, etc. and should not be used for any other purposes. Blood BLOOD SPECIMEN / Unknown Venipuncture / Unknown 12/08/2024 12:51 PM CDT 12/08/2024 1:21 PM CDT Slime Ace PA-C LAB - CHEMISTRY ORDER FLORENTIN Final Result Performing Organization Address City/[facility]/ZIP Co de Phone Number [address] [address], [facility] [phone] * MAGNESIUM BLOOD (12/08/2024 12:51 PM CDT) [facility] Magnesium 1.9 1.6 - 2.6 mg/dL 12/08/2024 1:36 PM CDT [facility] Blood BLOOD SPECIMEN / Unknown Venipuncture / Unknown 12/08/2024 12:51 PM CDT 12/08/2024 1:21 PM CDT Slime Debbie Ace PA-C LAB - CHEMISTRY ORDER FLORENTIN Final Result Performing Organization Address City/[facility]/ZIP Co de Phone Number [address] [address], [place] [phone] * EKG 12-LEAD (12/08/2024 12:50 PM CDT) Ventricular Rate 120 BPM [facility] Atrial Rate 120 BPM [facility] P-R Interval 156 ms [facility] QRS Duration ms 82 ms [facility] Q-T Interval ms 324 ms [facility] QTC Calculation (Bezet) 457 ms [facility] Calculated P [place] 72 degrees SL MUSE Calculated R [place] 68 degrees [facility] Calculated T [place] 45 degrees [facility] Interpretation EKG SINUS TACHYCARDIA OTHERWISE NORMAL ECG NO PREVIOUS ECGS AVAILABLE Confirmed by CASE DIAZ, SHANIQUA JOYNER ([id number]) on 12/11/2024 2:50:31 PM [facility] 12/08/2024 12:5 0 PM CDT 12/11/2024 2:50 PM CDT Slime Ace PA-Arlene ECG ORDERABLES Edite d Result - Final [facility] * HEPATITIS C AB W/RFLX TO HCV RNA QN PCR (07/19/2021 10:59 AM ACCOUNTS MANAGER) Hepatitis C Antibody NON-REACTI VE NON-REACT [facility] Signal to Cut-Off 0.01 <1.00 [facility] Comment: HCV antibody was non-reactive. There is no laboratory evidence of HCV infection. In most cases, no further action is required. However, if recent HCV exposure is suspected, a test for HCV RNA (test code 47794) is suggested. For additional information please refer to http://education.Pixlee/faq/TQW55t4 (This link is being provided for informational/ educational purposes only.) Test Performed at: [facility] [address] [place] [address] DONTA MULLER DO,MPH Blood BLOOD SPECIMEN / Unknown 07/19/2021 10:59 AM ACCOUNTS MANAGER 07/19/2021 11:00 AM ACCOUNTS MANAGER Tripp Wei MD LAB - CHEMISTRY ORDERABLES Maddy l Result [facility] [address] [place] [address] * HIV-1 HIV-2 ANTIGEN/ANTIBODY W RFLX (11/11/2017 10:56 AM CDT) HIV Screen 4th Generation w Reflex NON-REACT MURRAY NON-REACT [facility] Comment: HIV-1 antigen and HIV-1/HIV-2 antibodies were not detected. There is no laboratory evidence of HIV infection. PLEASE NOTE: This information has been disclosed to you from records whose confidentiality may be protected by state law. If your state requires such protection, then the state law prohibits you from making any further disclosure of the information without the specific written consent of the person to whom it pertains, or as otherwise permitted by law. A general authorization for the release of medical or other information is NOT sufficient for this purpose. For additional information please refer to http://education.Pixlee/faq/PZK264 (This link is being provided for informational/ educational purposes only.) The performance of this assay has not been clinically validated in patients less than 2 years old. Test Performed at: [facility] [address] [place] [address] DONTA MULLER DO,MPH Blood BLOOD SPECIMEN / Unknown 11/11/2017 10:56 AM CDT 11/11/2017 10:56 AM CDT us Aibing Jenifer Barnett MD LAB - SEROLOGY ORDERABLES [facility] Result Performing Organization Address City/State/[facility] Co fl Phone Number [facility] [address] [place] [address] from Last 3 Months or Most Recently Relevant to Health Maintenance Insurance [employer] Advance Directives * Full Code (Latest Code Status on File) Date Activated Date Inactivated Comments 12/09/2024 2:15 AM 12/09/2024 4:42 PM Care Teams Graphic Art Technician Relationship Specialty Start Date End Date Marie Baez [address] [place] [phone] PCP - General 12/08/24
--- OUTSIDE RECORDS SUMMARY | 2025-03-01 12:43 | XMS_ITS | Clinical Summary ---
Author Organization [facility] Address [address] [place] [address] Care Team Providers Care Finisher Tailor Apprentice Name Role Phone Marie Baez NP Primary Care Provider [phone] Allergies Active Allergy Reactions Criticality Noted Date Comments Sulfamethoxazole-Trimethoprim Itching 2024 Medications No known medications Social History Tobacco Use Types Packs/Day Years Used Date Smoking Tobacco: Every Day Cigarettes Smokeless Tobacco: Never Tobacco Cessation:Ready to Q uit: Not Asked; Counseling Given: Not Answered Alcohol Use Standard Drinks/Week Comments Never 0 (1 standard drink = 0.6 oz pur e alcohol) Comments Unknown Sex and Gender Information Value Date Recorded Sex Assigned at Female 09/22/2024 10:16 PM CDT Legal Sex Female 10:13 PM CDT Gender Identity Not on file Sexual Orientation Not on file Last Filed Vital Signs Vital Sign Reading Time Taken Comments Blood Pressure 108/72 09/22/2024 11:00 PM CDT Pulse 63 09/22/2024 10:18 PM CDT Temperature 36.4 C (97.5 F) 09/22/2024 10:18 PM CDT Respiratory Rate 20 09/22/2024 10:18 PM CDT Oxygen Saturation 96% 09/22/2024 11:00 PM CDT Inhaled Oxygen Concentration - - Weight 57.6 kg (127 lb) 09/22/2024 10:18 PM CDT Height 165.1 cm (5' 5) 09/22/2024 10:18 PM CDT Body Mass Index 21.13 09/22/2024 10:18 PM CDT Plan of Treatment Health Maintenance Due Date Last Done Comments Cervical Cancer Screening Pa p Smear (Age 30 to 64) Every 3 Years 1984 Annual Physical 12/13/1987 Hepatitis C 2002 DTaP, Tdap and Td Vaccines ( 1 - Tdap) 12/13/2003 Hepatitis B Vaccines (1 of 3 - 19+ 3-dose series) 12/13/2003 Pneumococcal Vaccine: Pediat rics (0 to 5 Years) and At-Risk Patients (6 to 49 Years) (1 of 2 - PCV) 12/13/2003 HPV Vaccines (1 - 3-dose SCD M series) 12/13/2011 Cervical Cancer Screening Pa p with HPV Testing (Age 30 to 64) Every 5 Years 2014 Cervical Cancer Screening with HPV 2014 Mammogram Screening 2024 COVID-19 Vaccine ( - 2023-2 5 season) 2025 Meningococcal B Vaccine Aged Out No l onger eligible based on patient's age to complete this topic Meningococcal Vaccine Aged Out No sharmaine hood eligible based on patient's age to complete this topic RSV Immunizations Under 20 Months Aged Out No longer eligible based on patient's age to complete this topic Insurance AETNA Care Teams Finisher Tailor Apprentice Relationship Specialty Start Date End Date Marie Baez NP [address] [place] [address] PCP - General NURSE PRACTITIONER 09/22/24
--- OUTSIDE RECORDS SUMMARY | 2025-03-01 12:43 | XMS_ITS | Encounter Summary ---
Author Organization [facility] Address [address] [place] [address] Care Team Providers Care Grape Picker Name Role Phone Paulie Mtz MD Primary Care Provider [phone] None, Physician Primary Care Provider Marie Corona Primary Care Provider [phone] Reason for Visit * Reason Onset Date Comments Refill Request 05/16/2020 Encounter Details Date Type Department Care Team (Late st Contact Info) Description 05/16/2020 Telephone [facility] [address] [place] [address] Dick Barnett MD [address] [facility] [address] [place] [address] Refill Request Social History Tobacco Use Types Packs/Day Years Used Date Smoking Tobacco: Every Day Cigarettes Smokeless Tobacco: Never Alcohol Use Standard Drinks/Week Comments No 0 (1 standard drink = 0.6 oz pur e alcohol) Comments No Sex and Gender Information Value Date Recorded Sex Assigned at Female 10/23/2022 5:56 PM CDT Legal Sex Female 6:28 PM CENTRIFUGAL EXTRACTOR OPERATOR Gender Identity Female 10/23/2022 5:56 PM CDT Sexual Orientation Straight 10/23/2022 5: 56 PM CDT documented as of this encounter Miscellaneous Notes * Telephone Encounter - Dick Barnett MD - 05/16/2020 4:49 PM CST Cassy, please call pt and find out more information. If this is for methotrexate, she needs to have labs done for CBC and CMP. If lab is okay, okay to refill one month RIFUGAL EXTRACTOR OPERATOR * Telephone Encounter - Aimee Villatoro - 05/16/2020 3:06 PM CST Pt called stating she is having a breakout and wanting a med prescribed. PERAL 08/09/19 NOV 06/07/20 RIFUGAL EXTRACTOR OPERATOR documented in this encounter Plan of Treatment Not on file documented as of this encounter Visit Diagnoses Not on filedocumented in this encounter Care Teams Grape Picker Relationship Specialty Start Date End Date Paulie Mtz MD PCP - General 10/19/18 06/06/20 None, Physician [address] [place] [address] PCP - General 04/13/24 12/07/24 Marie Baez [address] [place] [phone] PCP - General 12/08/24 documented as of this encounter
--- OUTSIDE RECORDS SUMMARY | 2025-03-01 12:43 | XMS_ITS | Encounter Summary ---
Author Organization [facility] Address [address] [facility] [place] [address] Care Team Providers Care Child Adolescent Psychiatrist Name Role Phone None, Physician Primary Care Provider Marie Corona Primary Care Provider [phone] Reason for Visit * Reason Onset Date Comments Medication Prior Auth Request 11/26/2023 Encounter Details Date Type Department Care Team (Late st Contact Info) Description 11/26/2023 Telephone [facility] - Dermatology [address] [place] [address], [facility] [place] [address] Tripp Wei MD [address] [place] [address] [address] [place] [address] Medication Prior Auth Request Social History Tobacco Use Types Packs/Day Years Used Date Smoking Tobacco: Every Day Cigarettes Smokeless Tobacco: Never Alcohol Use Standard Drinks/Week Comments No 0 (1 standard drink = 0.6 oz pur e alcohol) PHQ-2 Answer Date Recorded PHQ2 TOTAL SCORE 1 09/28/2020 Comments No Sex and Gender Information Value Date Recorded Sex Assigned at Female 10/23/2022 5:56 PM CDT Legal Sex Female 6:28 PM WIG DRESSER Gender Identity Female 10/23/2022 5:56 PM CDT Sexual Orientation Straight 10/23/2022 5: 56 PM CDT documented as of this encounter Progress Notes * Mindi Carmona - 11/27/2023 7:29 AM CDT Medication Prior Authorization: Medication: Humira 40mg/0.4ml pen Status: Approved 11/26/23 through 11/25/24 Submitted via: Cover My Meds (Ramirez: [id number]) Insurance: [employer] (p: [phone]) (f: [phone]) Case/Reference number: [id number] RX Card Billing Info: BIN: [id number] PCN: [id number] GROUP: [id number] ID: [id number] PA approval notice uploaded to media tab. Will fax approval information to [facility] once TB test is finalized. Mindi Carmona- Pharmacy First Responder (Dermatology) documented in this encounter Miscellaneous Notes * Telephone Encounter - Mindi Carmona - 11/26/2023 3:50 PM CDT PA submitted forcontinuation of therapy Humira 40mg/0.4ml pen maintenance dose of 40mg every 2 weeks via [employer]and currently waiting on decision. Ramirez: [id number] Provider:[id number] ([place]) Mindi Carmona [facility] - Pharmacy First Responder * Telephone Encounter - Joni Pablo - 11/26/2023 2:24 PM CDT Humria 40mg is needing PA due to patients change in insurance Process info [id number] [facility] ID NUMBER [id number] GRP number [employer] Sherronangela [phone] Verbal [phone] documented in this encounter Plan of Treatment Not on file documented as of this encounter Visit Diagnoses Not on filedocumented in this encounter Care Teams Child Adolescent Psychiatrist Relationship Specialty Start Date End Date None, Physician [address] [place] [address] PCP - General 04/13/24 12/07/24 Marie Baez [address] [place] [phone] PCP - General 12/08/24 documented as of this encounter
== END 2025-03-01 12:36 | disposition home or self-care (01) ==
LOC: CHSIMG 12:39
PROVIDERS: Visit Provider Obstetrics & Gynecology
DX: Z12.31 Encounter for screening mammogram for malignant neoplasm of breast (principal)
CPT/HCPCS: 77063; 77067

== ENCOUNTER 2025-04-05 10:09 | Outpatient (CLI) | payer MEDICAID, SELFPAY ==
--- OUTSIDE RECORDS SUMMARY | 2025-04-05 11:32 | XMS_ITS | Clinical Summary ---
Author Organization [facility] Address [address] [place] [address] Care Team Providers Care Waxer Tender Name Role Phone Marie Baez NP Primary Care Provider [phone] Allergies Active Allergy Reactions Criticality Noted Date [...] Mammogram Screening 2024 COVID-19 Vaccine ( - 2024-2 6 season) 2025 Influenza Adult (#1) 2025 Hepatitis A Vaccines Aged Out No long er eligible based on patient's age to complete this topic Meningococcal B Vaccine Aged Out No l onger eligible based on patient's age to complete this topic Meningococcal Vaccine Aged Out No sharmaine hood eligible based on patient's age to complete this topic RSV Immunizations Under 20 Months Aged Out No longer eligible based on patient's age to complete this topic Insurance AETNA Care Teams Waxer Tender Relationship Specialty Start Date End Date Marie Baez NP [address] [place] [phone] PCP - General NURSE PRACTITIONER 09/22/24
--- OUTSIDE RECORDS SUMMARY | 2025-04-05 11:32 | XMS_ITS | Clinical Summary ---
Author Organization [facility] Address [address] [place] [address] Care Team Providers Care Deburr Technician Name Role Phone Joelle Williamson DNP Unavailable [phone] Marie Baez DIE CUT OPERATOR Primary Care Provider Allergies Active Allergy Reactions [...] 06/27/2020 Assessment & Plan (06/28/2020 6:19 PM DIRECTOR OF AVIATION): Hearing test due to Sudden hearing test Call if hearing loss returns Other seborrheic dermatitis 06/07/2020 Overview (11/19/2020): Last Assessment & Plan: - severe involving glabella, eyebrows, and NLF - Rarely washes face, infrequent showering, scalp scale - Keto cream, shampoo, and elidel Sepsis 06/03/2020 Assessment & Plan (06/03/2020 9:41 PM DIRECTOR OF AVIATION): Suspected secondary to possible UTI/pyelo. She also [...] 06/03/2020 Assessment & Plan (06/03/2020 9:35 PM DIRECTOR OF AVIATION): Patient states this was from an accident. She was requesting Tylenol threes or tramadol. Tramadol is not a good medication for patient as she has seizures. Will order p.r.n. Tylenol. Tylenol threes are non formulary. Patient does have a history of opiate dependence. If patient is afebrile, will try heating pad as well. Elevated LFTs 06/03/2020 Assessment & Plan (06/03/2020 9:44 PM DIRECTOR OF AVIATION): Could be due to infection and sepsis. Patient states she she did use IV drug once and was told she has hepatitis-C. Will check a hepatitis C antibody. Patient was hep B and hep C negative in 2019. Dependence on nicotine from cigarettes Assessment & Plan (06/03/2020 9:47 PM DIRECTOR OF AVIATION): Patient stated she wanted to go out to smoke. She was advised she cannot smoke in the hospital. Will order nicotine patch Hearing loss 06/03/2020 Assessment & Plan (06/03/2020 9:56 PM DIRECTOR OF AVIATION): Apparently occurred in the ER. Communication with patient is by writing. Neurology was consulted. May need ENT evaluation. Seizures, generalized convulsive 04/26/2020 Assessment & Plan (06/03/2020 9:45 PM DIRECTOR OF AVIATION): With possible breakthrough seizure. Patient states she [...] 08/24/2014 Assessment & Plan (06/03/2020 9:42 PM DIRECTOR OF AVIATION): Patient's urine was positive for fentanyl although [...] active Assessment & Plan (06/03/2020 9:44 PM DIRECTOR OF AVIATION): Continue fluoxetine, Zyprexa Accidental fentanyl overdose Resolved Problems Problem Noted Date Diagnosed Date Resolved Date Altered mental status 06/03/20202020 Assessment & Plan (06/03/2020 9:37 PM DIRECTOR OF AVIATION): With seizure-like activity. Patient has a history [...] the ER recently, either here or at [place] she cannot remember. Patient was last here in our ER on 05/21 and she received Toradol for pain. Acute kidney injury 06/03/2020 06/04/19 21 Assessment & Plan (06/03/2020 9:40 PM DIRECTOR OF AVIATION): Creatinine was 0.95 2 weeks ago. Suspecting prerenal versus infection although patient also had contrast 2 weeks ago in the ED. will continue with fluids and continue to monitor. Hold all nephrotoxins. Hyperglycemia 06/03/2020 06/04/2020 Assessment & Plan (06/03/2020 9:53 PM DIRECTOR OF AVIATION): Present on admission but no history of [...] sedating meds, including gabapentin, Vicodin, and benzos Immunizations Immunization Administration Dates Next Due Hep [...] on file Legal Sex Female 11:51 PM DIRECTOR OF AVIATION Gender Identity Not on file Sexual Orientation [...] Screening 06/03/2021 06/03/2020 Influenza Vaccine (#1) 2025 2, 05/10/2019, 03/31/2019, Additional history exists Hepatitis C Screening Completed 06/04/2020, 021 Procedures Procedure Name Priority Date/Time Associated Diagnosis Comments HEPATITIS C ANTIBODY Routine 06/04/2020 3:26 AM DIRECTOR OF AVIATION from Last 3 Months or Most Recently Relevant to Health Maintenance Results * Hepatitis C antibody (06/04/2020 3:26 AM DIRECTOR OF AVIATION) Hep C Ab Nonreactive Nonreactive ANNIE LUQUE (SOTO) Comment: Interpretive Data Nonreactive: Antibodies to HCV [...] last revised on 2019. Testing performed by: [facility], [address] [place] [address]., [id number] Blood specimen (specimen) 06/04/2020 3:26 AM DIRECTOR OF AVIATION 06/04/2020 7:01 PM DIRECTOR OF AVIATION us Marcelle Sanchez MD LAB MICROBIOLOGY - GENERAL ORDER [place] Final Result [facility]IE [facility] [address] [facility] [place] [address] from Last 3 Months or Most Recently Relevant to Health Maintenance Insurance [facility] Advance Directives For more information, please contact: [phone] * Full Code (Latest Code Status on File) Date Activated Date Inactivated Comments 06/03/2020 2:30 PM 06/04/2020 4:20 PM * Full Code Date Activated Date Inactivated Comments 02/11/2020 4:21 PM 02/12/2020 5:57 PM Care Teams Deburr Technician Relationship Specialty Start Date End Date Marie Baez NP [address] [place] [id number] PCP - General Nurse Practitioner 09/30/24 Joelle Williamson DNP Nurse Practitioner Neurology 06/04/20
--- OUTSIDE RECORDS SUMMARY | 2025-04-05 11:32 | XMS_ITS | Encounter Summary ---
Author Organization [facility] Address [address] [place] [address] Care Team Providers Care Joinery Factory Worker Name Role Phone None, Physician Primary Care Provider Marie Corona Primary Care Provider [phone] Reason for Visit * Reason Onset Date Comments Medication Prior Auth Request 11/26/2023 Encounter Details Date Type Department Care Team (Late st Contact Info) Description 11/26/2023 Telephone [facility] - Dermatology [address] [place] [address], [facility] [place] [address] Tripp Wei MD [address] [place] [address] [address] [place] [address] Medication Prior Auth Request Social History Tobacco [...] PM CDT Legal Sex Female 6:28 PM GOVERNMENT RELATIONS ANALYST Gender Identity Female 10/23/2022 5:56 PM CDT Sexual Orientation Straight 10/23/2022 5: 56 PM CDT documented as of this encounter Progress Notes * Mindi Carmona - 11/27/2023 7:29 AM CDT Medication Prior Authorization: Medication: Humira 40mg/0.4ml pen Status: Approved 11/26/23 through 11/25/24 Submitted via: Cover My Meds (Ramirez: [id number]) Insurance: [employer] (p: [phone]) (f: [phone]) Case/Reference number: [id number] RX Card Billing Info: BIN: [id number] PCN: [id number] GROUP: [id number] ID: [id number] [place] approval notice uploaded to media tab. Will fax approval information to [facility] once TB test is finalized. Mindi Carmona- Pharmacy Electrotype Finisher (Dermatology) documented in this encounter Miscellaneous Notes * Telephone Encounter - Mindi Carmona - 11/26/2023 3:50 PM CDT PA submitted forcontinuation of therapy Humira 40mg/0.4ml pen maintenance dose of 40mg every 2 weeks via CMMperOptumRxand currently waiting on decision. Ramirez: [id number] Provider:[id number] ([place]) Mindi Carmona [facility] - Pharmacy Electrotype Finisher * Telephone Encounter - Joni Pablo - 11/26/2023 2:24 PM CDT Humria 40mg is needing PA due to patients change in insurance Process info [id number] [facility] ID NUMBER [id number] GRP number [employer] Sherronangela [phone] Verbal [phone] documented in this encounter Plan of Treatment Not on file documented as of this encounter Visit Diagnoses Not on filedocumented in this encounter Care Teams Joinery Factory Worker Relationship Specialty Start Date End Date None, Physician [address] [place] [address] PCP - General 04/13/24 12/07/24 Marie Baez [address] [place] [phone] PCP - General 12/08/24 documented as of this encounter
--- OUTSIDE RECORDS SUMMARY | 2025-04-05 11:32 | XMS_ITS | Encounter Summary ---
Author Organization [facility] Address [address] [place] [address] Care Team Providers Care Community Administrator Name Role Phone Paulie Mtz MD Primary Care Provider [phone] None, Physician Primary Care Provider Marie Corona Primary Care Provider [phone] Reason for Visit * Reason Onset Date Comments Refill Request 05/16/2020 Encounter Details Date Type Department Care Team (Late st Contact Info) Description 05/16/2020 Telephone [facility] [address] [place] [address] Dick Barnett MD [address] [facility] [address]L [place] [address] Refill Request Social History Tobacco Use Types Packs/Day Years Used Date Smoking Tobacco: Every Day Cigarettes Smokeless Tobacco: Never Alcohol Use Standard Drinks/Week Comments No 0 (1 standard drink = 0.6 oz pur e alcohol) Comments No Sex and Gender Information Value Date Recorded Sex Assigned at Female 10/23/2022 5:56 PM CDT Legal Sex Female 6:28 PM SALES PROJECT MANAGER Gender Identity Female 10/23/2022 5:56 PM [...] is okay, okay to refill one month S PROJECT MANAGER * Telephone Encounter - Aimee Villatoro - 05/16/2020 3:06 PM CST Pt called stating she is having a breakout and wanting a med prescribed. PEARL 08/09/19 NOV 06/07/20 S PROJECT MANAGER documented in this encounter Plan of Treatment Not on file documented as of this encounter Visit Diagnoses Not on filedocumented in this encounter Care Teams Community Administrator Relationship Specialty Start Date End Date Paulie Mtz MD PCP - General 10/19/18 06/06/20 None, Physician [address] [place] [address] PCP - General 04/13/24 12/07/24 Marie Baez [address] [place] [phone] PCP - General 12/08/24 documented as of this encounter
--- OUTSIDE RECORDS SUMMARY | 2025-04-05 11:32 | XMS_ITS | Encounter Summary ---
Author Organization [facility] Address [address] [place] [address] Care Team Providers Care Metal Fitters And Machinists Name Role Phone Unknown, Provider Primary Care Provider Paulie Taylor MD Primary Care Provider [phone] None, Physician Primary Care Provider UnavailMarie Perez Primary Care Provider [phone] Reason for Visit * Reason Onset Date Comments General 04/08/2018 Encounter Details Date Type Department Care Team (Late st Contact Info) Description 04/08/2018 Telephone [facility] [address] [place] [address] Dick Barnett MD [address] [facility] [address]L [place] [address] General Social History Tobacco Use Types Packs/Day Years Used Date Smoking Tobacco: Every Day Cigarettes Smokeless Tobacco: Never Alcohol Use Standard Drinks/Week Comments No 0 (1 standard drink = 0.6 oz pur e alcohol) Comments Unknown Sex and Gender Information Value Date Recorded Sex Assigned at Female 10/23/2022 5:56 PM CDT Legal Sex Female 6:28 PM BILINGUAL RECEPTIONIST Gender Identity Female 10/23/2022 5:56 PM CDT Sexual Orientation Straight 10/23/2022 5: 56 PM CDT documented as of this encounter Miscellaneous Notes * Telephone Encounter - Elizabeth Razo MA - 04/08/2018 5:04 PM CST PEARL was 04/06/2018 Was advised that she needed to see Neuro. Was referral sent? Please advise Elizabeth Razo MA NGUAL RECEPTIONIST * Telephone Encounter - Aimee Villatoro - [...] Please check the status of this referral. NGUAL RECEPTIONIST documented in this encounter Plan of Treatment Not on file documented as of this encounter Visit Diagnoses Not on filedocumented in this encounter Care Teams Metal Fitters And Machinists Relationship Specialty Start Date End Date Unknown, Provider PCP - General 11/03/17 10/18/18 Paulie Mtz MD PCP - General 10/19/18 06/06/20 None, Physician [address] [place] [address] PCP - General 04/13/24 12/07/24 Marie Baez [address] [place] [phone] PCP - General 12/08/24 documented as of this encounter
--- OUTSIDE RECORDS SUMMARY | 2025-04-05 11:32 | XMS_ITS | Clinical Summary ---
Author Organization [facility] Address [address] [place] [address] Care Team Providers Care Business Consult Name Role Phone Marie Baez Primary Care Provider [phone] Source Comments [facility],non-owned Affiliates and Associated Physician Practices is amultiple site organization consisting of ambulatory clinics and hospital sitesin [place], [place], [place] and [place]. This disclosure is being madepursuant to the Care Everywhere program and may not contain all information available regarding this patient. Last updated 18.[facility] Allergies Active Allergy Reactions Criticality Noted Date [...] 06/07/2020 Assessment & Plan (06/07/2020 11:29 AM REGISTERED NURSE BEHAVIORAL HEALTH): - previously on Stelara 2013 - Off and on MTX stopped most recently 11/2019, cumulative dose 1550 - controlled on exam today - dovonex PRN Other seborrheic dermatitis 06/07/2020 Assessment & Plan (06/07/2020 11:29 AM REGISTERED NURSE BEHAVIORAL HEALTH): - severe involving glabella, eyebrows, and NLF [...] Vitamin D def - 26 on 02/12/19 Immunizations Immunization Administration Dates Next Due INFLUENZA [...] Date Recorded PHQ2 TOTAL SCORE 1 09/28/2020 [facility] of Occupat ional Health - Occupational Stress [...] any time in the past 12 m [facility], were you homeless or living in a penitentiary (including now)? No 12/08/2024 Comments No Sex and Gender Information Value Date Recorded Sex Assigned at Female 10/23/2022 5:56 PM CDT Legal Sex Female 6:28 PM REGISTERED NURSE BEHAVIORAL HEALTH Gender Identity Female 10/23/2022 5:56 PM CDT [...] Health Maintenance Due Date Last Done Comments LIPID TESTING 1984 MAMMOGRAM 1984 DTAP/TDAP/TD VACCINES (1 - Tdap) 12/13/2003 HEPATITIS B VACCINE (1 of 3 - 19+ 3-dose series) 12/13/2003 PNEUMOCOCCAL VACCINE (1 of 2 - PCV) 12/13/2003 PAP SMEAR 2005 HPV VACCINE (1 - 3-dose SCDM series) 12/13/2011 COVID-19 VACCINE (1 - season) 2025 INFLUENZA VACCINE (#1) 2025 2, 05/10/2019, 03/31/2019, Additional history exists ZOSTER VACCINE (1 of 2) 2034 HIV SCREENING Completed 11/11/2017 HEPATITIS C SCREENING Completed 07/19/2021, 019 HIB VACCINE Aged Out No longer eligi ble based on patient's age to complete this topic MENINGOCOCCAL (Group B) VACCINE SHARED DECISION-MAKING Aged Out No longer eligible based on patient's age to complete this topic MENINGOCOCCAL GROUPS A/C/Y/W VACCINE Aged Out No longer eligible based on patient's age to complete this topic Procedures Procedure Name Priority Date/Time Associated Diagnosis Comments HEPATITIS C AB W/RFLX TO HCV RNA QN PCR Routine 07/19/2021 10:59 AM REGISTERED NURSE BEHAVIORAL HEALTH High risk medications (not anticoagulants) long-term use HIV-1 HIV-2 ANTIGEN/ANTIBODY W RFLX Routine 11/11/2017 10:56 AM CDT Medication management from Last 3 Months or Most Recently Relevant to Health Maintenance Results * HEPATITIS C AB W/RFLX TO HCV RNA QN PCR (07/19/2021 10:59 AM REGISTERED NURSE BEHAVIORAL HEALTH) Hepatitis C Antibody NON-REACTI VE NON-REACT [facility] Signal to Cut-Off 0.01 <1.00 [facility] Comment: HCV antibody was non-reactive. There is no laboratory evidence of HCV infection. In most cases, no further action is required. However, if recent HCV exposure is suspected, a test for HCV RNA (test code 97808) is suggested. For additional information please refer to http://education.[employer]MI [employer])/faq/ONY18b7 (This link is being provided for informational/ educational purposes only.) Test Performed at: [facility] [address] [place] [address] DONTA MULLER DO,MPH Blood BLOOD SPECIMEN / Unknown 07/19/2021 10:59 AM REGISTERED NURSE BEHAVIORAL HEALTH 07/19/2021 11:00 AM REGISTERED NURSE BEHAVIORAL HEALTH us Tripp Wei MD LAB - CHEMISTRY ORDERABLES Maddy opal Result Performing Organization Address [facility] Co de Phone Number [facility] [address] [place] [address] * HIV-1 HIV-2 ANTIGEN/ANTIBODY W RFLX (11/11/2017 [...] purpose. For additional information please refer to http://education.[employer].Promobucket/faq/JBR491 (This link is being provided for informational/ educational purposes only.) The performance of this assay has not been clinically validated in patients less than 2 years old. Test Performed at: [facility] [address] [place] [address] DONTA MULLER DO,MPH Blood BLOOD SPECIMEN / Unknown 11/11/2017 10:56 AM CDT 11/11/2017 10:56 AM CDT us Dick Barnett MD LAB - SEROLOGY ORDERABLES Fin al Result Performing Organization Address [facility]/ZIP Co de Phone Number [facility] [address] [place] [address] from Last 3 Months or Most Recently Relevant to Health Maintenance Insurance [employer] Advance Directives * Full Code (Latest Code Status on File) Date Activated Date Inactivated Comments 12/09/2024 2:15 AM 12/09/2024 4:42 PM Care Teams Business Consult Relationship Specialty Start Date End Date Marie Baez [address] [place] [phone] PCP - General 12/08/24
--- OUTSIDE RECORDS SUMMARY | 2025-04-05 11:32 | XMS_ITS | Clinical Summary ---
Author Organization [facility] Address [address] [place] [address] Phone Care Team Providers Care Housesmith Name Role Phone Unavailable Primary Care Provider [...]
[2025-04-05 19:21] LABS: Hematocrit 43.9 % (37.0-47.0); Hemoglobin 13.9 g/dL (12.0-15.0); Mean Corpuscular HGB Conc 31.7 g/dl (32-36); Mean Corpuscular Hemoglobin 31.0 pg (26-34); Mean Corpuscular Volume 97.8 fl (80-100); Platelet Count Result 318 k/mm3 (150-375); Red Blood Count 4.49 M/mm3 (4.2-5.4); White Blood Count 8.4 K/mm3 (4.5-10.0)
[2025-04-05 19:33] LABS: Alanine Aminotransferase 18 U/L (6-35); Albumin Level 4.9 g/dL (3.5-5.1); Alkaline Phosphatase 73 U/L (38-126); Anion Gap 12 mmol/L (4-12); Aspartate Amino Transferase 61 U/L (14-36); Bilirubin,Total 0.3 mg/dL (0.2-1.3); Blood Urea Nitrogen 17 mg/dL (7-17); Calcium 9.5 mg/dL (8.4-10.2); Carbon Dioxide 25 mmol/L (22-30); Chloride 101 mmol/L (98-107); Cholesterol 191 mg/dL (0-200); Estimated Glomerular Filt Rate > 60; Glucose 65 mg/dL (65-110); HDL Direct 48 mg/dL; Potassium 4.2 mmol/L (3.4-5.0); Sodium 138 mmol/L (137-145); Total Protein 8.2 g/dL (6.3-8.2); Triglycerides 130 mg/dL (<150)
[2025-04-05 19:50] LABS: Iron 101 ug/dL (37-170)
[2025-04-05 20:17] LABS: Free T4 Free Thyroxine 1.00 ng/dL (0.78-2.19); Percent Iron Saturation 28 % (20-50)
[2025-04-05 20:22] LABS: Thyroid Stimulating Hormone 1.520 uIU/mL (0.465-4.680)
[2025-04-05 20:35] LABS: Ferritin 17.30 ng/mL (6.24-137)
[2025-04-12 16:08] LABS: Summary Report (Summary) FINAL (.)
== END 2025-04-05 10:10 | disposition home or self-care (01) ==
PROVIDERS: PCP Nurse Practitioner Adult Health; Visit Provider Nurse Practitioner Adult Health
DX: Z51.81 Encounter for therapeutic drug level monitoring (principal); R53.83 Other fatigue
CPT/HCPCS: 36415; 80053; 80061; 80307; 82728; 83540; 83550; 84439; 84443; 85027